=== PATIENT | male | born 1965 | race African-American/Black ===

== ENCOUNTER 2017-09-02 20:14 | Emergency (ER) | payer MEDICAID ==
[~2017-09-02] VITALS: Ht 180.3 cm; Wt 104.3 kg
--- NOTE | 2017-09-02 21:24 | NUR ---
CALLED PT IN [place] X3. PT STATES HE WANTS TO SLEEP AT THIS TIME.
[2017-09-02] MEDS ORDERED: IBUPROFEN 600 MG TABLET PO ONE ×2 (21:54→22:00)
[2017-09-02] MEDS ORDERED: TRAMADOL HCL 50 MG TABLET ONE (21:54)
[2017-09-02] MEDS ORDERED: TRAMADOL HCL 50 MG TABLET PO ONE (22:00)
[2017-09-02 22:03] VITALS: BP 160/80
== END 2017-09-02 22:03 | disposition home or self-care (01) ==
LOC: ER 20:16
DX: G89.29 Other chronic pain (principal); M25.561 Pain in right knee; M25.562 Pain in left knee; M17.0 Bilateral primary osteoarthritis of knee; I10 Essential (primary) hypertension; Z59.0 Homelessness
CPT/HCPCS: 99283; A4606; Z7610

== ENCOUNTER 2021-10-18 11:17 | Emergency (ER) | payer MEDICAID, OTHER ==
[~2021-10-18] VITALS: Ht 182.9 cm; Wt 107.0 kg
--- NOTE | 2021-10-18 11:17 | NUR ---
MARINA FROM [facility] FOR GTUBE REPLACEMENT "[facility]OMA IS CLOSED ALREADY" PT IS AAOX0 NON VERBAL, ON TRACH AT 6LPM, HOOKED TO V/S MONITOR, KEPT RESTED AND COMFORTABLE. WILL CONTINUE TO MONITOR.
--- NOTE | 2021-10-18 11:35 | NUR ---
MOVE SHEET SUBMITTED AND CALLED FOR MS BED.
--- NOTE | 2021-10-18 11:50 | NUR ---
IV LINE ESTABLISHED BLOOD DRAWN AND SENT TO LAB.
[2021-10-18] MEDS ORDERED: AMLO5TAB4 GT (12:03)
[2021-10-18] MEDS ORDERED: DOCU-141 PO (12:03)
[2021-10-18] MEDS ORDERED: PIPE3.379 IV (12:03)
[2021-10-18] MEDS ORDERED: ALBU8.5H8 IH (12:03)
[2021-10-18] MEDS ORDERED: MULT-447 GT (12:03)
[2021-10-18] MEDS ORDERED: ENOX40DI SQ (12:03)
[2021-10-18] MEDS ORDERED: ASCO500C17 GT (12:03)
[2021-10-18] MEDS ORDERED: FURO-145 PO (12:03)
[2021-10-18] MEDS ORDERED: NUTR250L58 GT (12:03)
[2021-10-18] MEDS ORDERED: ZINC220C6 GT (12:03)
[2021-10-18] MEDS ORDERED: AMIN887L GT (12:03)
--- NOTE | 2021-10-18 12:54 | NUR ---
CALLED DR. JC [phone] GALLEGOS.
[2021-10-18] MEDS ORDERED: CEFTRIAXONE 1GM BAG (ER ONLY) 50 ML IV ONE ×2 (13:00→13:04)
[2021-10-18] MEDS ORDERED: ACETAMINOPHEN 650 MG/SUPP.RECT RC ONE ×2 (13:15→13:30)
[2021-10-18 13:23] LABS: BASOPHILS % (AUTO) 0.4 % (0.0-2.0); EOSINOPHILS % (AUTO) 1.3 % (0.0-6.0); HEMATOCRIT 26 % (39-51); HEMOGLOBIN 8.2 g/dL (13.5-17.5); LYMPHOCYTES # (AUTO) 1.1 K/uL (0.8-4.8); LYMPHOCYTES % (AUTO) 10.2 % (20.0-44.0); MEAN CORPUSCULAR HGB CONC 32 g/dl (31.0-36.0); MEAN CORPUSCULAR VOLUME 82 fL (80-96); MONOCYTES # (AUTO) 0.9 K/uL (0.1-1.30); MONOCYTES % (AUTO) 8.2 % (2.0-12.0); NEUTROPHILS # (AUTO) 8.5 K/uL (1.8-8.9); NEUTROPHILS % (AUTO) 79.9 % (43.0-81.0); PLATELET COUNT (AUTO) 585 K/uL (150-450); RED BLOOD CELL COUNT(AUTO) 3.14 MIL/uL (4.5-6.0); WHITE BLOOD COUNT (AUTO) 10.7 K/uL (4.3-11.0)
--- NOTE | 2021-10-18 13:44 | NUR ---
URINE SPECIMEN COLLECTED AND SENT TO LAB.
--- NOTE | 2021-10-18 14:19 | NUR ---
JAVID RAYO [phone]. WILL FOLLOW UP ABOUT GETTING A BED.
[2021-10-18 14:44] LABS: CALCIUM, SERUM 8.3 mg/dL (8.5-10.1); CARBON DIOXIDE 32 mmol/L (21-32); CHLORIDE 100 mmol/L (98-107); CREATININE 0.5 mg/dL (0.6-1.3); GLUCOSE 101 mg/dL (74-106); POTASSIUM 3.8 mmol/L (3.5-5.1); SODIUM SERUM 139 mmol/L (136-145); UREA NITROGEN, BLOOD 12 mg/dL (7-18)
[2021-10-18 14:51] LABS: ALANINE AMINOTRANSFERASE 41 U/L (12-78); ALKALINE PHOSPHATASE 130 U/L (46-116); ASPARTATE AMINOTRANSFERASE 33 U/L (15-37); BILIRUBIN,DIRECT 0.1 mg/dL (0.0-0.2); BILIRUBIN,TOTAL 0.5 mg/dL (0.2-1.0)
[2021-10-18 14:53] LABS: ALBUMIN 1.4 g/dL (3.4-5.0)
[2021-10-18 15:08] LABS: BILIRUBIN,URINE NEGATIVE (NEGATIVE); COLOR,URINE YELLOW (YELLOW); LEUKOCYTE ESTERASE ,URINE NEGATIVE (NEGATIVE); NITRITE, URINE NEGATIVE (NEGATIVE); PROTEIN,URINE 100 mg/dl (NEGATIVE); UGLUCOSE NEGATIVE (NEGATIVE)
[2021-10-18 15:51] LABS: BACTERIA,URINE None seen /HPF (None Seen); SQUAMOUS EPITHELIAL CELL,UR 0-2 /HPF (None Seen); WBC,URINE 0-2 /HPF (0-3)
--- NOTE | 2021-10-18 15:53 | NUR ---
TRANSFER INFO: ACCEPTING: DR JC NUMBER FOR REPORT: [phone] ROOM: [facility] TRANSPORTATION: [facility] CALL: [phone]
--- NOTE | 2021-10-18 15:59 | NUR ---
CALLED THE [facility] CALL: [phone] NEXT AVAILABLE TRANSPORT IS 2130 PER ILSA
--- NOTE | 2021-10-18 16:02 | NUR ---
JAVID RAYO [phone]. AUTH FOR [facility] IS [id number]
--- NOTE | 2021-10-18 16:05 | NUR ---
CALLED [facility] WITH ETA OF 90 MINS PER SHERLY.
--- NOTE | 2021-10-18 16:06 | NUR ---
CALLED [facility] FOR REPORT ROOM AND RN NOT AVAILABLE. PER UNIT SEC CALL AGAIN AT 1700H.
--- NOTE | 2021-10-18 17:07 | NUR ---
REPORT GIVEN TO EMILY HARTMAN OF [facility].
[2021-10-18 17:28] VITALS: BP 125/62
--- NOTE | 2021-10-18 17:28 | NUR ---
REPORT GIVEN TO EMT FOR PT TRANSFER TO [facility].
== END 2021-10-18 17:55 | disposition short-term general hospital (02) ==
LOC: ER 11:22
DX: Z43.1 Encounter for attention to gastrostomy (principal); R50.9 Fever, unspecified; J98.11 Atelectasis; Z20.822 Contact with and (suspected) exposure to COVID-19; I10 Essential (primary) hypertension; I69.198 Other sequelae of nontraumatic intracerebral hemorrhage; G93.49 Other encephalopathy; Z93.0 Tracheostomy status
CPT/HCPCS: 36415; 71045; 80048; 80076; 81001; 83605; 84145; 84484; 85025; 85730; 87040 ×2; 87081; 87086; 87426; 93005; 96365; 99285; C9803; J0696

== ENCOUNTER 2022-01-17 10:12 | Inpatient (IN) | payer OTHER ==
[~2022-01-17] VITALS: Ht 182.9 cm; Wt 83.5 kg
[~2022-01-17 10:12] MED LIST: ALBU8.5H8 IH; AMIN887L GT; AMLO5TAB4 GT; ASCO500C17 GT; DOCU-141 PO; ENOX40DI SQ; FURO-145 PO; MULT-447 GT; NUTR250L58 GT; PIPE3.379 IV; ZINC220C6 GT
--- NOTE | 2022-01-17 10:20 | NUR ---
JAME FROM [facility] C/O LOW OXYGEN SATURATION OF 80% PER EMS REPORT, SATS AT 96% AT 6LPM UPON ARRIVAL. THE PATIENT IS ALERT AND ORIENTED X3. DENIES PAIN. ATTACHED THE PATIENT TO THE MONITOR. WARM BLANKET PROVIDED FOR COMFORT. WILL CONTINUE TO MONITOR THE PATIENT.
--- NOTE | 2022-01-17 11:00 | NUR ---
COVID SWAB COLLECTED.
[2022-01-17] MEDS ORDERED: ALBUTEROL SULFATE 8 GM HFA.AER.AD IH SCH (12:00)
[2022-01-17] MEDS ORDERED: IV NS 0.9% 500 ML BAG IV ONE ×2 (12:30)
[2022-01-17] MEDS ORDERED: PIPERACILLIN /TAZOBACTAM 3.375 G in IV D5W 50 ML IV ONE (12:30)
[2022-01-17] MEDS ORDERED: VANCOMYCIN 1 GM in IV D5W 250 ML IV ONE (12:30)
--- NOTE | 2022-01-17 12:30 | NUR ---
ONGOING BREATHING TREATMENT
[2022-01-17] MEDS ORDERED: ALBUTEROL FS 2.5 MG/0.5 ML VIAL.NEB ONE (12:32)
[2022-01-17] MEDS: ALBUTEROL FS 2.5 MG/0.5 ML VIAL.NEB NEB SCH (12:33)
[2022-01-17] MEDS ORDERED: VANCOMYCIN 1 GM VIAL ONE (12:35)
[2022-01-17] MEDS ORDERED: PIPERACILLIN /TAZOBACTAM 3.375 G VIAL IV ONE (12:35)
--- NOTE | 2022-01-17 12:35 | NUR ---
MOVE SHEET SUBMITTED
--- NOTE | 2022-01-17 12:35 | NUR ---
RT AT BEDSIDE FOR BREATHING TREATMENT
[2022-01-17 13:38] LABS: BASOPHILS % (AUTO) 0.1 % (0.0-2.0); EOSINOPHILS % (AUTO) 0.1 % (0.0-6.0); HEMATOCRIT 21 % (39-51); LYMPHOCYTES # (AUTO) 0.8 K/uL (0.8-4.8); LYMPHOCYTES % (AUTO) 4.4 % (20.0-44.0); MEAN CORPUSCULAR HGB CONC 31 g/dl (31.0-36.0); MEAN CORPUSCULAR VOLUME 76 fL (80-96); MONOCYTES # (AUTO) 0.6 K/uL (0.1-1.30); MONOCYTES % (AUTO) 3.3 % (2.0-12.0); NEUTROPHILS # (AUTO) 17.4 K/uL (1.8-8.9); NEUTROPHILS % (AUTO) 92.1 % (43.0-81.0); PLATELET COUNT (AUTO) 339 K/uL (150-450); RED BLOOD CELL COUNT(AUTO) 2.71 MIL/uL (4.5-6.0); WHITE BLOOD COUNT (AUTO) 18.9 K/uL (4.3-11.0)
[2022-01-17 13:43] LABS: CALCIUM, SERUM 8.4 mg/dL (8.5-10.1); CARBON DIOXIDE 31 mmol/L (21-32); CHLORIDE 112 mmol/L (98-107); CREATININE 0.7 mg/dL (0.6-1.3); GLUCOSE 72 mg/dL (74-106); POTASSIUM 3.3 mmol/L (3.5-5.1); SODIUM SERUM 149 mmol/L (136-145); UREA NITROGEN, BLOOD 31 mg/dL (7-18)
[2022-01-17 13:56] LABS: ALANINE AMINOTRANSFERASE 65 U/L (12-78); ALKALINE PHOSPHATASE 249 U/L (46-116); ASPARTATE AMINOTRANSFERASE 55 U/L (15-37); BILIRUBIN,DIRECT 0.4 mg/dL (0.0-0.2); BILIRUBIN,TOTAL 0.6 mg/dL (0.2-1.0); TOTAL PROTEIN, SERUM 7.4 g/dL (6.4-8.2)
[2022-01-17 14:05] LABS: ALBUMIN 1.1 g/dL (3.4-5.0)
[2022-01-17 14:19] LABS: HEMOGLOBIN 6.5 g/dL (13.5-17.5)
--- NOTE | 2022-01-17 14:45 | NUR ---
[facility] BED 111-2
--- NOTE | 2022-01-17 14:48 | NUR ---
ATTEMPTED TO GIVE REPORT TO NILESH DIAZ, WITH ANOTHER PATIENT AT THE MOMENT, WILL CALL AGAIN
--- NOTE | 2022-01-17 15:02 | NUR ---
REPORT GIVEN TO NILESH DIAZ FOR SANDIP
--- NOTE | 2022-01-17 15:02 | NUR ---
URINE SAMPLE COLLECTED VIA STRAIGHT CATHETER, SENT TO LAB
--- NOTE | 2022-01-17 15:05 | NUR ---
RN NOTE RECEIVED REPORT FROM ALEX DIAZ FOR SANDIP. PATIENT WILL BE BROUGHT TO ROOM 101.
[2022-01-17 15:45] LABS: BAND % (MANUAL) 20 % (0.0-5.0); LYMPHOCYTES % (MANUAL) 4 % (16-48); METAMYELOCYTES % 2 % (0-0); MONOCYTES % (MANUAL) 2 % (0-11.0); NEUTROPHILS % (MANUAL) 72 (42-76)
[2022-01-17 16:00] VITALS: BP 92/47
[2022-01-17 16:21] LABS: COLOR,URINE DARK YELLOW (YELLOW)
[2022-01-17 16:22] LABS: PH,URINE 6.5 (5.0-8.0); PROTEIN,URINE 1+ mg/dl (NEGATIVE); UGLUCOSE NEGATIVE (NEGATIVE)
[2022-01-17 16:23] LABS: BILIRUBIN,URINE NEGATIVE (NEGATIVE); LEUKOCYTE ESTERASE ,URINE 3+ (NEGATIVE); NITRITE, URINE POSITIVE (NEGATIVE); UROBILINOGEN,URINE 0.2 EU/dL (0.2)
[2022-01-17 16:25] LABS: BACTERIA,URINE 3+ /HPF (None Seen); COARSE GRANULAR CASTS,URINE Few /LPF (None Seen); RBC,URINE 51-80 /HPF (0-2); SQUAMOUS EPITHELIAL CELL,UR Few /HPF (None Seen); WBC,URINE TOO NUMEROUS TO COUN /HPF (0-3)
[2022-01-17] MEDS ORDERED: ONDANSETRON HCL/PF 4 MG/2 ML VIAL IVP PRN (16:30)
[2022-01-17] MEDS ORDERED: ACETAMINOPHEN 325 MG TABLET PO PRN (16:30)
[2022-01-17] MEDS ORDERED: MAG HYDROX/AL HYDROX/SIMETH 30 ML UDC PO PRN (16:30)
--- NOTE | 2022-01-17 16:30 | NUR ---
RN NOTE ATTEMPTED TO CALL PATIENTS BROTHER REGARDING BLOOD CONSENT NO ANSWER
[2022-01-17] MEDS ORDERED: Z GUARD REMEDY 4 OZ OINT TP PRN (17:00)
[2022-01-17] MEDS: VANCOMYCIN 1.25 GM in IV D5W 250 ML IV SCH ×2 (18:00→23:59)
[2022-01-17] MEDS: ZOSYN IVPB 3.375 G in IV D5W 50ml IV SCH ×2 (18:18→23:27)
--- NOTE | 2022-01-17 18:49 | NUR ---
RN NOTE CALLED BLOOD BANK REGARDING PRBC ORDER, BLOOD NOT READY AT THIS MOMENT WILL RECEIVE CALL WHEN READY
--- NOTE | 2022-01-17 18:50 | NUR ---
RN CLOSING NOTE PATIENT RESTING IN BED A/OX0 BUT DOES OPEN EYES. PATIENT ON T PIECE 6L RUNNING. ON BREAKFAST AND ROOM ATTENDANT. PENDING WOUND AND SPEECH EVALUATION. IV ACCESS ON KALYN PICC LINE. PATIENT IS ALSO PENDING PRBC TRANSFUSION CALLED LAB AND WAS INFORMED BLOOD IS NOT READY. WILL ENDORSE ORDERER TO NIGHT NURSE. SAFETY MEASURE IN PLACE CALL LIGHT WITHIN REACH BED ALARM ACTIVATED 2 SIDE RAILS UP AND BED LOCKED IN THE LOWEST POSITION.
--- NOTE | 2022-01-17 19:17 | NUR ---
RN NOTE CALLED PATIENTS FAMILY MEMBER [facility] ANSWER LEFT MESSAGE TO CALL BACK.
--- NOTE | 2022-01-17 19:20 | NUR ---
RN NOTE RECEIVED PATIENT IN BED, OBTUNDED, IN NO ACUTE DISTRESS AT THIS TIME. ON TRACH TO T-PIECE AT 6LPM, SATURATION AT 100%, SR ON THE MONITOR, HR IS 81. KALYN PICC LINE IN PLACE, BOTH HUBS PATENT AND FLUSHING WELL, NO S/S OF INFECTION WITH NS INFUSING AT 75 ML/HR. SAFETY MEASURES IMPLEMENTED. PATIENT BED ALARM IS ON. HEAD OF BED ELEVATED. BED IS LOCKED, IN LOWEST POSITION AND SIDE RAILS UP. CALL LIGHT WITHIN REACH OF THE PATIENT. WILL CONTINUE TO MONITOR AND REASSESS FOR ANY CHANGES.
--- NOTE | 2022-01-17 19:55 | NUR ---
RN NOTE TELEPHONE CALL TO PT'S FAMILY AT [phone], SPOKE WITH MARSHALL LERNER, VERIFIED IF HE IS GIVING CONSENT FOR PATIENT TO HAVE BLOOD TRANSFUSION, HE SAID YES, SHOOK SPLICER ELSA WITNESS.
[2022-01-17 20:00] VITALS: BP_SYST 90; BP_SYST 91; BP_DIAS 45
[2022-01-17 20:15] VITALS: BP 95/54
[2022-01-17] MEDS ORDERED: MAGNESIUM HYDROXIDE 30 ML UDC PO PRN (22:00)
[2022-01-17 23:00] VITALS: BP 94/47
[2022-01-18] VITALS: BP 107/54
[2022-01-18] MEDS: ALBUTEROL FS 2.5 MG/0.5 ML VIAL.NEB NEB SCH ×5 (00:12→19:28)
[2022-01-18 04:00] VITALS: BP 96/51
[2022-01-18] MEDS: ZOSYN IVPB 3.375 G in IV D5W 50ml IV SCH ×4 (05:46→23:20)
[2022-01-18] MEDS: IV NS 0.9% 1,000 ML IV PRN ×2 (06:05→15:01)
[2022-01-18 06:48] LABS: BASOPHILS % (AUTO) 0.4 % (0.0-2.0); EOSINOPHILS % (AUTO) 0.4 % (0.0-6.0); HEMATOCRIT 23 % (39-51); HEMOGLOBIN 7.6 g/dL (13.5-17.5); LYMPHOCYTES # (AUTO) 2.4 K/uL (0.8-4.8); LYMPHOCYTES % (AUTO) 22.1 % (20.0-44.0); MEAN CORPUSCULAR HGB CONC 33 g/dl (31.0-36.0); MEAN CORPUSCULAR VOLUME 77 fL (80-96); MONOCYTES # (AUTO) 0.6 K/uL (0.1-1.30); MONOCYTES % (AUTO) 5.3 % (2.0-12.0); NEUTROPHILS # (AUTO) 7.8 K/uL (1.8-8.9); NEUTROPHILS % (AUTO) 71.8 % (43.0-81.0); PLATELET COUNT (AUTO) 316 K/uL (150-450); RED BLOOD CELL COUNT(AUTO) 3.01 MIL/uL (4.5-6.0); WHITE BLOOD COUNT (AUTO) 10.8 K/uL (4.3-11.0)
[2022-01-18 06:49] LABS: CALCIUM, SERUM 7.9 mg/dL (8.5-10.1); CREATININE 0.9 mg/dL (0.6-1.3); PHOSPHORUS 3.3 mg/dL (2.5-4.9); POTASSIUM 3.5 mmol/L (3.5-5.1)
--- NOTE | 2022-01-18 07:30 | NUR ---
RN NOTE RECEIVED PATIENT IN BED RESTING OBTUNDED,NONVERBAL,LETHARGIC,ON T PIECE 10L FIO2:40% O2:98%,NPO,IV SITE IS ON LEFT UPPER ARM PICC LINE INTACT PATENT,ON NS IV HYDRATION 75CC/HR,SAFETY MEASURE IMPLEMENT BED IN LOW POSITION AND LOCKED HEAD OF THE BED ELEVATED,CONTINUE TO MONITOR.
--- NOTE | 2022-01-18 07:31 | NUR ---
RN NOTE PATIENT HAS CONDOM CATH URINE DARK YELLOW AND CLOUDY DRAINING BY GRAVITY,CONTINUE TO MONITOR.
[2022-01-18] MEDS: VANCOMYCIN 1.25 GM in IV D5W 250 ML IV SCH ×3 (07:36→19:43)
[2022-01-18 08:00] VITALS: BP 99/49
[2022-01-18] MEDS: PANTOPRAZOLE 40 MG VIAL IV SCH (08:17)
--- NOTE | 2022-01-18 11:08 | NUR ---
WOUND CARE CONSULT: PT PRESENTS WITH DRY WOUND/SCARRING TO LEFT EYEBROW AREA, SACRAL UNSTAGEABLE PRESSURE ULCER, WOUND TO RT CLAVICLE, DISCOLORATION TO RT ANKLE, DRY WOUND TO LEFT ANKLE AND DRY SCABS TO RT KNEE, ALL PRESENT ON ADMISSION. DR MCKEON AND DR GARCIA NOTIFIED OF SURGICAL AND DPM CONSULT REQUESTS. RECOMMENDATIONS MADE FOR SKIN PROTECTION. DISCUSSED WITH NURSING STAFF. FIRST STEP LOW AIRLOSS MATTRESS IS ON ORDER. MD IN AGREEMENT WITH PLAN OF CARE. Addendum: 01/18/22 at 1109 by JOCELYNE MACIEL WNDNU Amended: Links added.
[2022-01-18 12:00] VITALS: BP 106/55
[2022-01-18] MEDS: MICAFUNGIN SODIUM 100 MG in IV NS 0.9% 100 ML IV SCH (14:07)
[2022-01-18 16:00] VITALS: BP 97/50
[2022-01-18] MEDS ORDERED: SILVER NITRATE APPLICATOR 1 EA BOX TP SCH (16:00)
[2022-01-18] MEDS ORDERED: LIDOCAINE 1%-EPI 1:200,000 SDV 10 ML VIAL IJ ONE (16:00)
[2022-01-18] MEDS: THERAHONEY GEL 1.5 OZ TUBE TP SCH (16:00)
[2022-01-18] MEDS: ACETAMINOPHEN 650 MG/SUPP.RECT RC PRN (18:18)
--- NOTE | 2022-01-18 18:20 | NUR ---
RN NOTE ACETAMINOPHEN 650 MG PRN GIVEN FOR FEVER 100.0 CONTINUE TO MONITOR.
--- NOTE | 2022-01-18 19:29 | NUR ---
RN NOTE PATIENT REMAINS,OBTUNDED NON VERBAL LETHARGIC ,NPO ON 10 L T-PIECE 40% O2:98% IV SITE IS ON LEFT UPPER ARM PICC LINE INTACT PATENT KEPT PATIENT CLEAN AND DRY ALL THE TIME,KEPT COMFORTABLE,TURNED AND REPOSITIONED EVERY 2 HOURS,HEAD OF THE BED ELEVATED,ALL THE TIME,ENDORSE NEXT COMING SHIFT FOR CONTINUATION OF CARE.
--- NOTE | 2022-01-18 19:30 | NUR ---
PACKAGE CHECKER OPENING NOTE RECEIVED PATIENT IN BED, OBTUNDED, ON TRACH TO T-PIECE AT 6LPM, TOLERATING WELL, O2 SATURATION AT 100%. PT SHOWS NO S/SX OF ACUTE DISTRESS NOTED AT THIS TIME. SR ON TELE MONITOR. KALYN PICC LINE IN PLACE, BOTH HUBS PATENT AND FLUSHING WELL, NO S/S OF INFECTION WITH NS INFUSING AT 75 ML/HR. ALL SAFETY MEASURES IN PLACE: BED ALARM IS ON. HEAD OF BED ELEVATED. BED IS LOCKED, IN LOWEST POSITION AND SIDE RAILS UP. CALL LIGHT WITHIN REACH. WILL CONTINUE TO MONITOR AND REASSESS FOR ANY CHANGES.
--- NOTE | 2022-01-18 19:50 | NUR ---
RN NOTE CALLED RX TO INFORM PT HAS VANCO TROUGH LEVEL OF 35 NOTED TODAY AT 1500. RX SAID THEY HAVE ADJUSTED THE DOSE AND TO GO AHEAD AND GIVE VANCO SCHEDULED FOR 1999. WENT AHEAD AND ADMINISTERED PT'S VANCO.
[2022-01-18 20:00] VITALS: BP 112/61
[2022-01-19] VITALS: BP 134/59
[2022-01-19] MEDS: ALBUTEROL FS 2.5 MG/0.5 ML VIAL.NEB NEB SCH ×4 (01:24→19:24)
[2022-01-19 04:00] VITALS: BP 134/70
[2022-01-19] MEDS: ZOSYN IVPB 3.375 G in IV D5W 50ml IV SCH ×4 (05:21→23:53)
[2022-01-19 06:44] LABS: CALCIUM, SERUM 6.8 mg/dL (8.5-10.1); POTASSIUM 3.1 mmol/L (3.5-5.1)
--- NOTE | 2022-01-19 07:12 | NUR ---
OUTREACH AND EDUCATION SOCIAL WORKER CLOSING NOTE NO SIGNIFICANT CHANGES THROUGHOUT THE SHIFT. PATIENT IN BED, OBTUNDED, ON TRACH TO T-PIECE AT 6LPM, TOLERATING WELL, O2 SATURATION AT 99%. NO S/SX OF ACUTE DISTRESS NOTED. SR TO SB ON TELE MONITOR, HR RANGES BETWEEN 50-60s. KALYN PICC LINE IN PLACE, BOTH HUBS PATENT AND FLUSHING WELL, NO S/S OF INFECTION WITH NS INFUSING AT 75 ML/HR. ALL DUE MEDS GIVEN. ALL NEEDS ATTENDED TO. SAFETY MEASURES IMPLEMENTED: BED ALARM IS ON. HEAD OF BED ELEVATED. BED IS LOCKED, IN LOWEST POSITION AND SIDE RAILS UP. CALL LIGHT WITHIN REACH. WILL ENDORSE TO AM SHIFT NURSE FOR SANDIP.
--- NOTE | 2022-01-19 07:25 | NUR ---
ORIENTAL RUG STRETCHER OPENING NOTE RECEIVED PATIENT IN BED, OBTUNDED, ON TRACH TO T-PIECE AT 6LPM, TOLERATING WELL, O2 SATURATION AT 100%. PT SHOWS NO S/SX OF ACUTE DISTRESS NOTED AT THIS TIME. SR ON TELE MONITOR. KALYN PICC LINE IN PLACE, NO S/S OF INFECTION WITH NS INFUSING AT 75 ML/HR. ALL SAFETY MEASURES IN PLACE: BED ALARM IS ON. HEAD OF BED ELEVATED. BED IS LOCKED, IN LOWEST POSITION AND SIDE RAILS UP. CALL LIGHT WITHIN REACH. PATIENT IS PENDING SWALLOW EVALUATION HE WAS LETHARGIC YESTERDAY AND FAILED EVALUATION.
[2022-01-19 08:00] VITALS: BP 123/75
[2022-01-19] MEDS: PANTOPRAZOLE 40 MG VIAL IV SCH (08:08)
[2022-01-19] MEDS: VANCOMYCIN 1.25 GM in IV D5W 250 ML IV SCH ×2 (08:09→20:00)
[2022-01-19] MEDS: THERAHONEY GEL 1.5 OZ TUBE TP SCH (08:09)
--- NOTE | 2022-01-19 08:09 | NUR ---
RN NOTE LAST VANCO TROUGH NOTED TO BE 35 CALLED PHARMACY, DOSE HAS BEEN ADJUSTED AND TROUGH WILL RE REDRAWN MONTY AT 1900. WILL PROCEED WITH ADMINISTRATION
[2022-01-19] MEDS: IV D5/0.45 NACL 1,000 ML IV SCH ×2 (09:19→21:48)
[2022-01-19] MEDS: POTASSIUM CL. PREMIX PERIPHER. 50 ML IV SCH ×4 (09:20→12:54)
[2022-01-19] MEDS ORDERED: POTASSIUM CL. PREMIX PERIPHER. 50 ML IV SCH (10:00)
--- NOTE | 2022-01-19 10:39 | NUR ---
RN NOTE PICC CATH TIP COLLECTED AND SENT TO LAB FOR CULTURE, CULTURE ORDER PLACED.
[2022-01-19 11:24] LABS: BASOPHILS # (AUTO) 0.1 K/uL (0.0-0.2); BASOPHILS % (AUTO) 0.9 % (0.0-2.0); EOSINOPHILS % (AUTO) 0.7 % (0.0-6.0); HEMATOCRIT 23 % (39-51); HEMOGLOBIN 7.5 g/dL (13.5-17.5); LYMPHOCYTES # (AUTO) 2.6 K/uL (0.8-4.8); LYMPHOCYTES % (AUTO) 24.6 % (20.0-44.0); MEAN CORPUSCULAR HGB CONC 33 g/dl (31.0-36.0); MEAN CORPUSCULAR VOLUME 77 fL (80-96); MONOCYTES # (AUTO) 0.9 K/uL (0.1-1.30); MONOCYTES % (AUTO) 8.4 % (2.0-12.0); NEUTROPHILS # (AUTO) 6.9 K/uL (1.8-8.9); NEUTROPHILS % (AUTO) 65.4 % (43.0-81.0); PLATELET COUNT (AUTO) 377 K/uL (150-450); RED BLOOD CELL COUNT(AUTO) 2.94 MIL/uL (4.5-6.0); WHITE BLOOD COUNT (AUTO) 10.6 K/uL (4.3-11.0)
[2022-01-19 11:34] LABS: CALCIUM, SERUM 7.4 mg/dL (8.5-10.1); CREATININE 1.1 mg/dL (0.6-1.3); POTASSIUM 3.4 mmol/L (3.5-5.1)
[2022-01-19 12:00] VITALS: BP 126/72
[2022-01-19 16:00] VITALS: BP 124/64
[2022-01-19] MEDS: MICAFUNGIN SODIUM 100 MG in IV NS 0.9% 100 ML IV SCH (16:01)
--- NOTE | 2022-01-19 18:41 | NUR ---
CONCRETE TESTER CLOSING NOTE NO SIGNIFICANT CHANGES THROUGHOUT THE SHIFT. PATIENT IN BED, OBTUNDED, ON TRACH TO T-PIECE AT 6LPM, TOLERATING WELL, O2 SATURATION AT 99%. NO S/SX OF ACUTE DISTRESS NOTED. SR TO SB ON TELE MONITOR, HR RANGES BETWEEN 50-60s. ARYAN MIDLINE LINE IN PLACE, BOTH HUBS PATENT AND FLUSHING WELL, NO S/S OF INFECTION WITH D 5 1/2NS INFUSING AT 75 ML/HR. ALL DUE MEDS GIVEN. ALL NEEDS ATTENDED TO. SAFETY MEASURES IMPLEMENTED: BED ALARM IS ON. HEAD OF BED ELEVATED. BED IS LOCKED, IN LOWEST POSITION AND SIDE RAILS UP. CALL LIGHT WITHIN REACH. WILL ENDORSE TO NIGHT NURSE FOR SANDIP.
--- NOTE | 2022-01-19 19:30 | NUR ---
RN OPENING NOTE RECEIVED CARE OF PATIENT FROM AM NURSE, PATIENT OBTUNDED, NON-INTERACTIVE, OPENS EYES. PATIENT NOTED WITH TRACH TO T-PIECE AT 10L/MIN, O2 SAT 100%, TOLERATING WELL. PATIENT ON TELE MONITOR SHOWING SR WITH HR OF 75, NO DISTRESS NOTED ON PATIENT. ARYAN MIDLINE LINE IN PLACE WITH D 5 1/2NS INFUSING AT 75 ML/HR. SAFETY MEASURES IMPLEMENTED: BED ALARM IS ON. HEAD OF BED ELEVATED. BED IS LOCKED, IN LOWEST POSITION AND SIDE RAILS UP. CALL LIGHT WITHIN REACH. WILL CONTINUE TO MONITOR PATIENT.
[2022-01-19 20:00] VITALS: BP 117/54
--- NOTE | 2022-01-19 20:36 | NUR ---
RN NOTES WILL HOLD VANCO 1.25GM IN IV D5W 250 ML ADMINISTRATION DUE TO VANCO TROUGH OF 36. [facility] AFTER HOURS MADE AWARE. NO NEW ORDERS FROM PHARMACY AT THIS TIME.
[2022-01-20] VITALS: BP 118/62
[2022-01-20] MEDS: ALBUTEROL FS 2.5 MG/0.5 ML VIAL.NEB NEB SCH ×4 (01:27→19:32)
[2022-01-20 04:00] VITALS: BP 120/52
[2022-01-20] MEDS: ZOSYN IVPB 3.375 G in IV D5W 50ml IV SCH ×4 (05:28→23:57)
--- NOTE | 2022-01-20 06:28 | NUR ---
RN CLOSING NOTES WILL ENDORSE CARE OF PATIENT TO AM NURSE WITH NO SIGNIFICANT CHANGES TO PATIENT'S CONDITION. NO SIGNIFICANT FINDINGS UPON ALL NURSING ASSESSMENTS. ALL DUE MEDS GIVEN AND WOUND CARE DONE ORDERED. PATIENT'S NEEDS ANTICIPATED AND MET THROUGHOUT SHIFT. SAFETY MEASURES IMPLEMENTED PER HOSPITAL PROTOCOLS. WILL ENDORSE TO AM NURSE FOR CONTINUITY OF CARE.
[2022-01-20 06:38] LABS: BASOPHILS # (AUTO) 0.1 K/uL (0.0-0.2); BASOPHILS % (AUTO) 0.6 % (0.0-2.0); EOSINOPHILS % (AUTO) 0.7 % (0.0-6.0); HEMATOCRIT 23 % (39-51); HEMOGLOBIN 7.4 g/dL (13.5-17.5); LYMPHOCYTES # (AUTO) 2.4 K/uL (0.8-4.8); LYMPHOCYTES % (AUTO) 24.9 % (20.0-44.0); MEAN CORPUSCULAR HGB CONC 32 g/dl (31.0-36.0); MEAN CORPUSCULAR VOLUME 78 fL (80-96); MONOCYTES # (AUTO) 0.9 K/uL (0.1-1.30); MONOCYTES % (AUTO) 9.3 % (2.0-12.0); NEUTROPHILS # (AUTO) 6.2 K/uL (1.8-8.9); NEUTROPHILS % (AUTO) 64.5 % (43.0-81.0); PLATELET COUNT (AUTO) 384 K/uL (150-450); RED BLOOD CELL COUNT(AUTO) 2.94 MIL/uL (4.5-6.0); WHITE BLOOD COUNT (AUTO) 9.5 K/uL (4.3-11.0)
[2022-01-20 07:04] LABS: CALCIUM, SERUM 7.4 mg/dL (8.5-10.1); CREATININE 1.2 mg/dL (0.6-1.3); POTASSIUM 3.7 mmol/L (3.5-5.1)
--- NOTE | 2022-01-20 07:50 | NUR ---
PATIENT FOUND C/A 40% WITH SAT 98%. PATIENT REMAIN STABLE WITHOUT SOB. Addendum: 01/20/22 at 0751 by MOISES CERNA RT Amended: Links added.
--- NOTE | 2022-01-20 07:57 | NUR ---
telecommunications sales representative ote patient in bed with trach to cooler aerosol 10l fio2 40% , obtunded, on tele monitor, sr hr 63 at this time rt at bedside breathing tx doing , on npo at this time, all needs attended, with condom cath yellow color urine noted , lt upper arn mid line in place and flushed well all needs attended will monitor,
[2022-01-20 08:00] VITALS: BP 115/56
[2022-01-20] MEDS: VANCOMYCIN 1.25 GM in IV D5W 250 ML IV SCH ×3 (08:00→21:40)
[2022-01-20] MEDS: PANTOPRAZOLE 40 MG VIAL IV SCH (08:33)
[2022-01-20] MEDS: THERAHONEY GEL 1.5 OZ TUBE TP SCH (08:35)
--- NOTE | 2022-01-20 09:28 | NUR ---
CHIEF ENTERPRISE ARCHITECT NOTE [facility] LEVEL 23 PHARMACY NOTIFIED WILL HOLD DOSE AT THIS TIME
[2022-01-20] MEDS: IV D5/0.45 NACL 1,000 ML IV SCH (10:34)
[2022-01-20 12:00] VITALS: BP 123/66
--- NOTE | 2022-01-20 12:00 | NUR ---
PIERCING MACHINE OPERATOR NOTE TURN REPOSITION ALL NEEDS ATTENDED
--- NOTE | 2022-01-20 13:30 | NUR ---
REIMBURSEMENT CONSULTANT NOTE TAKEN TO CT CHEST ORDERED WITH RT , WILL F\U
[2022-01-20] MEDS: MICAFUNGIN SODIUM 100 MG in IV NS 0.9% 100 ML IV SCH (14:51)
[2022-01-20 16:00] VITALS: BP 121/71
--- NOTE | 2022-01-20 16:30 | NUR ---
television receiver analyzer note resting comfortably , all needs attended rt at bedside will cont to monitor closely
--- NOTE | 2022-01-20 18:56 | NUR ---
television actor note rounds made, with trach to cooler aerosol as ordered, no sob noted , trach care done turn reposition done, on ivf as ordered bed in lowest and locked position , will cont to monitor closely
[2022-01-20 20:00] VITALS: BP_SYST 105; BP_SYST 126; BP_DIAS 59
--- NOTE | 2022-01-20 21:25 | NUR ---
manufacturing maintenance technician Opening Note Pt received in bed, obtunded with eyes open, non-verbal. Pt noted to have trach with Portex #7 on cool aerosol at 10L, FiO2 at 40%. Pt has no s/s of resp distress, non-labored and equal breathing, no SOB or cough. Pt attached to external monitor, currently SR with HR at 81 bpm. Pt noted to have condom cath and is draining clear and yellow urine. Pt has ARYAN midline 18G, currently has D5 1/2 NS running at 75 ml/hr; midline intact and patent. Bed in lowest position, call light within reach, side rails up x3. Will continue to monitor throughout the night. Addendum: 01/20/22 at 2133 by PRINCESS SUSANA DIAZ O2sat currently 100%.
--- NOTE | 2022-01-20 21:33 | NUR ---
RN Note Pt noted to have vanco trough of 23. [facility] made aware and advised to hold Vanco scheduled for 2099. Addendum: 01/20/22 at 2138 by PRINCESS SUSANA DIAZ RN Note Vanco trough level result came back 01/20/22 at 1947 and is noted to be 18. Vanco will be administered as scheduled.
[2022-01-21] VITALS: BP 128/66
[2022-01-21] MEDS: ALBUTEROL FS 2.5 MG/0.5 ML VIAL.NEB NEB SCH ×4 (01:48→20:23)
[2022-01-21] MEDS: IV D5/0.45 NACL 1,000 ML IV SCH ×2 (02:46→14:05)
[2022-01-21 04:00] VITALS: BP 134/73
[2022-01-21] MEDS: ZOSYN IVPB 3.375 G in IV D5W 50ml IV SCH (05:00)
--- NOTE | 2022-01-21 06:01 | NUR ---
assembler mechanical ordnance Closing Note Pt remains in bed, obtunded, non-verbal, opens eyes. Pt remains on trach collar at 10L cool aerosol qith FiO2 40%; pt shows no s/s of resp distress throughout the night, no SOB or cough noted, has non-labored and equal breathing. Attached to external monitor, SB-SR with HR as low as 48 abd was as high as 63. Pt's condom cath intact and patent, draining clear and yellow urine. ARYAN midline remains intact and patent with D5 1/2 NS running at 75 ml/hr; infused IV vanco and zosyn during shift. Pt remained NPO throughout the night. All due meds and fluids administered during shift. Bed in lowest position, call light within reach, side rails up x3. Will endorse to dayshift nurse to continue care.
[2022-01-21 06:46] LABS: CALCIUM, SERUM 7.8 mg/dL (8.5-10.1); CREATININE 1.1 mg/dL (0.6-1.3); POTASSIUM 3.4 mmol/L (3.5-5.1)
--- NOTE | 2022-01-21 07:00 | NUR ---
engraver pantograph Opening Note Received patient from nightshift RN. Patient remains in bed, obtunded, non-verbal, opens eyes and tracking. Patient remains on trach collar at 10L cool aerosol qith FiO2 40%; patient shows no signs or symptoms of respiratory distress, no shortness of breath or cough noted, has non-labored and equal breathing. Attached to external monitor. Patient's condom catheter is intact and patent, draining clear and yellow urine. Left upper arm midline remains intact and patent with D5 1/2 NS running at 75 ml/hr. NPO status noted. Bed in lowest position, call light within reach, side rails up x3. Will continue plan of care and anticipate needs.
[2022-01-21 07:03] LABS: BASOPHILS # (AUTO) 0.1 K/uL (0.0-0.2); BASOPHILS % (AUTO) 0.5 % (0.0-2.0); EOSINOPHILS % (AUTO) 0.7 % (0.0-6.0); HEMATOCRIT 23 % (39-51); HEMOGLOBIN 7.1 g/dL (13.5-17.5); LYMPHOCYTES # (AUTO) 2.3 K/uL (0.8-4.8); LYMPHOCYTES % (AUTO) 20.8 % (20.0-44.0); MEAN CORPUSCULAR HGB CONC 31 g/dl (31.0-36.0); MEAN CORPUSCULAR VOLUME 79 fL (80-96); MONOCYTES # (AUTO) 0.9 K/uL (0.1-1.30); MONOCYTES % (AUTO) 7.8 % (2.0-12.0); NEUTROPHILS # (AUTO) 7.9 K/uL (1.8-8.9); NEUTROPHILS % (AUTO) 70.2 % (43.0-81.0); PLATELET COUNT (AUTO) 389 K/uL (150-450); RED BLOOD CELL COUNT(AUTO) 2.86 MIL/uL (4.5-6.0); WHITE BLOOD COUNT (AUTO) 11.2 K/uL (4.3-11.0)
[2022-01-21 08:00] VITALS: BP 118/54
--- NOTE | 2022-01-21 08:01 | NUR ---
pt. is awake but unable to follow commands, decreased fio2 from 40% to 28% fio2 via cool aerosol due to 99% - 100% spo2. rn notified on changes made. Addendum: 01/21/22 at 0803 by ALTON ZAPIEN RT Amended: Links added.
[2022-01-21] MEDS: THERAHONEY GEL 1.5 OZ TUBE TP SCH (08:09)
[2022-01-21] MEDS: PANTOPRAZOLE 40 MG VIAL IV SCH (08:09)
[2022-01-21] MEDS: POTASSIUM CL. PREMIX PERIPHER. 50 ML IV SCH ×2 (10:37→11:00)
[2022-01-21 12:00] VITALS: BP 123/53
[2022-01-21] MEDS: CEFEPIME 1 GM in IV D5W 50 ML IV SCH (12:33)
[2022-01-21] MEDS: MICAFUNGIN SODIUM 100 MG in IV NS 0.9% 100 ML IV SCH (14:06)
[2022-01-21 16:00] VITALS: BP 126/54
--- NOTE | 2022-01-21 16:00 | NUR ---
RN NOTE DURING ROUTINE PATIENT ROUNDING, NOTICED PATIENT HAD SECRETIONS COMING FROM TRACH SITE. SUCTIONED TWO TIMES AND PERFORMED TRACH CARE. WILL CONTINUE PLAN OF CARE AND ANTICIPATE NEEDS.
--- NOTE | 2022-01-21 18:54 | NUR ---
assessment director Closing Note Patient remains in bed, obtunded, non-verbal, opens eyes and tracking. Patient remains on trach collar at 10L cool aerosol qith FiO2 40%; patient shows no signs or symptoms of respiratory distress, no shortness of breath or cough noted, has non-labored and equal breathing. Attached to external monitor. Patient's condom catheter is intact and patent, draining clear and yellow urine. Left upper arm midline remains intact and patent with D5 1/2 NS running at 75 ml/hr. NPO status noted. Bed in lowest position, call light within reach, side rails up x3. Will endorse to nightshift RN for continuation of care.
[2022-01-21 20:00] VITALS: BP 155/83
[2022-01-21] MEDS: ACETAMINOPHEN 650 MG/SUPP.RECT RC PRN (22:10)
--- NOTE | 2022-01-21 22:11 | NUR ---
RN NOTES: PT'S TEMP INCREASED TO 100.9 F, TYLENOL SUPPOSITORY GIVEN AND PT TOLERATED WELL. WILL CONTINUE TO MONITOR
[2022-01-22] VITALS: BP 132/74
[2022-01-22] MEDS: CEFEPIME 1 GM in IV D5W 50 ML IV SCH ×2 (00:25→11:09)
[2022-01-22] MEDS: ALBUTEROL FS 2.5 MG/0.5 ML VIAL.NEB NEB SCH ×4 (02:09→19:30)
[2022-01-22] MEDS: IV D5/0.45 NACL 1,000 ML IV SCH ×2 (03:45→19:55)
[2022-01-22 04:00] VITALS: BP 130/72
--- NOTE | 2022-01-22 06:37 | NUR ---
RN CLOSING NOTES: PT IN BED, AWAKE, OBTUNDED, NON- VERBAL. ON SETTING T-PIECE AT 5L/MIN WITH COLD AEROSOL. O2 SAT 100%. IV ACCESS ON ARYAN MIDLINE INTACT AND PATENT. RUNNING D5 1/2 NS AT 75CC/HR. NO FACIAL GRIMACING NOTED. NO ACUTE DISTRESS. STILL NOTED LOTS OF SECRETION. SUCTION NEEDED. ALL DUE MEDS GIVEN PER ORDERED. PT AFEBRILE. ON CONDOM CATHETER, RUNNING BY GRAVITY. NOTED BEBETO COLOR URINE. ALL SAFETY MEASURES IN PLACE. SIDE RAILS UP X3, BED IN LOWEST POSITION AND LOCKED. PLACE CALL LIGHT WITH IN REACH. WILL ENDORSE TO MORNING SHIFT NURSE.
--- NOTE | 2022-01-22 07:00 | NUR ---
RN NOTES RECEIVED PT ON BED, TRACH DEPENDENT, ON T PIECE , PT NON VERBAL , DOES NOT FOLLOW COMMAND, ON TELE SB HR IN 50'S , IV SITE CLEAN ,DRY AND INTAC,T SR UP x3 , CALL LIGHT WITHIN EASY REACH, BED LOCKED AND IN LOWEST POSITION, CONTINUE TO MONITOR
[2022-01-22 08:00] VITALS: BP 141/73
[2022-01-22 08:24] LABS: BASOPHILS % (AUTO) 0.3 % (0.0-2.0); EOSINOPHILS % (AUTO) 1.2 % (0.0-6.0); HEMATOCRIT 25 % (39-51); HEMOGLOBIN 7.7 g/dL (13.5-17.5); LYMPHOCYTES # (AUTO) 1.9 K/uL (0.8-4.8); LYMPHOCYTES % (AUTO) 20.1 % (20.0-44.0); MEAN CORPUSCULAR HGB CONC 32 g/dl (31.0-36.0); MEAN CORPUSCULAR VOLUME 80 fL (80-96); MONOCYTES # (AUTO) 0.7 K/uL (0.1-1.30); MONOCYTES % (AUTO) 7.3 % (2.0-12.0); NEUTROPHILS # (AUTO) 6.6 K/uL (1.8-8.9); NEUTROPHILS % (AUTO) 71.1 % (43.0-81.0); PLATELET COUNT (AUTO) 382 K/uL (150-450); RED BLOOD CELL COUNT(AUTO) 3.09 MIL/uL (4.5-6.0); WHITE BLOOD COUNT (AUTO) 9.2 K/uL (4.3-11.0)
[2022-01-22 08:38] LABS: CALCIUM, SERUM 7.6 mg/dL (8.5-10.1); CREATININE 0.9 mg/dL (0.6-1.3); PHOSPHORUS 3.5 mg/dL (2.5-4.9); POTASSIUM 3.1 mmol/L (3.5-5.1)
[2022-01-22] MEDS: PANTOPRAZOLE 40 MG VIAL IV SCH (09:11)
[2022-01-22] MEDS: THERAHONEY GEL 1.5 OZ TUBE TP SCH (09:12)
[2022-01-22] MEDS: VANCOMYCIN 1.25 GM in IV D5W 250 ML IV SCH (09:14)
[2022-01-22] MEDS: POTASSIUM CL. PREMIX PERIPHER. 50 ML IV SCH ×4 (11:07→14:11)
[2022-01-22 12:00] VITALS: BP 133/74
[2022-01-22] MEDS: MICAFUNGIN SODIUM 100 MG in IV NS 0.9% 100 ML IV SCH (13:50)
[2022-01-22 16:00] VITALS: BP 95/45
--- NOTE | 2022-01-22 18:00 | NUR ---
RN NOTES NO SIGNFICANT CHANGES NOTED ON THIS SHIFT, WILL ENDORSE TO HEALTH AND SAFETY MANAGER NURSE FOR CONTINUITY OF CARE .
--- NOTE | 2022-01-22 19:20 | NUR ---
RN opening notes Received Pt from morning nurse. Pt is resting in bed comfortably. Pt is obtunded, non verbal and able to open eyes. On cool aerosol. No SOB. No S/S of distress noted. Tele monitor showed [facility] at 49. ARYAN midline is clean, intact and infusing well D51/2 NS @ 75 ml/hr. Safety precautions is maintained. Bed at low position, brakes locked, side rails upX3, hob elevated, bed alarm is on and call light is within reach. Will continue to monitor.
--- NOTE | 2022-01-22 19:30 | NUR ---
RN notes Pt is going to have PEG placement with Dr. Bob accompanied by primary nurse, two OR nurse and RT. Charge nurse is aware and informed.
[2022-01-22] MEDS ORDERED: ANESTHESIA TRAY IN PYXIS 1 EA TRAY MC ONE (19:38)
--- NOTE | 2022-01-22 20:37 | NUR ---
RN notes Pt just came from OR with NS infuising. Received report from EMILY Dawson. VS is stable. Pt tolerated activity well. Dressing is intact with very minimal blood. EMILY Dawson informed that is normal after procedure. Will continue to monitor.
--- NOTE | 2022-01-22 20:38 | NUR ---
RN notes Per Eunice RN Dr. Bob ordered NPO excepts meds and starts feeding in am and nutritional consult ordered.
--- NOTE | 2022-01-22 20:45 | NUR ---
RN notes Gave Pharmacist Ethan Pt's meds lists from Dr. Bob.
[2022-01-22 21:00] VITALS: BP 113/63
--- NOTE | 2022-01-22 22:26 | NUR ---
RN notes Informed and notified Dr. Anderson that Pt is bedbound, open wound on sacral area and urinating a lot. MD ordered squires cath. order carried out. charge nurse is aware and informed.
[2022-01-22] MEDS ORDERED: Potassium Chloride 30 MEQ in IV D5/0.45 NACL 1,000 ML IV SCH (22:30)
[2022-01-22] MEDS ORDERED: IV PREMIX D5 1/2NS + KCL 1,000 ML IV ONE (23:13)
--- NOTE | 2022-01-22 23:31 | NUR ---
RN notes Informed and notifed Dr. Cuellar that IV premix potassium chloride 30 meq D5 1/2 NS is not available at this time. Rechecked with kayley Vasquez RN. We don't have IV fluids at this time. MD ordered 20 meq in D5 1/2 NS @ 75 ml/hr. Charge nurse is aware and informed. Order carried out.
[2022-01-22] MEDS: IV PREMIX D5 1/2NS + KCL 1,000 ML IV SCH (23:42)
[2022-01-23] VITALS: BP 131/75
[2022-01-23] MEDS: CEFEPIME 1 GM in IV D5W 50 ML IV SCH ×2 (00:28→11:38)
--- NOTE | 2022-01-23 01:39 | NUR ---
RN notes Wound care provided as ordered. Pt tolerated activity well.
[2022-01-23] MEDS: ALBUTEROL FS 2.5 MG/0.5 ML VIAL.NEB NEB SCH ×4 (02:16→20:32)
[2022-01-23 04:00] VITALS: BP 115/63
[2022-01-23 06:30] LABS: BASOPHILS # (AUTO) 0.1 K/uL (0.0-0.2); BASOPHILS % (AUTO) 0.6 % (0.0-2.0); EOSINOPHILS % (AUTO) 0.8 % (0.0-6.0); HEMATOCRIT 29 % (39-51); HEMOGLOBIN 9.1 g/dL (13.5-17.5); LYMPHOCYTES # (AUTO) 1.5 K/uL (0.8-4.8); MEAN CORPUSCULAR HGB CONC 32 g/dl (31.0-36.0); MEAN CORPUSCULAR VOLUME 81 fL (80-96); MONOCYTES # (AUTO) 0.5 K/uL (0.1-1.30); MONOCYTES % (AUTO) 4.9 % (2.0-12.0); NEUTROPHILS # (AUTO) 7.7 K/uL (1.8-8.9); NEUTROPHILS % (AUTO) 78.7 % (43.0-81.0); PLATELET COUNT (AUTO) 426 K/uL (150-450); RED BLOOD CELL COUNT(AUTO) 3.58 MIL/uL (4.5-6.0); WHITE BLOOD COUNT (AUTO) 9.7 K/uL (4.3-11.0)
--- NOTE | 2022-01-23 06:40 | NUR ---
RN closing notes Pt is resting in bed comfortably. Pt is obtunded, non verbal and able to open eyes. On cool aerosol. No SOB. No S/S of distress noted. Tele monitor showed SR Hr at 62. ARYAN midline is clean, intact and infusing well D51/2ns with 20 meq @ 75 ml/hr. abd dressing (peg) is clean, intact and dry. Kept Pt clean, dry and comfortable. Safety precautions is maintained. Bed at low position, brakes locked, side rails upX3, hob elevated, bed alarm is on and call light is within reach. Will continue to monitor.
[2022-01-23 07:48] LABS: CALCIUM, SERUM 8.2 mg/dL (8.5-10.1); CREATININE 0.8 mg/dL (0.6-1.3); POTASSIUM 3.6 mmol/L (3.5-5.1)
[2022-01-23 08:00] VITALS: BP 104/66
[2022-01-23] MEDS ORDERED: VITAL AF 1.2 1,000 ML BOTTLE GT PRN (08:30)
[2022-01-23] MEDS: VANCOMYCIN 1.25 GM in IV D5W 250 ML IV SCH (08:32)
[2022-01-23] MEDS: THERAHONEY GEL 1.5 OZ TUBE TP SCH (08:32)
[2022-01-23] MEDS: PANTOPRAZOLE 40 MG VIAL IV SCH (08:32)
--- NOTE | 2022-01-23 11:00 | NUR ---
RN NOTE TUBE FEEDING INITIATED ORDERED, STARTED AT 30CC/HR.
[2022-01-23 12:00] VITALS: BP 105/55
[2022-01-23] MEDS: IV PREMIX D5 1/2NS + KCL 1,000 ML IV SCH (12:10)
[2022-01-23] MEDS: MICAFUNGIN SODIUM 100 MG in IV NS 0.9% 100 ML IV SCH (14:11)
--- NOTE | 2022-01-23 15:00 | NUR ---
RN NOTE NO RESIDUAL FROM TUBE FEEDING, INCREASED TO 35CC/HR.
[2022-01-23 16:00] VITALS: BP 109/56
--- NOTE | 2022-01-23 16:41 | NUR ---
RN NOTE NO RESIDUAL, TUBE FEEDING INCREASED TO 40CC/HR.
[2022-01-23 20:00] VITALS: BP 107/80
--- NOTE | 2022-01-23 22:12 | NUR ---
dyer helper Opening Note Pt received in bed, obtunded, non-verbal, opens eyes. Has T-piece, portex #7, FiO2 28% at 5L cool aerosol; pt noted to be tachypneic, but no other s/s of resp distress, no SOB, non-labored and equal breathing. Pt attached to external monitor, SR with HR 60. Villaseñor intact and patent, draining yellow and cloudy urine. Pt noted to have GT with Vital 1.2 running at 40 ml/hr; has 100 ml residual, will not be increasing feeding rate at this time. ARYAN midline intact and patent; has D5 1/2 NS and KCl running at 75 ml/hr. Pt noted to have temp of 101.3; blankets removed and ice packs applied; will continue to monitor. Bed in lowest position, call light within reach, side rails up x3. Will continue to monitor throughout the night.
--- NOTE | 2022-01-23 22:19 | NUR ---
RN Note Pt's temperature decreased from 101.3 to 99.4. Will closely monitor temp.
[2022-01-24] VITALS: BP 137/69
[2022-01-24] MEDS: CEFEPIME 1 GM in IV D5W 50 ML IV SCH ×2 (00:03→12:02)
--- NOTE | 2022-01-24 00:18 | NUR ---
RN Note Pt continues to have 10 ml residual from GT; will not be increasing feeding rate at this time. Addendum: 01/24/22 at 0018 by PRINCESS SUSANA DIAZ 100 ml residual
[2022-01-24] MEDS: ALBUTEROL FS 2.5 MG/0.5 ML VIAL.NEB NEB SCH ×2 (01:57→08:52)
[2022-01-24] MEDS: IV PREMIX D5 1/2NS + KCL 1,000 ML IV SCH (02:05)
[2022-01-24 04:00] VITALS: BP 131/77
--- NOTE | 2022-01-24 04:04 | NUR ---
RN Note No residual noted from GT; GTF rate increased to 50 ml/hr.
--- NOTE | 2022-01-24 06:26 | NUR ---
bsw Closing Note Pt remains in bed, obtunded, non-verbal, opens eyes. Has T-piece with no changes to settings; pt's tachypnea has resolved and showed no s/s of resp distress, no SOB, non-labored and equal breathing. O2sat ranged from 92%-96% throughout the night. Pt noted to have secretions; pt suctioned appropriately. Pt attached to external monitor, SR with HR ranging from 67-91 during the night. Villaseñor intact and patent, draining yellow and cloudy urine. GT intact and patent with Vital 1.2 now running at 50 ml/hr. ARYAN midline intact and patent; has D5 1/2 NS and KCl running at 75 ml/hr. Pt's temp has gone down to normal. All due meds and fluids administered during the night. Bed in lowest position, call light within reach, side rails up x3. Will endorse to dayshift nurse to continue care.
[2022-01-24 06:55] LABS: CALCIUM, SERUM 7.7 mg/dL (8.5-10.1); CREATININE 0.9 mg/dL (0.6-1.3)
[2022-01-24 06:57] LABS: BASOPHILS % (AUTO) 0.2 % (0.0-2.0); EOSINOPHILS % (AUTO) 0.5 % (0.0-6.0); HEMATOCRIT 26 % (39-51); HEMOGLOBIN 8.1 g/dL (13.5-17.5); LYMPHOCYTES # (AUTO) 2.4 K/uL (0.8-4.8); LYMPHOCYTES % (AUTO) 19.2 % (20.0-44.0); MEAN CORPUSCULAR HGB CONC 32 g/dl (31.0-36.0); MEAN CORPUSCULAR VOLUME 79 fL (80-96); MONOCYTES # (AUTO) 0.7 K/uL (0.1-1.30); MONOCYTES % (AUTO) 5.3 % (2.0-12.0); NEUTROPHILS # (AUTO) 9.4 K/uL (1.8-8.9); NEUTROPHILS % (AUTO) 74.8 % (43.0-81.0); PLATELET COUNT (AUTO) 487 K/uL (150-450); RED BLOOD CELL COUNT(AUTO) 3.23 MIL/uL (4.5-6.0); WHITE BLOOD COUNT (AUTO) 12.5 K/uL (4.3-11.0)
--- NOTE | 2022-01-24 07:25 | NUR ---
RN CLOSING NOTES: RECEIVED PATIENT IN BED, AWAKE, OBTUNDED, NON-VERBAL. ON T-PIECE AT 5L/MIN WITH COLD AEROSOL. O2 SAT 100%. NO FACIAL GRMACING NOTED. NO SIGNS OF ANY ACUTE DISTRESS NOTED AT THE TIME. IV ACCESS ON ARYAN MIDLINE INTACT AND PATENT INFUSING D5 1/2 NS + KCL AT 75CC/HR. ON GT FEEDING RUNNING VITAL 1.2 AT 50 CC/HR. ALL SAFETY MEASURES IN PLACE. SIDE RAILS UP X3, BED IN LOWEST POSITION AND LOCKED. PLACE CALL LIGHT WITH IN REACH. WILL CONTINUE TO MONITOR AND REASSESS FOR ANY CHANGES DURING SHIFT. Addendum: 01/24/22 at 0755 by SYED OLMEDO RN RN OPENING NOTES
[2022-01-24 08:00] VITALS: BP 133/59
[2022-01-24 08:11] LABS: POTASSIUM 3.1 mmol/L (3.5-5.1)
[2022-01-24] MEDS: VANCOMYCIN 1.25 GM in IV D5W 250 ML IV SCH (08:20)
[2022-01-24] MEDS: THERAHONEY GEL 1.5 OZ TUBE TP SCH (08:21)
[2022-01-24] MEDS ORDERED: PANTOPRAZOLE 40 MG/PACK PACK GT SCH (09:00)
[2022-01-24] MEDS ORDERED: POTASSIUM CHLORIDE 20 MEQ TAB.PRT.SR PO ONE (10:00)
[2022-01-24] MEDS ORDERED: VANC1.2526 IV (10:04)
[2022-01-24] MEDS ORDERED: CEFE1FRO IV (10:04)
[2022-01-24] MEDS ORDERED: MICA100V IV (10:04)
--- NOTE | 2022-01-24 11:33 | NUR ---
RN NOTE REPORT GIVEN TO REHANA DIAZ AT [facility].
[2022-01-24 12:00] VITALS: BP 139/73
--- NOTE | 2022-01-24 12:56 | NUR ---
RN NOTE PATIENT DISCHARGED IN STABLE CONDITION. PATIENT ON T-PIECE O2 AT 5LPM, TOLERATING WELL. BREATHING EVEN AND UNLABORED. NO SIGNS OF RESPIRATORY DISTRESS NOTED AT THE TIME. IV ACCESS ON ARYAN MIDLINE. PADILLA CATH INTACT AND PATENT. DISCUSSED WITH REHANA DIAZ AT [facility], WILL LEAVE IV ACCESS AND PADILLA CATH IN PLACE. ALL DUE MEDS GIVEN ORDERED. KEPT PATIENT CLEAN DRY AND COMFORTABLE. ALL NEEDS ANTICIPATED. PATIENT HAS NO BELONGINGS. DISCHARGE INSTRUCTIONS PACKAGE GIVEN TO EMT CREW MEMEBER. PATIENT LEFT UNIT WITH 2 EMT CREW VIA VICTOR M IN STABLE CONDITION.
== END 2022-01-24 14:20 | DRG 951 ==
LOC: ER 10:15 → TELE1 15:15
PROVIDERS: ADMIT Internal Medicine; ATTEND Internal Medicine
PROC: 30233N1 Transfusion of Nonautologous Red Blood Cells into Peripheral Vein, Percutaneous Approach (ICD-10-PCS; 2022-01-17)
PROC: 0KBP0ZZ Excision of Left Hip Muscle, Open Approach (ICD-10-PCS; principal; 2022-01-19)
PROC: 0KBN0ZZ Excision of Right Hip Muscle, Open Approach (ICD-10-PCS; 2022-01-19)
PROC: 05HC33Z Insertion of Infusion Device into Left Basilic Vein, Percutaneous Approach (ICD-10-PCS; 2022-01-19)
PROC: 0DH63UZ Insertion of Feeding Device into Stomach, Percutaneous Approach (ICD-10-PCS; 2022-01-22)
DX: J96.21 Acute and chronic respiratory failure with hypoxia (principal); G93.41 Metabolic encephalopathy; E43 Unspecified severe protein-calorie malnutrition; L89.154 Pressure ulcer of sacral region, stage 4; L89.114 Pressure ulcer of right upper back, stage 4; D68.59 Other primary thrombophilia; L89.516 Pressure-induced deep tissue damage of right ankle; E87.0 Hyperosmolality and hypernatremia; R78.81 Bacteremia; Z93.0 Tracheostomy status; Z99.11 Dependence on respirator [ventilator] status; E88.09 Other disorders of plasma-protein metabolism, not elsewhere classified; D62 Acute posthemorrhagic anemia; D63.8 Anemia in other chronic diseases classified elsewhere; R62.7 Adult failure to thrive; I10 Essential (primary) hypertension; Z68.25 Body mass index [BMI] 25.0-25.9, adult; N39.0 Urinary tract infection, site not specified; K29.70 Gastritis, unspecified, without bleeding; R13.10 Dysphagia, unspecified; Z93.1 Gastrostomy status; Z86.73 Personal history of transient ischemic attack (TIA), and cerebral infarction without residual deficits; M19.90 Unspecified osteoarthritis, unspecified site; Z79.01 Long term (current) use of anticoagulants; Z79.51 Long term (current) use of inhaled steroids; Z79.899 Other long term (current) drug therapy; Z74.09 Other reduced mobility; L89.520 Pressure ulcer of left ankle, unstageable; M62.562 Muscle wasting and atrophy, not elsewhere classified, left lower leg; M62.561 Muscle wasting and atrophy, not elsewhere classified, right lower leg; E87.6 Hypokalemia; J18.9 Pneumonia, unspecified organism; J98.11 Atelectasis; B95.2 Enterococcus as the cause of diseases classified elsewhere; B96.89 Other specified bacterial agents as the cause of diseases classified elsewhere; B37.9 Candidiasis, unspecified; B96.20 Unspecified Escherichia coli [E. coli] as the cause of diseases classified elsewhere
CPT/HCPCS: 31720; 36410; 36415; 43246; 71045-TC; 71250-TC; 80048-TC; 80076-TC; 80202-TC; 81001; 82962-TC; 83605-TC; 83735-TC; 83880; 84100-TC; 84484-TC; 85025-TC; 85610-TC; 85730-TC; 86850-TC; 87040-TC; 87070-TC; 87081-TC; 87086-TC; 87186-TC; 92526; 92611-TC; 94640-TC; 94664-TC; 94762-TC; 94799-TC; A4349; A4623; A6253; A6403; A7526; C9113; C9803; G0378; J0690; J0692; J2248; J2543; J2704; J3370; J3480; J3490; J7030; J7042; J7050; J7060; P9016

== ENCOUNTER 2022-05-17 19:55 | Inpatient (IN) | payer OTHER ==
[~2022-05-17] VITALS: Ht 172.7 cm; Wt 75.7 kg
[~2022-05-17 19:55] MED LIST changes: +CEFE1FRO IV; +MICA100V IV; -PIPE3.379 IV; +VANC1.2526 IV
--- NOTE | 2022-05-17 20:39 | NUR ---
Note dl in EDM - 05/18/22 at 0005 by SHELLY BIBPA FROM SNF C/O ABNORMAL LABS. PT NONVERBAL. T-PIECE TOLERATING WELL ON R/A. GTUBE INTACT. F/C INSERTED FIELD REPORTER. SAFETY MEASURES IN PLACE. CONNECTED PT TO POX AND MONITOR.
--- NOTE | 2022-05-17 20:39 | NUR ---
Note dl in EDM - 05/18/22 at 0713 by SHELLY BIBPA FROM [facility] C/O ABNORMAL LABS. PT NONVERBAL. T-PIECE TOLERATING WELL ON R/A. GTUBE INTACT. F/C INSERTED REAL ESTATE CLOSER. SAFETY MEASURES IN PLACE. CONNECTED PT TO POX AND MONITOR.
--- NOTE | 2022-05-17 20:39 | NUR ---
BIBPA FROM [facility] C/O ABNORMAL LABS. PT NONVERBAL. T-PIECE @ 6LPM SATTING AT 96%. GTUBE INTACT. 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 SAFETY MEASURES IN PLACE. CONNECTED PT TO POX AND MONITOR.
--- NOTE | 2022-05-17 20:59 | NUR ---
GARETTID COLLECTED SENT TO LAB
--- NOTE | 2022-05-17 20:59 | NUR ---
LAB AT BEDSIDE
--- NOTE | 2022-05-17 20:59 | NUR ---
URINE COLLECTED SENT TO LAB
[2022-05-17 21:53] LABS: CREATININE 1.1 mg/dL (0.6-1.3); POTASSIUM 3.8 mmol/L (3.5-5.1)
[2022-05-17 21:58] LABS: HEMATOCRIT 22 % (39-51); MONOCYTES # (AUTO) 1.3 K/uL (0.1-1.30); RED BLOOD CELL COUNT(AUTO) 2.75 MIL/uL (4.5-6.0)
[2022-05-17 21:59] LABS: BILIRUBIN,DIRECT 0.1 mg/dL (0.0-0.2); BILIRUBIN,TOTAL 0.4 mg/dL (0.2-1.0); TOTAL PROTEIN, SERUM 10.4 g/dL (6.4-8.2)
[2022-05-17] MEDS ORDERED: IV NS 0.9% 1,000 ML BAG IV ONE (22:00)
[2022-05-17 22:01] LABS: BASOPHILS % (AUTO) 0.3 % (0.0-2.0); EOSINOPHILS % (AUTO) 0.3 % (0.0-6.0); LYMPHOCYTES # (AUTO) 2.7 K/uL (0.8-4.8); LYMPHOCYTES % (AUTO) 14.5 % (20.0-44.0); MEAN CORPUSCULAR HGB CONC 31 g/dl (31.0-36.0); MEAN CORPUSCULAR VOLUME 81 fL (80-96); MONOCYTES % (AUTO) 7.1 % (2.0-12.0); NEUTROPHILS # (AUTO) 14.2 K/uL (1.8-8.9); NEUTROPHILS % (AUTO) 77.8 % (43.0-81.0); PLATELET COUNT (AUTO) 659 K/uL (150-450); WHITE BLOOD COUNT (AUTO) 18.3 K/uL (4.3-11.0)
[2022-05-17 22:04] LABS: ALBUMIN 1.2 g/dL (3.4-5.0)
--- NOTE | 2022-05-17 22:05 | NUR ---
RECEIVED A CALL FROM LAB ([facility]) PT HAS CRITICAL RESULT : ALBUMIN 1.2. DR MILLER MADE AWARE
--- NOTE | 2022-05-17 22:18 | NUR ---
LFA #18G S/L PATENT AND INTACT
[2022-05-17 22:24] LABS: HEMOGLOBIN 6.9 g/dL (13.5-17.5)
[2022-05-17 22:24] LABS: OCCULT BLOOD STOOL NEGATIVE (NEGATIVE)
--- NOTE | 2022-05-17 22:28 | NUR ---
CRITICAL LAB HGB 6.[address] PAUL RAMSAY AWARE
[2022-05-17] MEDS ORDERED: PIPERACILLIN /TAZOBACTAM 3.375 G in IV D5W 50 ML IV ONE (22:30)
[2022-05-17 22:51] LABS: BAND % (MANUAL) 3 % (0.0-5.0); EOSINOPHILS % (MANUAL) 1 % (0-4); LYMPHOCYTES % (MANUAL) 16 % (16-48); MONOCYTES % (MANUAL) 5 % (0-11.0); NEUTROPHILS % (MANUAL) 75 (42-76)
--- NOTE | 2022-05-17 23:09 | NUR ---
Note dl in EDM - 05/18/22 at 0006 by SHELLY BIBPA FROM SNF C/O ABNORMAL LABS. PT NONVERBAL. TOLERATING T-PIECE 6LPM WELL AT 100%. GTUBE INTACT. F/C INSERTED [employer]ORE [employer] OFFICER. SAFETY MEASURES IN PLACE. CONNECTED PT TO POX AND MONITOR.
[2022-05-17] MEDS ORDERED: PIPERACILLIN /TAZOBACTAM 3.375 G VIAL IV ONE (23:18)
[2022-05-17] MEDS ORDERED: VANCOMYCIN 1 GM in IV D5W 250 ML IV ONE (23:30)
--- NOTE | 2022-05-17 23:30 | NUR ---
RT PT'S BEDSIDE FOR SUCTION
--- NOTE | 2022-05-17 23:30 | NUR ---
URINE COLLECTED AND SENT TO LAB
[2022-05-17] MEDS ORDERED: VANCOMYCIN 1 GM VIAL ONE (23:57)
[2022-05-18] MEDS ORDERED: PANTOPRAZOLE 40 MG VIAL IV ONE (00:30)
[2022-05-18 00:52] LABS: BILIRUBIN,URINE NEGATIVE (NEGATIVE); COLOR,URINE YELLOW (YELLOW); LEUKOCYTE ESTERASE ,URINE LARGE (NEGATIVE); NITRITE, URINE NEGATIVE (NEGATIVE); PH,URINE 7.5 (5.0-8.0); PROTEIN,URINE 100 mg/dl (NEGATIVE); UGLUCOSE NEGATIVE (NEGATIVE); UROBILINOGEN,URINE 0.2 EU/dL (0.2)
[2022-05-18] MEDS ORDERED: PANTOPRAZOLE 40 MG VIAL ONE (00:57)
--- NOTE | 2022-05-18 01:01 | NUR ---
-RECEIVED A CALL FROM [facility]. DR MILLER TO CALL DR WALKER AT FOR PEER TO PEER ENDORSEMENT. -AFTER THE CALL, DIAL TO INFORM CM THAT PEER TO PEER HAS BEEN DONE. -FAX FACESHEET AND ED NOTES TO [facility]
--- NOTE | 2022-05-18 01:34 | NUR ---
PT TAKEN TO CT VIA VICTOR M
--- NOTE | 2022-05-18 01:48 | NUR ---
PT RETURNED TO ER BED [address]
--- NOTE | 2022-05-18 01:57 | NUR ---
RT AT PT'S BEDSIDE FOR SUCTION & CHANGE TUBING FOR T-PIECE
--- NOTE | 2022-05-18 03:00 | NUR ---
RBC BLOOD TRANSFUSION X1 UNIT OBTAINED VERBAL CONSENT FROM PT'S BROTHER NICK LERNER VIA PHONE [phone] INIATED RBC BLOOD TRANSFUSION WITNESS BY 2 RNs. LFA #18G @70ML/HR. VSS. BP 99/ 60, HR 86, SATTING 95% T-PIECE @10LPM, T 98.5, RR 21 WILL MONITOR FOR A/R
[2022-05-18] MEDS ORDERED: CEFEPIME 1 GM in IV D5W 50 ML IV SCH (03:30)
[2022-05-18] MEDS ORDERED: Z GUARD REMEDY 4 OZ OINT TP PRN (03:30)
[2022-05-18] MEDS ORDERED: MAGNESIUM HYDROXIDE 30 ML UDC PO PRN (03:30)
[2022-05-18] MEDS ORDERED: ONDANSETRON HCL/PF 4 MG/2 ML VIAL IVP PRN (03:30)
[2022-05-18] MEDS ORDERED: MAG HYDROX/AL HYDROX/SIMETH 30 ML UDC PO PRN (03:30)
--- NOTE | 2022-05-18 05:00 | NUR ---
RBC BLOOD TRANSFUSION X1 COMPLETED PT TOLERATED BLOOD TRANSFUSION WELL. VSS. NO A/R NOTED.
--- NOTE | 2022-05-18 05:30 | NUR ---
PER BLOOD TRANSFUSION PROTOCOL, IGNITION EXPERT WILL DRAW BLOOD 2 HOURS AFTER BLOOD TRASFUSION COMPLETION APPROXIMATELY 0700
--- NOTE | 2022-05-18 06:18 | NUR ---
SPUTUM RESPIRATORY CULTURE COLLECTED VIA T-PIECE SUCTION AND SENT TO LAB
[2022-05-18 06:27] LABS: BACTERIA,URINE 2+ /HPF (None Seen); RBC,URINE NONE SEEN /HPF (0-2); SQUAMOUS EPITHELIAL CELL,UR None Seen /HPF (None Seen); WBC,URINE TOO NUMEROUS TO COUN /HPF (0-3)
--- NOTE | 2022-05-18 06:38 | NUR ---
ULTRASOUND GUIDED THORACENTESIS OF LEFT LUNG CONSENT: OBTAINED VERBAL CONSENT FROM PT'S BROTHER DONAVANHELLEN MARSHALL LERNER VIA PHONE [phone] AND WITNESSED WITH 2 RNs
--- NOTE | 2022-05-18 07:05 | NUR ---
TEXT DR. TRUJILLO FOR MRI APPROVAL
[2022-05-18 07:07] LABS: BILIRUBIN,URINE NEGATIVE (NEGATIVE); COLOR,URINE YELLOW (YELLOW); LEUKOCYTE ESTERASE ,URINE LARGE (NEGATIVE); NITRITE, URINE NEGATIVE (NEGATIVE); PROTEIN,URINE 100 mg/dl (NEGATIVE); UGLUCOSE NEGATIVE (NEGATIVE)
--- NOTE | 2022-05-18 07:13 | NUR ---
KILN BURNER HELPER CLOSING NOTE PT NONVERBAL. T-PIECE @ 10LPM SATTING AT 95%. GTUBE INTACT. F/C INTACT AND DRAINING URINE WELL. IV LFA #18G S/L; PATENT AND INTACT. CONNECTED PT TO POX AND MONITOR. SAFETY MEASURES IN PLACE. ENDORSED PT TO CATIA DIAZ FOR SANDIP.
[2022-05-18 07:36] LABS: RBC,URINE NONE SEEN /HPF (0-2); WBC,URINE TOO NUMEROUS TO COUN /HPF (0-3)
[2022-05-18 07:37] LABS: BACTERIA,URINE None seen /HPF (None Seen); SQUAMOUS EPITHELIAL CELL,UR None Seen /HPF (None Seen)
--- NOTE | 2022-05-18 07:56 | NUR ---
bed assigned 111.2
[2022-05-18 08:00] VITALS: BP 103/59
[2022-05-18 08:15] LABS: BASOPHILS % (AUTO) 0.2 % (0.0-2.0); EOSINOPHILS % (AUTO) 0.2 % (0.0-6.0); HEMATOCRIT 22 % (39-51); LYMPHOCYTES # (AUTO) 2.6 K/uL (0.8-4.8); LYMPHOCYTES % (AUTO) 14.7 % (20.0-44.0); MEAN CORPUSCULAR HGB CONC 31 g/dl (31.0-36.0); MEAN CORPUSCULAR VOLUME 83 fL (80-96); MONOCYTES # (AUTO) 1.3 K/uL (0.1-1.30); MONOCYTES % (AUTO) 7.2 % (2.0-12.0); NEUTROPHILS # (AUTO) 13.8 K/uL (1.8-8.9); NEUTROPHILS % (AUTO) 77.7 % (43.0-81.0); PLATELET COUNT (AUTO) 578 K/uL (150-450); RED BLOOD CELL COUNT(AUTO) 2.69 MIL/uL (4.5-6.0); WHITE BLOOD COUNT (AUTO) 17.7 K/uL (4.3-11.0)
[2022-05-18 08:22] LABS: HEMOGLOBIN 6.9 g/dL (13.5-17.5)
[2022-05-18] MEDS ORDERED: TRAM50TA2 GT (08:24)
[2022-05-18] MEDS ORDERED: ALBU6.7H9 IH (08:24)
[2022-05-18] MEDS ORDERED: NA P133E RC (08:24)
[2022-05-18] MEDS ORDERED: CHLO473M3 MM (08:24)
[2022-05-18] MEDS ORDERED: FERR325T23 GT (08:24)
[2022-05-18] MEDS ORDERED: EPOE1000 IJ (08:24)
[2022-05-18] MEDS ORDERED: MAGN400O6 GT (08:24)
[2022-05-18] MEDS ORDERED: LACT250L14 GT (08:24)
[2022-05-18] MEDS ORDERED: DOCU-141 GT (08:25)
[2022-05-18 08:33] LABS: BILIRUBIN,TOTAL 0.5 mg/dL (0.2-1.0); CALCIUM, SERUM 9.6 mg/dL (8.5-10.1); CREATININE 1.2 mg/dL (0.6-1.3); MAGNESIUM 2.2 mg/dL (1.8-2.4); PHOSPHORUS 3.8 mg/dL (2.5-4.9); POTASSIUM 3.8 mmol/L (3.5-5.1); TOTAL PROTEIN, SERUM 9.7 g/dL (6.4-8.2)
[2022-05-18 08:42] LABS: ALBUMIN 1.1 g/dL (3.4-5.0)
[2022-05-18 08:44] LABS: THYROID STIMULATING HORMONE 1.708 uIU/mL (0.358-3.74)
--- NOTE | 2022-05-18 08:48 | NUR ---
PT TRANSFERRED TO [facility] VIA RERIE. WARM HANDOFF GIVEN TO RN ASSIGNED
--- NOTE | 2022-05-18 08:48 | NUR ---
RECEIVED PATIENT FROM ER VIA GURNEY. PATIENT IS NON VERNAL, OBTUNDED, ON OXYGEN VIA TRACH ON 10L/MIN. NO RESPIRATORY DISTRESS NOTED. HOOKED UP ON TELE MONITOR AND SHOWS SR WITH HR OF 96 ON TELE MONITOR. IV ACCESS ON LEFT FOREARM # 18, PATENT, FLUSHES WELL, NO S/S INFILTRATION NOTED. BODY CHECK DONE AND PLEASE SEE PHOTOS FOR DOCUMENTATION. G-TUBE IN PLACE, NO RESIDUAL NOTED, FLUSHES WELL. PADILLA CATHETER INTACT, DRAINING WITH CLOUDY YELLOW COLORED URINE, NO HEMATURIA NOTED. HOB KEPT ELEVATED AND REPOSITIONED FOR COMFORT. CALL LIGHT WITHIN REACH. BED LOCKED AND IN LOWEST POSITION. WILL CONTINUE TO MONITOR PATIENT THROUGHOUT SHIFT.
--- NOTE | 2022-05-18 08:48 | NUR ---
V/S NOTED FOLLOWS: BP 103/59, PULSE 96, RR 18, TEMP 102.6. CODLING MEASURES PROVIDED AND WILL GIVE MED ORDERED.
[2022-05-18] MEDS: CEFEPIME 2 GM in IV D5W 100 ML IV SCH ×2 (08:50→16:23)
[2022-05-18] MEDS: PANTOPRAZOLE 40 MG VIAL IV SCH ×2 (08:50→16:23)
[2022-05-18] MEDS: ACETAMINOPHEN 325 MG TABLET PO PRN ×3 (08:51→23:42)
--- NOTE | 2022-05-18 09:02 | NUR ---
SPOKE TO CHARGE NURSE SOON @ EXT. [phone] @ 9:00AM, NO CONSENT SIGNED YET FOR US GUIDED THORACENTESIS. SPOKE TO ON-CALL RAD DR. STEWART AND HE SAID TO PERFORM PROCEDURE ON FRIDAY SINCE IT IS ROUTINE. CALLED BACK AND SPOKE TO GHISLAINE TO GIVE SOON MESSAGE THAT PROCEDURE WILL BE DONE ON FRIDAY.
[2022-05-18] MEDS: IV D5/0.45 NACL 1,000 ML IV PRN (09:10)
--- NOTE | 2022-05-18 10:00 | NUR ---
PATIENT'S TEMP IS 100.2, WILL CONTINUE TO MONITOR PATIENT'S TEMP
[2022-05-18 12:00] VITALS: BP 87/48
--- NOTE | 2022-05-18 12:30 | NUR ---
PLACED A CALL TO PATIENT'S BROTHER MARSHALL TO GIVE CONSENT FOR MRI OF ABDOMEN WITH CONTRAST @ , NO ANSWER, UNABLE TO LEAVE A MESSAGE DUE TO MAILBOX IS FULL. ALSO CALLED HIM @ HIS OTHER NUMBER , NO ANSWER, VOICE MAILBOX IS NOT SET UP YET.
[2022-05-18] MEDS: VANCOMYCIN 1.25 GM in IV D5W 250 ML IV SCH ×2 (13:12→23:42)
[2022-05-18 16:00] VITALS: BP 99/57
--- NOTE | 2022-05-18 18:15 | NUR ---
RECHECKED PATENT'S TEMP AND IT WAS 98.7
[2022-05-18] MEDS ORDERED: JEVITY 1.2 CAL 1,000 ML BOTTLE GT PRN (18:30)
--- NOTE | 2022-05-18 18:37 | NUR ---
INFORMED DR. SHAH OF PATIENT'S HGB OF 6.9 AND HCT OF 22 AND THAT THE PATIENT'S BEEN HAVING INTERMITTENT FEVER SINCE ADMISSION WITH NO FURTHER ORDERS AT THIS TIME
--- NOTE | 2022-05-18 18:42 | NUR ---
ENGINEERING ASSOCIATE CLOSING NOTES: PATIENT IN BED, OBTUNDED, ON T-PIECE ATTACHED TO OXYGEN @ 10 L/MIN. NO RESPIRATORY DISTRESS NOTED. ON SR HR OF 90 ON TELE MONITOR. D51/2 NS @ 50 ML/HR INFUSING @ LEFT FOREARM, NO S/S INFILTRATION NOTED. G-TUBE IN PLACE, INTACT, NO RESIDUAL NOTED. HOB KEPT ELEVATED. BED LOCKED AND IN LOWEST POSITION. CALL LIGHT WITHIN REACH. WILL ENDORSE TO NEXT SHIFT NURSE FOR CONTINUITY OF CARE.
--- NOTE | 2022-05-18 19:15 | NUR ---
RN NOTE Patient in bed, obtunded, fin no acute distress, on T-piece to cool aerosol at FIO2 40%, saturation at 99%, SR on the monitor HR is 84. IV line at LFA 18g patent and flushing well with D5 1/2 NS infusing at 50 ml/hr, Gtube in place, clamped to start tube feeding of with Jevity with a goal of 50 ml/hr. Villaseñor catheter draining to a clear, yellow output. Safety measures in place, will continue to monitor and reassess.
[2022-05-18 20:00] VITALS: BP 110/63
[2022-05-19] VITALS (9 sets, daily range): BP systolic 79–106; BP diastolic 51–62
[2022-05-19] MEDS: CEFEPIME 2 GM in IV D5W 100 ML IV SCH ×3 (01:06→16:25)
[2022-05-19 06:05] LABS: BASOPHILS # (AUTO) 0.1 K/uL (0.0-0.2); BASOPHILS % (AUTO) 0.4 % (0.0-2.0); EOSINOPHILS % (AUTO) 0.2 % (0.0-6.0); HEMATOCRIT 23 % (39-51); HEMOGLOBIN 7.2 g/dL (13.5-17.5); LYMPHOCYTES # (AUTO) 2.6 K/uL (0.8-4.8); LYMPHOCYTES % (AUTO) 15.7 % (20.0-44.0); MEAN CORPUSCULAR HGB CONC 32 g/dl (31.0-36.0); MEAN CORPUSCULAR VOLUME 83 fL (80-96); MONOCYTES # (AUTO) 1.6 K/uL (0.1-1.30); MONOCYTES % (AUTO) 9.4 % (2.0-12.0); NEUTROPHILS # (AUTO) 12.4 K/uL (1.8-8.9); NEUTROPHILS % (AUTO) 74.3 % (43.0-81.0); PLATELET COUNT (AUTO) 576 K/uL (150-450); RED BLOOD CELL COUNT(AUTO) 2.73 MIL/uL (4.5-6.0); WHITE BLOOD COUNT (AUTO) 16.7 K/uL (4.3-11.0)
[2022-05-19 06:39] LABS: CALCIUM, SERUM 9.4 mg/dL (8.5-10.1); CREATININE 1.5 mg/dL (0.6-1.3); POTASSIUM 3.4 mmol/L (3.5-5.1)
--- NOTE | 2022-05-19 07:30 | NUR ---
RN PERIOPERATIVE AM NOTES PATIENT IN BED, OBTUNDED, NONVERBAL, WITH PORTEX 7 TRACH ON COOL AEROSOL FIO2 40%, O2 SAT 91%. RESPIRATION UNLABORED. NO DISTRESS, ST HR 104, NO SIGNS OF DISCOMFORT. NO GRIMACINGS, LFA G18 IV ACCESS WITHD5 1/2 NS AT 50 ML/HR INFUSING WELL, SITE CLEAR. WITH G TUBE, CHECKED FOR PLACEMENT 10ML RESIDUAL, GTF JEVITY 1.2 ONGOING AT 50 ML/HR. PADILLA CATH IN PLACE, INTACT PATENT, DRAINING YELLOW COLORED URINE, ADEQUATE AMOUNT. SEE NURSING FLOWSHEET FOR SK IN ISSUES. SAFETY MEASURES IN PLACE. BED LOW LOCKED. CALL LIGHT WITHIN REACH. WILL CONTINUE TO MONITOR.
--- NOTE | 2022-05-19 09:30 | NUR ---
RN NOTES DUE MEDS GIVEN
[2022-05-19] MEDS: PANTOPRAZOLE 40 MG VIAL IV SCH ×2 (09:44→16:26)
[2022-05-19] MEDS ORDERED: POTASSIUM CHLORIDE 20 MEQ POWDER PACKET NG SCH (10:30)
[2022-05-19] MEDS: ACETAMINOPHEN 325 MG TABLET PO PRN ×3 (11:54→20:37)
--- NOTE | 2022-05-19 11:54 | NUR ---
RN NOTES TEMPERATURE 100.3. COOLING MEASURES APPLIED. TYLENOL GIVEN
--- NOTE | 2022-05-19 12:22 | NUR ---
RN NOTES TEMPERATURE RE CHECKED 99.5
[2022-05-19 14:33] LABS: ABG BASE EXCESS -6.5 mmol/L; ABG OXYGEN SATURATION 61.2 % (92.0-98.5); ABG PCO2 70.2 mmHg (35.0-45.0); ABG PH 7.129 (7.350-7.450); ABG PO2 46.3 mmHg (75.0-100.0); AaDO2 158.2 mmHg; COHb 0.8 % (0.5-1.5); MetHb 0.1 % (0.0-1.5); O2Hb 60.6 % (94.0-97.0); SITE, ABG Right Radial; VENT MODE, BG 40% COOL AEROSOL
--- NOTE | 2022-05-19 14:35 | NUR ---
RN NOTES 1410 - PT FOUND TO HAVE DAJUAN STOKE BREATHING. EARLIER PATIENT DEVELOPED FEVER TEMP 100.3. COOLING MEASURES APPLIED, TYLENOL GIVEN. RECHECKED TEMP AT 99.5 1420 - RAPID RESPONSE CALLED. PATIENT SUCTIONED. 1423 - VITAL SIGNS CHECKED. BLOOD SUGAR 207. BP 97/55,O2 SAT 61 ND 127. ABG DRAWN 1425 - DR. SHAH NOTIFIED. PT PLACED ON AMBU BAG WHILE RESP THERAPIST GETTING A VENT MACHINE 1430 - DR. ABARCA AT BEDSIDE. ORDERED FOR STAT CXE. REPSAT ABG IN AN HOUR AND FOR MECHANICAL VENT. PT TRANSFERRED TO [facility] STATUS. END OF RAPID RESPONSE. STAFF PRESENT: LENI - NURSING MANAGER QUALITY SYSTEMS, GILMA ICU CHARGE NURSE, CARY BARCENAS [facility] CHARGE NURSE. FABRICIO BARTON PRIM NURSE, ALTON ZAPIEN RESP THERAPIST, ADELINA SIDHU ICU NURSE, PRICE [facility] NURSE.
--- NOTE | 2022-05-19 14:45 | NUR ---
RN NOTES PATIENT PLACE ON MECHANICAL VENT SETTING ORDERED: AC22 TV 500 FIO2 100% PEEP 5 FOR NOW AND WILL CHANGE LATER.
--- NOTE | 2022-05-19 15:06 | NUR ---
pt. placed into mechanical vent due to increased work of breathing and 68% spo2. vent parameters below set as ordered: ac 22 vt 500 ml fio2 100% peep +5 breath sounds coarse rhonchi bilateral sxn large amnt thick rausch secretions. vent plugged into red outlet with alarms on and functioning. bvm and spare trach @ bedside. Addendum: 05/19/22 at 1509 by ALTON ZAPIEN RT Amended: Links added.
--- NOTE | 2022-05-19 15:17 | NUR ---
0 peep due to low bp 70/49. Addendum: 05/19/22 at 1518 by ALTON ZAPIEN RT Amended: Links added.
[2022-05-19] MEDS ORDERED: IV NS 0.9% 500 ML IV ONE (16:30)
[2022-05-19] MEDS: IV D5/0.45 NACL 1,000 ML IV PRN (16:38)
--- NOTE | 2022-05-19 16:40 | NUR ---
found on 40% fio2 spo2 100% no increased work of breathing noted. Addendum: 05/19/22 at 1743 by ALTON ZAPIEN RT Amended: Links added.
--- NOTE | 2022-05-19 16:40 | NUR ---
RN NOTES O2 TITRATED FROM FIO2 100% TO 40% O2 SATURATION 98%
[2022-05-19 17:59] LABS: ABG BASE EXCESS 8.8 mmol/L; ABG OXYGEN SATURATION 97.1 % (92.0-98.5); ABG PCO2 39.3 mmHg (35.0-45.0); ABG PH 7.532 (7.350-7.450); ABG PO2 85.2 mmHg (75.0-100.0); AaDO2 154.8 mmHg; COHb 1.1 % (0.5-1.5); MetHb 0.3 % (0.0-1.5); O2Hb 95.7 % (94.0-97.0); PEEP,BG 0 cm H2O; SITE, ABG Right Radial; VT, ABG 500 mL
[2022-05-19] MEDS ORDERED: VANCOMYCIN 1.25 GM in IV D5W 250 ML IV SCH (18:00)
--- NOTE | 2022-05-19 18:49 | NUR ---
DELIVERY CREW MEMBER CLOSING NOTES PATIENT IN BED, OBTUNDED, NONVERBAL, WITH PORTEX 7 TRACH TO MECHANICAL VENT WITH SETTING AC 22 TV 500 FIO2 40 % PEEP 0. O2 SAT 98%. RESPIRATION UNLABORED. NO DISTRESS, SR HR 76. NO SIGNS OF DISCOMFORT. NO GRIMACINGS, LFA G18 IV ACCESS WITHD5 1/2 NS AT 50 ML/HR INFUSING WELL, SITE CLEAR. WITH G TUBE, CHECKED FOR PLACEMENT 1HELD FOR NOW. PADILLA CATH IN PLACE, INTACT PATENT, DRAINING YELLOW COLORED URINE, 750 ML. PM CARE DONE. TURNED AND REPOSITIONED Q2 HOURS. SAFETY MEASURES IN PLACE. BED LOW LOCKED. CALL LIGHT WITHIN REACH. ALL NEEDS MET AT THIS TIME. WILL ENDORSE TO NEXT SHIFT FOR SANDIP.
--- NOTE | 2022-05-19 19:07 | NUR ---
RN OPENING NOTES RECEIVED PATIENT ON BED, OBTUNDED. PT. ON TRACH, WITH VENT SETTINGS AC-22, TV- 500, FIO2-40%, PEEP- 0, SATING AT 97%. RESPIRATORY EVEN AND UNLABORED, NO S/S OF DISTRESS NOTED. WITH LEFT FOREARM # 18 PERIPHERAL LINE, PATENT, INTACT, FLUSHED WITH NS. NO S/S OF INFILTRATION NOTED. WITH IVF OF D5 1/2 NS @ 50 ML/HR. GTUBE PATENT AND INTACT, VERIFIED PLACEMENT BY AUSCULTATION, FLUSHED WITH WATER, TUBE FEEDING CURRENTLY ON HOLD. PADILLA CATHETER PATENT INTACT DRAINING WITH CLEAR YELLOW URINE VIA GRAVITY. REPOSITION PATIENT EVERY 2 HRS. ALL SAFETY PRECAUTION PROVIDED, BED IN LOWEST POSITION, LOCKED. BED ALARM ARMED. CALL LIGHT WITH IN REACH. CONTINUE TO MONITOR.
--- NOTE | 2022-05-19 20:30 | NUR ---
RN NOTES PATIENT NOTED WITH TEMP- 101.5 DEGREE FAHRENHEIT, COOLING MEASURE PROVIDED, ACETAMINOPHEN 650MG GIVEN. CONTINUE TO MONITOR.
--- NOTE | 2022-05-19 21:30 | NUR ---
RN NOTES TEMPERATURE RECHECKED, OBTAINED 101.1 DEGREE FAHRENHEIT, CONTINUE COOLING MEASURE.
[2022-05-20] VITALS: BP 98/60
[2022-05-20] MEDS: CEFEPIME 2 GM in IV D5W 100 ML IV SCH (00:28)
--- NOTE | 2022-05-20 00:30 | NUR ---
RN NOTES PATIENT NOTED WITH TEMP- 101.6 DEGREE FAHRENHEIT, COOLING MEASURE PROVIDED, ACETAMINOPHEN 650MG GIVEN. CONTINUE TO MONITOR.
[2022-05-20] MEDS: ACETAMINOPHEN 325 MG TABLET PO PRN ×3 (00:40→21:20)
--- NOTE | 2022-05-20 01:30 | NUR ---
RN NOTES TEMPERATURE RECHECKED, OBTAINED 101.0 DEGREE FAHRENHEIT, CONTINUE COOLING MEASURE.
[2022-05-20 04:00] VITALS: BP 107/66
[2022-05-20] MEDS: VANCOMYCIN 1.25 GM in IV D5W 250 ML IV SCH (06:00)
--- NOTE | 2022-05-20 06:20 | NUR ---
RN NOTES VANCOMYCIN DOSE HELD DUE @ 0600, LATEST VANCO TROUGH- 42.
[2022-05-20 06:24] LABS: BASOPHILS # (AUTO) 0.1 K/uL (0.0-0.2); BASOPHILS % (AUTO) 0.4 % (0.0-2.0); EOSINOPHILS % (AUTO) 0.5 % (0.0-6.0); HEMATOCRIT 22 % (39-51); HEMOGLOBIN 7.1 g/dL (13.5-17.5); LYMPHOCYTES # (AUTO) 2.8 K/uL (0.8-4.8); LYMPHOCYTES % (AUTO) 19.9 % (20.0-44.0); MEAN CORPUSCULAR HGB CONC 32 g/dl (31.0-36.0); MEAN CORPUSCULAR VOLUME 83 fL (80-96); MONOCYTES # (AUTO) 1.3 K/uL (0.1-1.30); MONOCYTES % (AUTO) 9.4 % (2.0-12.0); NEUTROPHILS # (AUTO) 9.8 K/uL (1.8-8.9); NEUTROPHILS % (AUTO) 69.8 % (43.0-81.0); PLATELET COUNT (AUTO) 538 K/uL (150-450); RED BLOOD CELL COUNT(AUTO) 2.68 MIL/uL (4.5-6.0)
--- NOTE | 2022-05-20 06:46 | NUR ---
RN NOTES NO SIGNIFICANT CHANGES THROUGH OUT THE SHIFT. RESPIRATORY EVEN AND UNLABORED, NO S/S OF DISTRESS NOTED. WITH IVF OF D5 1/2 NS @ 50 ML/HR. GTUBE PATENT AND INTACT, VERIFIED PLACEMENT BY AUSCULTATION, TUBE FEEDING CURRENTLY ON HOLD. PADILLA CATHETER PATENT INTACT DRAINING WITH CLEAR YELLOW URINE VIA GRAVITY. REPOSITION PATIENT EVERY 2 HRS. ALL DUE MEDS GIVEN. WOUND CARE DONE, TOLERATED WELL. ALL SAFETY PRECAUTION PROVIDED, BED IN LOWEST POSITION, LOCKED. BED ALARM ARMED. CALL LIGHT WITH IN REACH. REPORT GIVEN TO MORNING SHIFT NURSE FOR CONTINUITY OF CARE.
[2022-05-20 06:48] LABS: BILIRUBIN,TOTAL 0.6 mg/dL (0.2-1.0); CALCIUM, SERUM 9.5 mg/dL (8.5-10.1); CREATININE 1.7 mg/dL (0.6-1.3); MAGNESIUM 2.4 mg/dL (1.8-2.4); PHOSPHORUS 3.8 mg/dL (2.5-4.9); POTASSIUM 3.6 mmol/L (3.5-5.1); TOTAL PROTEIN, SERUM 9.9 g/dL (6.4-8.2)
[2022-05-20 08:00] VITALS: BP 103/70
[2022-05-20] MEDS: PANTOPRAZOLE 40 MG VIAL IV SCH (08:16)
--- NOTE | 2022-05-20 08:53 | NUR ---
WOUND CARE CONSULT: PT RESTING AT THIS TIME. REVIEWED CHART, NURSING DOCUMENTATION AND PHOTOS WHICH INDICATE SACRAL/RT BUTTOCK FULL THICKNESS PRESSURE ULCERS, RT EAR DEEP TISSUE INJURY, RT KNEE OPEN SKIN AND LEFT ANKLE/FOOT WOUND, ALL PRESENT ON ADMISSION. DR MCKEON AND DR GARCIA CALLED FOR SURGICAL AND DPM CONSULTS. RECOMMENDATIONS MADE FOR SKIN PROTECTION. DISCUSSED WITH NURSING STAFF. MD IN AGREEMENT WITH PLAN OF CARE. Addendum: 05/20/22 at 0857 by JOCELYNE MACIEL WNDNU CORRECTION: SACRAL, RT AND LEFT BUTTOCK WOUNDS NOTED IN ADMISSION PHOTO.
[2022-05-20] MEDS ORDERED: CEFEPIME 2 GM in IV D5W 100 ML IV SCH (09:00)
[2022-05-20] MEDS: PANTOPRAZOLE 40 MG/PACK PACK GT SCH ×2 (09:40→17:14)
[2022-05-20 12:00] VITALS: BP 91/57
--- NOTE | 2022-05-20 12:00 | NUR ---
RN NOTE LEFT CHEST THORACENTESIS DONE 1100 CC RED BROWN FLUID WAS REMOVED AND SENT TO THE LAB. CONSENT FORM FOR WOUND DEBRIDEMENT FOR LEFT LOWER EXTREMITY AND MRI WITH CONTRAST WAS TAKEN BY PHONE FROM PARTH LERNER PATIENT'S BROTHER AT 1200 TODAY.
[2022-05-20] MEDS: IV D5/0.45 NACL 1,000 ML IV PRN (14:37)
[2022-05-20] MEDS: JEVITY 1.2 CAL 1,000 ML BOTTLE GT PRN (15:41)
[2022-05-20 16:00] VITALS: BP 94/56
[2022-05-20] MEDS: PROSOURCE / PROSTAT (PYXIS) 30 ML UDC GT SCH (17:05)
[2022-05-20] MEDS: DAKINS QUARTER STRENGTH (0.125%) 480 ML BOTTLE TOP SCH (17:06)
--- NOTE | 2022-05-20 19:00 | NUR ---
RN NOTES PATIENT IS SLEEPING IN BED. NO S/S OF DISTRESS OR SOB. LFT CHEST THORACENTESIS DONE TO DAY IN THE MORING 1100 CC FLUID WAS REMOVED. WITH IVF OF D5 1/2 NS @ 50 ML/HR. GTUBE PATENT AND INTACT, VERIFIED PLACEMENT BY AUSCULTATION, TUBE FEEDING JEVITY 1.2 AT 60 ML PER HOUR. PADILLA CATHETER PATENT INTACT DRAINING WITH CLEAR YELLOW URINE VIA GRAVITY. REPOSITION PATIENT EVERY 2 HRS. ALL DUE MEDS GIVEN. WOUND CARE DONE, TOLERATED WELL. ALL SAFETY PRECAUTION PROVIDED, BED IN LOWEST POSITION, LOCKED. BED ALARM ARMED. CALL LIGHT WITH IN REACH. REPORT GIVEN TO METAL CASTER NURSE FOR CONTINUITY OF CARE.
--- NOTE | 2022-05-20 19:41 | NUR ---
RN OPENING NOTES RECEIVED PATIENT IN BED, OBTUNDED. ON TRACH TO VENT SETTINGS: AC-22, TV- 500, FIO2-40%, PEEP- 0. BREATHING EVEN AND UNLABORED. IV ACCESS ON LEFT FOREARM # 18 INTACT AND PATENT.. NO S/S OF INFILTRATIONS. RUNNIN IVF D5 1/2 NS @ 50 ML/HR. GTUBE FEEDING WELL TOLERATED. ON JEVITY 1.2 AT 60CC/HR. PADILLA CATHETER IN PLACE. DRAINING BY GRAVITY. NOTED YELLOWISH/CLEAR URINE. ALL SAFETY MEASURES IN PLACE, BED IN LOWEST POSITION AND LOCKED. BED ALARM ON. PLACE CALL LIGHT WITH IN REACH. CONTINUE TO MONITOR.
[2022-05-20 20:00] VITALS: BP 90/53
[2022-05-20] MEDS ORDERED: LIDOCAINE 1%-EPI 1:100,000 20 ML VIAL TP ONE (21:00)
[2022-05-20] MEDS ORDERED: SILVER NITRATE APPLICATOR 1 EA BOX TP PRN (21:00)
--- NOTE | 2022-05-20 21:00 | NUR ---
RN NOTES: PHARMACY CALLED, THEY DON'T HAVE LIDOCAINE, ASKED TO USE SOMETHING ELSE. WILL ENDORSE TO MORNING SHIFT.
[2022-05-20] MEDS: MEROPENEM 1 G in IV NS 0.9% 100 ML IV SCH (21:20)
--- NOTE | 2022-05-20 21:38 | NUR ---
RN NOTES: NOTED PT TEMP INCREASED TO 100.1 F. TYLENOL 625 MG 2 TABS GIVEN VIA GTUBE AND COOLING MEASURES PROVIDED. WILL CONTINUE TO MONITOR
[2022-05-21] VITALS (11 sets, daily range): BP systolic 82–106; BP diastolic 52–65
[2022-05-21] MEDS: VANCOMYCIN 1.25 GM in IV D5W 250 ML IV SCH (06:00)
--- NOTE | 2022-05-21 06:39 | NUR ---
RN CLOSING NOTES PATIENT IN BED, OBTUNDED. ON TRACH TO VENT SETTINGS: AC-22, TV- 500, FIO2-40%, PEEP- 0. O2 SAT 100%. BREATHING EVEN AND UNLABORED. IV ACCESS ON LEFT FOREARM # 18 INTACT AND PATENT.. NO S/S OF INFILTRATIONS. RUNNING IVF D5 1/2 NS @ 50 ML/HR. GTUBE FEEDING ON HOLD. REMAIN NPO AFTER MIDNIGHT FOR MRI ABD WITH CONTRAST. PADILLA CATHETER IN PLACE. DRAINING BY GRAVITY. NOTED YELLOWISH URINE. ALL DUE MEDS GIVEN ORDERED. STILL AWAITING FOR THE VANCO TROUGH RESULTS TO ADMINISTER VANCOMYCIN. ALL SAFETY MEASURES IN PLACE, BED IN LOWEST POSITION AND LOCKED. BED ALARM ON. PLACE CALL LIGHT WITH IN REACH. WILL ENDORSE TO MORNING SHIFT NURSE.
[2022-05-21 07:07] LABS: BASOPHILS % (AUTO) 0.2 % (0.0-2.0); EOSINOPHILS % (AUTO) 0.9 % (0.0-6.0); HEMATOCRIT 22 % (39-51); HEMOGLOBIN 7.1 g/dL (13.5-17.5); LYMPHOCYTES # (AUTO) 1.7 K/uL (0.8-4.8); LYMPHOCYTES % (AUTO) 13.1 % (20.0-44.0); MEAN CORPUSCULAR HGB CONC 32 g/dl (31.0-36.0); MEAN CORPUSCULAR VOLUME 84 fL (80-96); NEUTROPHILS % (AUTO) 77.8 % (43.0-81.0); PLATELET COUNT (AUTO) 538 K/uL (150-450); RED BLOOD CELL COUNT(AUTO) 2.64 MIL/uL (4.5-6.0); WHITE BLOOD COUNT (AUTO) 12.9 K/uL (4.3-11.0)
[2022-05-21 07:38] LABS: BILIRUBIN,TOTAL 0.5 mg/dL (0.2-1.0); CALCIUM, SERUM 9.3 mg/dL (8.5-10.1); CREATININE 1.8 mg/dL (0.6-1.3); MAGNESIUM 2.4 mg/dL (1.8-2.4); POTASSIUM 3.3 mmol/L (3.5-5.1); TOTAL PROTEIN, SERUM 9.1 g/dL (6.4-8.2)
[2022-05-21 07:50] LABS: PHOSPHORUS 3.7 mg/dL (2.5-4.9)
[2022-05-21 07:54] LABS: ALBUMIN 0.9 g/dL (3.4-5.0)
--- NOTE | 2022-05-21 07:55 | NUR ---
RECEIVED CALL FROM THE LAB TO REPORT ALBUMIN RESULT OF 0.9, NURSE EMILY CARLISLE INFORMED.
--- NOTE | 2022-05-21 08:17 | NUR ---
RN NOTE VANCOMYCIN 0600 AM IV HELD. VANCO THROUGH . PHARMACY NOTIFIED
[2022-05-21] MEDS: PANTOPRAZOLE 40 MG/PACK PACK GT SCH ×2 (08:33→17:18)
[2022-05-21] MEDS: MEROPENEM 1 G in IV NS 0.9% 100 ML IV SCH ×2 (08:33→20:36)
[2022-05-21] MEDS: PROSOURCE / PROSTAT (PYXIS) 30 ML UDC GT SCH ×2 (09:07→17:17)
[2022-05-21] MEDS: DAKINS QUARTER STRENGTH (0.125%) 480 ML BOTTLE TOP SCH ×2 (09:07→09:08)
[2022-05-21] MEDS: IV D5/0.45 NACL 1,000 ML IV PRN (10:29)
[2022-05-21] MEDS ORDERED: POTASSIUM CHLORIDE 10 MEQ TABLET.SA GT ONE (11:00)
[2022-05-21 13:14] LABS: BAND % (MANUAL) 4 % (0.0-5.0); EOSINOPHILS % (MANUAL) 2 % (0-4); LYMPHOCYTES % (MANUAL) 10 % (16-48); MONOCYTES % (MANUAL) 10 % (0-11.0); NEUTROPHILS % (MANUAL) 74 (42-76)
--- NOTE | 2022-05-21 18:36 | NUR ---
RN CLOSING NOTES PATIENT IN BED WITH OPEN EYES, OBTUNDED. ON TRACH TO VENT SETTINGS: AC-22, TV- 500, FIO2-40%, PEEP- 0. O2 SAT 100%. BREATHING EVEN AND UNLABORED. IV ACCESS ON LEFT FOREARM # 18 INTACT AND PATENT. NO S/S OF INFILTRATIONS. ONE UNIT BLOOD TRANSFUSION WAS ORDERED BY DR. ALYSSA ABARCA STARTED AT 1700 AND STILL IS RUNNING, PATIENT IS TOLERATING IT WELL, NO FEVER, NO ALLERGY REACTION, ALL FIRST INITIAL VITAL SIGNS WERE WITHING NORMAL AND DOCUMENTED. PATIENT IS STABLE WITH OPEN EYES. G TUBE FEEDING ON 60 CC/HR. PATIENT'S MRI WAS CANCELED BY MD BECAUSE OUTPATIENT PROGRAM COORDINATOR STATED THAT THEY CANNOT DONE IT FOR THE VENT PATIENT. PADILLA CATHETER IN PLACE. DRAINING BY GRAVITY. NOTED YELLOWISH URINE. ALL DUE MEDS GIVEN ORDERED. THE VANCO TROUGH RESULTS 26 AND VANCO IV WAS HELD AND PHARMACY NOTIFIED. ALL SAFETY MEASURES IN PLACE, BED IN LOWEST POSITION AND LOCKED. BED ALARM ON. PLACE CALL LIGHT WITH IN REACH. WILL ENDORSE TO STAINED GLASS PAINTER NURSE.
--- NOTE | 2022-05-21 19:30 | NUR ---
RN OPENING NOTES RECEIVED PATIENT IN BED, OBTUNDED. ON TRACH TO VENT SETTINGS: AC-22, TV- 500, FIO2-40%, PEEP- 0. BREATHING EVEN AND UNLABORED. IV ACCESS ON LEFT FOREARM # 18 INTACT AND PATENT. NO S/S OF INFILTRATIONS. RUNNING IVF D5 1/2 NS @ 50 ML/HR. GTUBE FEEDING WELL TOLERATED. ON JEVITY 1.2 AT 60CC/HR. ON GOING BLOOD TRANSFUSION. PT AFEBRILE. PADILLA CATHETER IN PLACE. DRAINING BY GRAVITY. NOTED YELLOWISH/CLEAR URINE. ALL SAFETY MEASURES IN PLACE, BED IN LOWEST POSITION AND LOCKED. BED ALARM ON. PLACE CALL LIGHT WITH IN REACH. CONTINUE TO MONITOR.
--- NOTE | 2022-05-21 19:40 | NUR ---
RN NOTES: BLOOD TRANSFUSION COMPLETED. TEMP INCREASED TO 100.3 F, V/S STABLE. PT TOLERATED WELL. WILL CONTINUE TO MONITOR
[2022-05-21] MEDS: ACETAMINOPHEN 325 MG TABLET PO PRN (20:35)
--- NOTE | 2022-05-21 20:39 | NUR ---
RN NOTES: NOTED PT TEMP INCREASED TO 100.3 F. TYLENOL 625 MG 2 TABS GIVEN VIA GTUBE AND COOLING MEASURES PROVIDED. WILL CONTINUE TO MONITOR
[2022-05-21] MEDS: JEVITY 1.2 CAL 1,000 ML BOTTLE GT PRN (23:58)
[2022-05-22] VITALS: BP 96/58
[2022-05-22 04:00] VITALS: BP 92/51
[2022-05-22 05:55] LABS: BASOPHILS % (AUTO) 0.2 % (0.0-2.0); EOSINOPHILS % (AUTO) 1.3 % (0.0-6.0); HEMATOCRIT 24 % (39-51); HEMOGLOBIN 7.6 g/dL (13.5-17.5); LYMPHOCYTES % (AUTO) 17.2 % (20.0-44.0); MEAN CORPUSCULAR HGB CONC 31 g/dl (31.0-36.0); MEAN CORPUSCULAR VOLUME 84 fL (80-96); MONOCYTES # (AUTO) 0.8 K/uL (0.1-1.30); MONOCYTES % (AUTO) 6.5 % (2.0-12.0); NEUTROPHILS # (AUTO) 8.9 K/uL (1.8-8.9); NEUTROPHILS % (AUTO) 74.8 % (43.0-81.0); PLATELET COUNT (AUTO) 580 K/uL (150-450); WHITE BLOOD COUNT (AUTO) 11.9 K/uL (4.3-11.0)
[2022-05-22 07:32] LABS: BILIRUBIN,TOTAL 0.3 mg/dL (0.2-1.0); CALCIUM, SERUM 9.8 mg/dL (8.5-10.1); CREATININE 1.9 mg/dL (0.6-1.3); MAGNESIUM 2.5 mg/dL (1.8-2.4); PHOSPHORUS 3.1 mg/dL (2.5-4.9); POTASSIUM 3.2 mmol/L (3.5-5.1); TOTAL PROTEIN, SERUM 9.4 g/dL (6.4-8.2)
[2022-05-22 08:00] VITALS: BP 103/62
[2022-05-22] MEDS: MEROPENEM 1 G in IV NS 0.9% 100 ML IV SCH ×2 (08:36→20:23)
[2022-05-22] MEDS: DAKINS QUARTER STRENGTH (0.125%) 480 ML BOTTLE TOP SCH ×2 (08:36)
[2022-05-22] MEDS: PROSOURCE / PROSTAT (PYXIS) 30 ML UDC GT SCH ×2 (08:36→16:02)
[2022-05-22] MEDS: PANTOPRAZOLE 40 MG/PACK PACK GT SCH ×2 (08:36→16:02)
[2022-05-22] MEDS: VANCOMYCIN 0.75 GM in IV D5W 250 ML IV SCH (09:09)
[2022-05-22] MEDS ORDERED: POTASSIUM CHLORIDE 20 MEQ POWDER PACKET GT SCH (10:00)
[2022-05-22 12:00] VITALS: BP 106/63
[2022-05-22] MEDS: IV D5/0.45 NACL 1,000 ML IV PRN (12:10)
--- NOTE | 2022-05-22 15:53 | NUR ---
RN NOTE SWELLING NOTED AT IV SITE ON LEFT FOREARM, IV REMOVED. NEW PERIPHERAL IV ATTEMPTED TO BE PLACED X3 BY 2 DIFFERENT RN, UNSUCCESSFUL, PT IS HARD STICK. REPORTED TO CHARGE NURSE BREANN, ORDERED TO REQUEST A MIDLINE FROM NURSING MANAGER CAR.
[2022-05-22 16:00] VITALS: BP 117/74
--- NOTE | 2022-05-22 16:44 | NUR ---
RN NOTE TEMPERATURE 99.3, BED BATH GIVEN.
[2022-05-22] MEDS: JEVITY 1.2 CAL 1,000 ML BOTTLE GT PRN (17:10)
--- NOTE | 2022-05-22 19:10 | NUR ---
MEDICAL TRANSCRIPTIONIST OPEN NOTE: OBTUNDED. TRACH WITH VENT AT PRESCRIBED SETTINGS. GT IN PLACE PATENT WITH JEVITY 1.2 AT 60ML/HR. RIGHT ARM IV SITE PATENT WITH NO S/S OF COMPLICATIONS. IVF D5 1/2 NS AAT 50 ML/HR. PADILLA IN PLACE WITH YELLOW URINE. TELE MONITOR ON WITH A READING OR SINUS RHYTHM 68. REPOSITIONED WITH PILLOWS. HOB ELEVATED SEMI-FOWLERS POSITION. BED IN LOW POSITION, LOCKED, EXIT ALARM ON. BILATERAL HALF SIDE RAILS UP X2. CALL LIGHT IN REACH. NO S/S OF PAIN.
[2022-05-22 20:00] VITALS: BP 108/61
[2022-05-22] MEDS: ACETAMINOPHEN 325 MG TABLET PO PRN (21:07)
[2022-05-23] VITALS: BP 97/54
[2022-05-23 04:00] VITALS: BP 102/64
--- NOTE | 2022-05-23 04:08 | NUR ---
RT pt received on current vent settings. trached. vent plugged in to red outlet. alarms on and audible. ambu bag at bedside. spare trach at bedside. moderate to large thick secretions suctioned via trach. no sob, no resp distress during shift. sat >92% shift uneventful
[2022-05-23 06:32] LABS: BILIRUBIN,TOTAL 0.3 mg/dL (0.2-1.0); CALCIUM, SERUM 9.5 mg/dL (8.5-10.1); CREATININE 1.6 mg/dL (0.6-1.3); MAGNESIUM 2.3 mg/dL (1.8-2.4); PHOSPHORUS 3.1 mg/dL (2.5-4.9); POTASSIUM 3.3 mmol/L (3.5-5.1); TOTAL PROTEIN, SERUM 8.9 g/dL (6.4-8.2)
[2022-05-23 06:44] LABS: BASOPHILS % (AUTO) 0.2 % (0.0-2.0); EOSINOPHILS % (AUTO) 1.5 % (0.0-6.0); HEMATOCRIT 23 % (39-51); HEMOGLOBIN 7.2 g/dL (13.5-17.5); LYMPHOCYTES # (AUTO) 2.3 K/uL (0.8-4.8); LYMPHOCYTES % (AUTO) 18.7 % (20.0-44.0); MEAN CORPUSCULAR HGB CONC 32 g/dl (31.0-36.0); MEAN CORPUSCULAR VOLUME 84 fL (80-96); MONOCYTES # (AUTO) 0.9 K/uL (0.1-1.30); MONOCYTES % (AUTO) 7.6 % (2.0-12.0); NEUTROPHILS # (AUTO) 8.7 K/uL (1.8-8.9); PLATELET COUNT (AUTO) 604 K/uL (150-450); RED BLOOD CELL COUNT(AUTO) 2.69 MIL/uL (4.5-6.0)
--- NOTE | 2022-05-23 07:00 | NUR ---
TELEMETRY NURSE CLOSING NOTE: OBTUNDED. TRACH WITH VENT AT PRESCRIBED SETTINGS. GT IN PLACE PATENT WITH JEVITY 1.2 AT 60ML/HR. RIGHT ARM IV SITE PATENT WITH NO S/S OF COMPLICATIONS. IVF D5 1/2 NS AT 50 ML/HR. PADILLA IN PLACE WITH YELLOW URINE. TELE MONITOR ON WITH A READING OR SINUS RHYTHM 68-70. WOUND CARE PROVIDED TO ALL AFFECTED AREAS. S/P DEBRIDEMENT. DRESSING CHANGED WITH SEROSANGUINEOUS DRAINAGE. REPOSITIONED WITH PILLOWS. ORAL CARE AND TRACH CARE PROVIDED. HOB ELEVATED SEMI-FOWLERS POSITION. BED IN LOW POSITION, LOCKED, EXIT ALARM ON. BILATERAL HALF SIDE RAILS UP X2. CALL LIGHT IN REACH. NO S/S OF PAIN.
[2022-05-23 08:00] VITALS: BP 103/65
--- NOTE | 2022-05-23 09:18 | NUR ---
WOUND CARE: PT SEEN FOR LEFT HIP/BUTTOCK DEEP TISSUE INJURY WHICH IS IN EVOLUTION AND IS NOTED TO BE PRESENT ON ADMISSION PHOTO. DISCUSSED WITH SURGICAL P.A. CURRENTLY ON CASE. DISCUSSED SKIN PROTECTION WITH NURSING STAFF. FIRST STEP LOW AIRLOSS MATTRESS IS ON ORDER. MD IN AGREEMENT WITH PLAN OF CARE.
[2022-05-23] MEDS: VANCOMYCIN 0.75 GM in IV D5W 250 ML IV SCH (09:45)
[2022-05-23] MEDS: MEROPENEM 1 G in IV NS 0.9% 100 ML IV SCH ×2 (09:46→20:46)
[2022-05-23] MEDS: PANTOPRAZOLE 40 MG/PACK PACK GT SCH ×2 (09:46→16:22)
[2022-05-23] MEDS: PROSOURCE / PROSTAT (PYXIS) 30 ML UDC GT SCH ×2 (09:46→16:22)
[2022-05-23] MEDS: DAKINS QUARTER STRENGTH (0.125%) 480 ML BOTTLE TOP SCH ×2 (09:47)
[2022-05-23] MEDS ORDERED: POTASSIUM CL. PREMIX PERIPHER. 50 ML IV SCH (10:00)
[2022-05-23] MEDS: IV D5/0.45 NACL 1,000 ML IV PRN (10:06)
[2022-05-23 12:00] VITALS: BP 110/66
[2022-05-23] MEDS: JEVITY 1.2 CAL 1,000 ML BOTTLE GT PRN (12:55)
[2022-05-23 16:00] VITALS: BP 104/66
--- NOTE | 2022-05-23 18:47 | NUR ---
RN CLOSING NOTES PATIENT IN BED, OBTUNDED. ON TRACH TO VENT SETTINGS: AC-22, TV- 500, FIO2-40%, PEEP- 0. BREATHING EVEN AND UNLABORED. O2 SAT 99%. IV ACCESS ON LEFT FOREARM # 18 INTACT AND PATENT. NO S/S OF INFILTRATIONS. RUNNING IVF D5 1/2 NS @ 50 ML/HR. GTUBE FEEDING WELL TOLERATED. ON JEVITY 1.2 AT 60CC/HR. PADILLA CATHETER IN PLACE. DRAINING BY GRAVITY. NOTED BEBETO COLOR URINE. ALL DUE MEDS GIVEN ORDERED. ALL SAFETY MEASURES IN PLACE, BED IN LOWEST POSITION AND LOCKED. BED ALARM ON. PLACE CALL LIGHT WITH IN REACH. WILL ENDORSE TO WIRE ROPE SLING MAKER NURSE.
[2022-05-23 20:00] VITALS: BP 112/73
[2022-05-24] VITALS: BP 110/71
[2022-05-24 04:00] VITALS: BP 105/65
[2022-05-24 06:53] LABS: BASOPHILS % (AUTO) 0.3 % (0.0-2.0); EOSINOPHILS % (AUTO) 1.8 % (0.0-6.0); HEMATOCRIT 22 % (39-51); HEMOGLOBIN 7.1 g/dL (13.5-17.5); LYMPHOCYTES # (AUTO) 2.2 K/uL (0.8-4.8); LYMPHOCYTES % (AUTO) 19.8 % (20.0-44.0); MEAN CORPUSCULAR HGB CONC 32 g/dl (31.0-36.0); MEAN CORPUSCULAR VOLUME 84 fL (80-96); MONOCYTES # (AUTO) 0.8 K/uL (0.1-1.30); NEUTROPHILS % (AUTO) 71.1 % (43.0-81.0); PLATELET COUNT (AUTO) 663 K/uL (150-450); RED BLOOD CELL COUNT(AUTO) 2.62 MIL/uL (4.5-6.0); WHITE BLOOD COUNT (AUTO) 11.3 K/uL (4.3-11.0)
[2022-05-24 07:02] LABS: BILIRUBIN,TOTAL 0.3 mg/dL (0.2-1.0); CALCIUM, SERUM 9.6 mg/dL (8.5-10.1); CREATININE 1.4 mg/dL (0.6-1.3); MAGNESIUM 2.4 mg/dL (1.8-2.4); PHOSPHORUS 3.1 mg/dL (2.5-4.9); POTASSIUM 3.5 mmol/L (3.5-5.1); TOTAL PROTEIN, SERUM 8.8 g/dL (6.4-8.2)
--- NOTE | 2022-05-24 07:20 | NUR ---
RN OPENING NOTES RECEIVED PATIENT IN BED, OBTUNDED. ON TRACH TO VENT SETTINGS: AC-22, TV- 500, FIO2-40%, PEEP- 0. BREATHING EVEN AND UNLABORED. IV ACCESS ON LEFT FOREARM # 18 INTACT AND PATENT. NO S/S OF INFILTRATIONS. RUNNING IVF D5 1/2 NS @ 50 ML/HR. GTUBE FEEDING ON JEVITY 1.2 AT 60CC/HR. PADILLA CATHETER IN PLACE. DRAINING BY GRAVITY. NOTED YELLOWISH/CLEAR URINE. ALL SAFETY MEASURES IN PLACE, BED IN LOWEST POSITION AND LOCKED. BED ALARM ON. PLACE CALL LIGHT WITH IN REACH. CONTINUE TO MONITOR.
[2022-05-24 07:43] LABS: ALBUMIN 0.9 g/dL (3.4-5.0)
[2022-05-24 08:00] VITALS: BP 123/74
--- NOTE | 2022-05-24 08:36 | NUR ---
RN NOTE REPORT GIVEN TO EMILY SANDY FOR CONTINUITY OF CARE.
[2022-05-24] MEDS: PANTOPRAZOLE 40 MG/PACK PACK GT SCH ×2 (08:45→16:34)
[2022-05-24] MEDS: MEROPENEM 1 G in IV NS 0.9% 100 ML IV SCH ×2 (08:46→20:48)
[2022-05-24] MEDS: DAKINS QUARTER STRENGTH (0.125%) 480 ML BOTTLE TOP SCH ×2 (08:47)
[2022-05-24] MEDS: PROSOURCE / PROSTAT (PYXIS) 30 ML UDC GT SCH ×4 (08:54→20:48)
[2022-05-24 12:00] VITALS: BP 108/70
[2022-05-24] MEDS: JEVITY 1.2 CAL 1,000 ML BOTTLE GT PRN (13:52)
[2022-05-24] MEDS: IV D5/0.45 NACL 1,000 ML IV PRN (13:54)
--- NOTE | 2022-05-24 14:22 | NUR ---
rn notes: CT pelvis done shows osteomyelitis, reported to JAYLEEN ADOBE LAYER HELPER awaiting for any orders
[2022-05-24 16:00] VITALS: BP 105/68
--- NOTE | 2022-05-24 19:10 | NUR ---
RN NOTES RECEIVED PATIENT IN BED, OBTUNDED. ON TRACH TO VENT SETTINGS: AC-22, TV- 500, FIO2-40%, PEEP- 0. BREATHING EVEN AND UNLABORED. IV ACCESS ON R UPPER ARM MIDLINE PATENT FLUSHES WELL. NO S/S OF INFILTRATIONS. RUNNING IVF D5 1/2 NS @ 50 ML/HR. GTUBE FEEDING WELL TOLERATED. ON JEVITY 1.2 AT 60CC/HR. PT AFEBRILE. PADILLA CATHETER IN PLACE. DRAINING BY GRAVITY. NOTED YELLOWISH/CLEAR URINE. ALL SAFETY MEASURES IN PLACE, BED IN LOWEST POSITION AND LOCKED. BED ALARM ON. PLACE CALL LIGHT WITH IN REACH. CONTINUE TO MONITOR.
--- NOTE | 2022-05-24 19:22 | NUR ---
RN CLOSING NOTES PATIENT IN BED, OBTUNDED. ON TRACH TO VENT SETTINGS: AC-22, TV- 500, FIO2-40%, PEEP- 0. BREATHING EVEN AND UNLABORED. O2 SAT 99%. IV ACCESS ON LEFT FOREARM # 18 INTACT AND PATENT. NO S/S OF INFILTRATIONS. RUNNING IVF D5 1/2 NS @ 50 ML/HR. GTUBE FEEDING WELL TOLERATED. ON JEVITY 1.2 AT 60CC/HR. PADILLA CATHETER IN PLACE. DRAINING BY GRAVITY. NOTED BEBETO COLOR URINE. ALL DUE MEDS GIVEN ORDERED. ALL SAFETY MEASURES IN PLACE, BED IN LOWEST POSITION AND LOCKED. BED ALARM ON. PLACE CALL LIGHT WITH IN REACH. WILL ENDORSE TO POLICE RADIO DISPATCHER NURSE.
[2022-05-24 20:00] VITALS: BP 100/68
[2022-05-24] MEDS: LINEZOLID RTU BAG 600 MG in PREMIX 1 EA IV SCH (20:48)
[2022-05-25] VITALS: BP 107/70
[2022-05-25 04:00] VITALS: BP 97/68
[2022-05-25] MEDS ORDERED: VANCOMYCIN 500 MG in IV D5W 100ml IV SCH (06:00)
--- NOTE | 2022-05-25 06:54 | NUR ---
RN CLOSING NOTES PATIENT IN BED, OBTUNDED. ON TRACH TO VENT SETTINGS: AC-22, TV- 500, FIO2-40%, PEEP- 0. BREATHING EVEN AND UNLABORED. O2 SAT 99%. IV ACCESS ON R UA MIDLINE INTACT AND PATENT NO S/S OF INFILTRATIONS. RUNNING IVF D5 1/2 NS @ 50 ML/HR. GTUBE FEEDING WELL TOLERATED. ON JEVITY 1.2 AT 60CC/HR. PADILLA CATHETER IN PLACE. DRAINING BY GRAVITY. NOTED BEBETO COLOR URINE. ALL DUE MEDS GIVEN ORDERED. ALL SAFETY MEASURES IN PLACE, BED IN LOWEST POSITION AND LOCKED. BED ALARM ON. PLACE CALL LIGHT WITH IN REACH. WILL ENDORSE TO VENEREAL DISEASE INVESTIGATOR NURSE.
[2022-05-25] MEDS: JEVITY 1.2 CAL 1,000 ML BOTTLE GT PRN (07:15)
[2022-05-25 07:45] LABS: BASOPHILS % (AUTO) 0.2 % (0.0-2.0); EOSINOPHILS % (AUTO) 1.7 % (0.0-6.0); HEMATOCRIT 24 % (39-51); HEMOGLOBIN 7.7 g/dL (13.5-17.5); LYMPHOCYTES # (AUTO) 1.6 K/uL (0.8-4.8); LYMPHOCYTES % (AUTO) 15.6 % (20.0-44.0); MEAN CORPUSCULAR HGB CONC 32 g/dl (31.0-36.0); MEAN CORPUSCULAR VOLUME 85 fL (80-96); MONOCYTES # (AUTO) 0.8 K/uL (0.1-1.30); MONOCYTES % (AUTO) 7.4 % (2.0-12.0); NEUTROPHILS # (AUTO) 7.6 K/uL (1.8-8.9); NEUTROPHILS % (AUTO) 75.1 % (43.0-81.0); PLATELET COUNT (AUTO) 726 K/uL (150-450); RED BLOOD CELL COUNT(AUTO) 2.87 MIL/uL (4.5-6.0); WHITE BLOOD COUNT (AUTO) 10.1 K/uL (4.3-11.0)
[2022-05-25 08:00] VITALS: BP 111/71
[2022-05-25 08:21] LABS: BILIRUBIN,TOTAL 0.2 mg/dL (0.2-1.0); CALCIUM, SERUM 9.3 mg/dL (8.5-10.1); CREATININE 1.2 mg/dL (0.6-1.3); MAGNESIUM 2.2 mg/dL (1.8-2.4); PHOSPHORUS 3.5 mg/dL (2.5-4.9); POTASSIUM 3.5 mmol/L (3.5-5.1); TOTAL PROTEIN, SERUM 8.9 g/dL (6.4-8.2)
[2022-05-25 08:24] LABS: ALBUMIN 0.9 g/dL (3.4-5.0)
[2022-05-25] MEDS: MEROPENEM 1 G in IV NS 0.9% 100 ML IV SCH ×2 (08:33→20:42)
[2022-05-25] MEDS: PANTOPRAZOLE 40 MG/PACK PACK GT SCH ×2 (08:33→17:46)
[2022-05-25] MEDS: DAKINS QUARTER STRENGTH (0.125%) 480 ML BOTTLE TOP SCH ×2 (08:50)
[2022-05-25] MEDS: PROSOURCE / PROSTAT (PYXIS) 30 ML UDC GT SCH ×4 (08:51→20:43)
[2022-05-25] MEDS: LINEZOLID RTU BAG 600 MG in PREMIX 1 EA IV SCH ×2 (09:22→20:42)
[2022-05-25 12:00] VITALS: BP 110/79
[2022-05-25] MEDS: IV D5/0.45 NACL 1,000 ML IV PRN (13:19)
--- NOTE | 2022-05-25 13:55 | NUR ---
RN NOTE CALLED [facility] AND GAVE REPORT TO EMILY KIMBALL, VARIETY SAW OPERATOR TIME APPROXIMATELY 1600.
[2022-05-25 16:00] VITALS: BP 102/71
--- NOTE | 2022-05-25 18:14 | NUR ---
SPOKE WITH INSURANCE C/O AMBULANCE CANCELLED BY INSURANCE SINCE CM NEED TO NOTIFY [facility] REGARDING DISCHARGE,NURSING SUP NOTIFIED.CM GONE FOR THE DAY PER NURSING SUP WILL FOLLOW-UP IN AM.
--- NOTE | 2022-05-25 18:21 | NUR ---
RN NOTE NOTIFIED DR SHAH OF AMBULANCE CANCELLATION. PER NURSING [facility] CONSULTANT, BACK ROLL LATHE OPERATOR WILL FOLLOW UP TOMORROW. CHARGE NURSE AWARE.
--- NOTE | 2022-05-25 19:09 | NUR ---
RN CLOSING NOTES PATIENT IN BED, OBTUNDED. ON TRACH TO VENT SETTINGS: AC-22, TV- 500, FIO2-40%, PEEP- 0. BREATHING EVEN AND UNLABORED. O2 SAT 99%. IV ACCESS ON KALYN IV SITE 22G INTACT AND PATENT NO S/S OF INFILTRATIONS. RUNNING IVF D5 1/2 NS @ 50 ML/HR. GTUBE FEEDING WELL TOLERATED. ON JEVITY 1.2 AT 60CC/HR. PADILLA CATHETER IN PLACE. DRAINING BY GRAVITY. NOTED BEBETO COLOR URINE. ALL DUE MEDS GIVEN ORDERED. ALL SAFETY MEASURES IN PLACE, BED IN LOWEST POSITION AND LOCKED. BED ALARM ON. PLACE CALL LIGHT WITH IN REACH. WILL ENDORSE TO DRYWALL STRIPPER HELPER NURSE.
--- NOTE | 2022-05-25 19:15 | NUR ---
RN NOTES RECEIVED PT FOR CONTINUITY OF CARE. PATIENT A/OX0 IN NO S/SX OF ACUTE DISTRESS AT THIS TIME; CURRENTLY ON MECHANICAL VENT; SETTING PRESCRIBED, WITH 02 SAT >95% AT THIS TIME. WITH IV ACCESS PATENT, INTACT AND FLUSHING WELL. IV FLUID RUNNING ORDERED AND GTUBE FEEDING RUNNING PRESCRIBED. WILL ENSURE SAFETY MEASURES WITHIN THE SHIFT. PATIENT BED ALARM IS ON. HEAD OF BED ELEVATED. BED IS LOCKED, IN LOWEST POSITION AND SIDE RAILS UP. CALL LIGHT WITHIN REACH OF THE PATIENT. WILL CONTINUE TO MONITOR AND REASSESS FOR ANY CHANGES AND WILL CARRY OUT ANY ONGOING AND ACTIVE MD ORDER.
[2022-05-25 20:00] VITALS: BP 114/60
[2022-05-26] VITALS: BP 106/79
[2022-05-26] MEDS: JEVITY 1.2 CAL 1,000 ML BOTTLE GT PRN ×2 (03:38→23:00)
[2022-05-26 04:00] VITALS: BP 113/89
--- NOTE | 2022-05-26 04:00 | NUR ---
RN NOTES PATIENT REMAINED TO BE IN NO SIGNS OF ACUTE RESPIRATORY DISTRESS , VITAL SIGNS STABLE AT THIS TIME. REGULAR TURNING AND REPOSITIONING DONE, SUCTIONING DONE, WOUND CARE AND AM PATIENT CARE RENDERED WILL CONTINUE TO MONITOR AND REASSESS FOR ANY CHANGES THROUGHOUT THE SHIFT.
--- NOTE | 2022-05-26 06:38 | NUR ---
RN CLOSING NOTE: PATIENT REMAINS IN ROOM IN NO SIGNS OF RESPIRATORY DISTRESS, PATIENT STILL ON MECH VENT; SETTINGS PRESCRIBED; TOLERATING WELL SATURATING @ >95% SP02. SR ON MONITOR. SAFETY MEASURES IMPLEMENTED, BED IN LOWEST POSITION, LOCKED, SIDE RAILS UP, CALL LIGHT WITHIN REACH. ALL NEEDS AND ORDERS ADDRESSED DURING THE SHIFT. IV ACCESS MAINTAINED INTACT, SECURED AND FLUSHING WELL. IV FLUIDS RUNNING ORDERED. ALL DUE MEDS GIVEN ORDERED & SCHEDULED ; PATIENT TOLERATED WELL. TUBE FEEDING RUNNING ORDERED. PATIENT KEPT CLEAN AND COMFORTABLE WITHIN THE SHIFT. PATIENT ENDORSED TO INCOMING SHIFT RN WITH STABLE VITAL SIGN AND FOR CONTINUITY OF CARE.
--- NOTE | 2022-05-26 07:34 | NUR ---
RN OPENING NOTES RECEIVED PT FOR CONTINUITY OF CARE. NO S/SX OF ACUTE DISTRESS AT THIS TIME; CURRENTLY ON MECHANICAL VENT; SETTING PRESCRIBED. WITH IV ACCESS PATENT ON KALYN MIDLINES PATENT AND INTACT, IV FLUID RUNNING ORDERED AND GTUBE FEEDING RUNNING PRESCRIBED, TOLERATING WELL, NO N/V/D NOTED AT THIS TIME. F/C PATENT AND INTACT DRAINING VIA GRAVITY. ON TELE MONITORING WITH READING OF SR HR 68. WILL ENSURE SAFETY MEASURES WITHIN THE SHIFT. PATIENT BED ALARM IS ON. HEAD OF BED ELEVATED. BED IS LOCKED, IN LOWEST POSITION AND SIDE RAILS UP. CALL LIGHT WITHIN REACH OF THE PATIENT. WILL CONTINUE TO MONITOR AND REASSESS FOR ANY CHANGES AND WILL CONTINUE PLAN OF CARE.
[2022-05-26 08:00] VITALS: BP 110/68
[2022-05-26] MEDS: MEROPENEM 1 G in IV NS 0.9% 100 ML IV SCH ×2 (08:07→20:34)
[2022-05-26] MEDS: LINEZOLID RTU BAG 600 MG in PREMIX 1 EA IV SCH (08:08)
[2022-05-26] MEDS: PANTOPRAZOLE 40 MG/PACK PACK GT SCH ×2 (08:08→16:10)
[2022-05-26] MEDS: DAKINS QUARTER STRENGTH (0.125%) 480 ML BOTTLE TOP SCH ×2 (08:24)
[2022-05-26] MEDS: PROSOURCE / PROSTAT (PYXIS) 30 ML UDC GT SCH ×4 (08:53→20:34)
[2022-05-26] MEDS: IV D5/0.45 NACL 1,000 ML IV PRN (11:47)
[2022-05-26 12:00] VITALS: BP 112/71
--- NOTE | 2022-05-26 13:40 | NUR ---
CORPSMAN NOTE PER OFFICE AUTOMATION CLERK PATIENT WILL NOT DISCHARGE TO SNF TODAY DUE TO NO RT AVAILABLE ALONG WITH AMBULANCE WILL TRANSFER TOMORROW, DR SHAH NOTIFIED
[2022-05-26 16:00] VITALS: BP 108/65
--- NOTE | 2022-05-26 18:12 | NUR ---
RN CLOSING NOTE: PATIENT ALERT AND RESPONSIVE, PATIENT STILL ON MECH VENT; SETTINGS PRESCRIBED; TOLERATING WELL SATURATING @99%.ON TELE MONITORING WITH READING SR HR 72. SAFETY MEASURES IMPLEMENTED, BED IN LOWEST POSITION, LOCKED, SIDE RAILS UP, CALL LIGHT WITHIN REACH. ALL NEEDS AND ORDERS ADDRESSED DURING THE SHIFT. IV ACCESS MAINTAINED INTACT, SECURED AND FLUSHING WELL. IV FLUIDS RUNNING ORDERED. GT FEEDING RUNNING ORDERED, TOLERATED WELL, NO N/V/D NOTED. F/C PATENT AND INTACT, DRAINING CLEAR YELLOW URINE, NOTED 1 BM DURING THIS SHIFT. PATIENT KEPT CLEAN AND COMFORTABLE WITHIN THE SHIFT. WILL ENDORSE TO DEPARTMENT HEAD JUNIOR COLLEGE NURSE FOR SANDIP.
[2022-05-26 20:00] VITALS: BP 125/72
--- NOTE | 2022-05-26 20:00 | NUR ---
RN NOTES RECEIVED PATIENT IN BED, OBTUNDED. ON TRACH TO VENT SETTINGS: AC-22, TV- 500, FIO2-40%, PEEP- 0 .V/S STABLE AFEBRILE BREATHING EVEN AND UNLABORED. IV ACCESS ON R UPPER ARM MIDLINE PATENT FLUSHES WELL. NO S/S OF INFILTRATIONS. RUNNING IVF D5 1/2 NS @ 50 ML/HR. GTUBE FEEDING WELL TOLERATED. ON JEVITY 1.2 AT 60CC/HR. PT AFEBRILE. PADILLA CATHETER IN PLACE. DRAINING BY GRAVITY. NOTED YELLOWISH/CLEAR URINE. ALL SAFETY MEASURES IN PLACE, BED IN LOWEST POSITION AND LOCKED. BED ALARM ON. PLACE CALL LIGHT WITH IN REACH. CONTINUE TO MONITOR.
[2022-05-26] MEDS: LINEZOLID 600 MG TABLET NG SCH (20:34)
[2022-05-27] VITALS: BP 101/65
[2022-05-27 04:00] VITALS: BP 109/72
--- NOTE | 2022-05-27 06:44 | NUR ---
telemarketing fundraiser notes Pts remain in bed on ventilator dependent will tolerated by pts no sob no distress noted .pts for discharged today to [facility] at 10am will endorse to rn day shift for continuity of care.
--- NOTE | 2022-05-27 07:40 | NUR ---
RN OPENING NOTES RECEIVED PT FOR CONTINUITY OF CARE. NO S/SX OF ACUTE DISTRESS AT THIS TIME; CURRENTLY ON MECHANICAL VENT; SETTING PRESCRIBED. WITH IV ACCESS PATENT ON KALYN MIDLINES PATENT AND INTACT, IV FLUID RUNNING ORDERED AND GTUBE FEEDING RUNNING PRESCRIBED, TOLERATING WELL, NO N/V/D NOTED AT THIS TIME. F/C PATENT AND INTACT DRAINING VIA GRAVITY. ON TELE MONITORING WITH READING OF SR HR 62, WILL ENSURE SAFETY MEASURES WITHIN THE SHIFT. PATIENT BED ALARM IS ON. HEAD OF BED ELEVATED. BED IS LOCKED, IN LOWEST POSITION AND SIDE RAILS UP. CALL LIGHT WITHIN REACH OF THE PATIENT. WILL CONTINUE PLAN OF CARE.
[2022-05-27 08:00] VITALS: BP 117/71
[2022-05-27] MEDS: PANTOPRAZOLE 40 MG/PACK PACK GT SCH (08:05)
[2022-05-27] MEDS: LINEZOLID 600 MG TABLET NG SCH (08:05)
[2022-05-27] MEDS: DAKINS QUARTER STRENGTH (0.125%) 480 ML BOTTLE TOP SCH ×2 (08:07)
[2022-05-27] MEDS: PROSOURCE / PROSTAT (PYXIS) 30 ML UDC GT SCH (08:20)
[2022-05-27] MEDS: MEROPENEM 1 G in IV NS 0.9% 100 ML IV SCH (08:20)
--- NOTE | 2022-05-27 09:45 | NUR ---
RN NOTES CALLED [facility] SPOKE TO NURSE JIMENEZ AND GAVE REPORT FOR DISCHARGE SUMMARY. WILL CONTINUE PLAN OF CARE
--- NOTE | 2022-05-27 10:59 | NUR ---
RN NOTES GAVE REPORT TO EMT'S AND RN, @1050H PATIENT LEFT THE HOSPITAL VIA GURNEY
== END 2022-05-27 11:17 | DRG 710 ==
LOC: ER 19:55 → TELE1 05-18 08:18 → TELE-TD 05-19 14:49 → TELE1 05-19 16:33
PROC: 5A1955Z Respiratory Ventilation, Greater than 96 Consecutive Hours (ICD-10-PCS; principal; 2022-05-18)
PROC: 30233N1 Transfusion of Nonautologous Red Blood Cells into Peripheral Vein, Percutaneous Approach (ICD-10-PCS; 2022-05-18)
PROC: 0W9B3ZZ Drainage of Left Pleural Cavity, Percutaneous Approach (ICD-10-PCS; 2022-05-20)
PROC: 0QBM0ZZ Excision of Left Tarsal, Open Approach (ICD-10-PCS; 2022-05-21)
PROC: 0QB10ZZ Excision of Sacrum, Open Approach (ICD-10-PCS; 2022-05-22)
DX: A41.9 Sepsis, unspecified organism (principal); J96.21 Acute and chronic respiratory failure with hypoxia; N17.0 Acute kidney failure with tubular necrosis; J69.0 Pneumonitis due to inhalation of food and vomit; G93.40 Encephalopathy, unspecified; E43 Unspecified severe protein-calorie malnutrition; L89.154 Pressure ulcer of sacral region, stage 4; S36.029A Unspecified contusion of spleen, initial encounter; Z93.0 Tracheostomy status; Z99.11 Dependence on respirator [ventilator] status; L89.524 Pressure ulcer of left ankle, stage 4; L89.314 Pressure ulcer of right buttock, stage 4; J90 Pleural effusion, not elsewhere classified; L89.226 Pressure-induced deep tissue damage of left hip; D68.59 Other primary thrombophilia; E88.09 Other disorders of plasma-protein metabolism, not elsewhere classified; D73.4 Cyst of spleen; N39.0 Urinary tract infection, site not specified; Z20.822 Contact with and (suspected) exposure to COVID-19; Z93.1 Gastrostomy status; M19.90 Unspecified osteoarthritis, unspecified site; Z88.8 Allergy status to other drugs, medicaments and biological substances; Z79.01 Long term (current) use of anticoagulants; Z79.51 Long term (current) use of inhaled steroids; Z79.899 Other long term (current) drug therapy; D64.9 Anemia, unspecified; R13.10 Dysphagia, unspecified; I10 Essential (primary) hypertension; Z74.09 Other reduced mobility; X58.XXXA Exposure to other specified factors, initial encounter; Y92.9 Unspecified place or not applicable; F09 Unspecified mental disorder due to known physiological condition; B96.1 Klebsiella pneumoniae [K. pneumoniae] as the cause of diseases classified elsewhere; M46.28 Osteomyelitis of vertebra, sacral and sacrococcygeal region; Z16.12 Extended spectrum beta lactamase (ESBL) resistance; M24.561 Contracture, right knee; M24.562 Contracture, left knee; L89.890 Pressure ulcer of other site, unstageable; Z86.73 Personal history of transient ischemic attack (TIA), and cerebral infarction without residual deficits; E87.6 Hypokalemia; J98.11 Atelectasis; Z87.19 Personal history of other diseases of the digestive system; B96.89 Other specified bacterial agents as the cause of diseases classified elsewhere
CPT/HCPCS: 31720; 36415; 36600; 71045-TC; 71250-TC; 72192-TC; 80048-TC; 80053-TC; 80076-TC; 80202-TC; 81001; 82272-TC; 82803-TC; 82962-TC; 83605-TC; 83735-TC; 83880; 84100-TC; 84443-TC; 84484-TC; 85025-TC; 85730-TC; 86850-TC; 87040-TC; 87070-TC; 87081-TC; 87086-TC; 87186-TC; 89051-TC; 94002-TC; 94003-TC; 94640-TC; 94760-TC; 94762-TC; 94799-TC; A4216; A4623; A6253; A6403; A7526; C9113; C9803; G0378; J0692; J2020; J2185; J2543; J3370; J3480; J3490; J7030; J7040; J7050; J7060; P9016

== ENCOUNTER 2022-06-27 15:06 | Inpatient (IN) | payer OTHER ==
[~2022-06-27] VITALS: Ht 182.9 cm; Wt 75.3 kg
[~2022-06-27 15:06] MED LIST changes: +ALBU6.7H9 IH; -CEFE1FRO IV; +CHLO473M3 MM; +DOCU-141 GT; -DOCU-141 PO; +EPOE1000 IJ; +FERR325T23 GT; -FURO-145 PO; +LACT250L14 GT; +MAGN400O6 GT; -MICA100V IV; +NA P133E RC; -NUTR250L58 GT; +TRAM50TA2 GT; -VANC1.2526 IV
--- NOTE | 2022-06-27 15:30 | NUR ---
rt at bed side
--- NOTE | 2022-06-27 16:20 | NUR ---
WINIFRED REYES [facility] From [facility] "sent by PMD for Abnormal Labs drawn 06/26 H/H 6.1/21.9 Trach/Vent dependent"
[2022-06-27 16:54] LABS: BASOPHILS % (AUTO) 0.3 % (0.0-2.0); EOSINOPHILS % (AUTO) 2.2 % (0.0-6.0); LYMPHOCYTES # (AUTO) 1.5 K/uL (0.8-4.8); MEAN CORPUSCULAR HGB CONC 31 g/dl (31.0-36.0); MEAN CORPUSCULAR VOLUME 86 fL (80-96); MONOCYTES # (AUTO) 0.8 K/uL (0.1-1.30); MONOCYTES % (AUTO) 8.4 % (2.0-12.0); NEUTROPHILS # (AUTO) 7.4 K/uL (1.8-8.9); NEUTROPHILS % (AUTO) 74.1 % (43.0-81.0); PLATELET COUNT (AUTO) 752 K/uL (150-450); RED BLOOD CELL COUNT(AUTO) 2.38 MIL/uL (4.5-6.0)
[2022-06-27 16:57] LABS: HEMOGLOBIN 6.3 g/dL (13.5-17.5)
[2022-06-27 16:58] LABS: HEMATOCRIT 20 % (39-51)
[2022-06-27 17:19] LABS: CALCIUM, SERUM 9.4 mg/dL (8.5-10.1); CREATININE 0.9 mg/dL (0.6-1.3); POTASSIUM 3.9 mmol/L (3.5-5.1)
[2022-06-27 17:24] LABS: BILIRUBIN,DIRECT 0.1 mg/dL (0.0-0.2); BILIRUBIN,TOTAL 0.2 mg/dL (0.2-1.0); TOTAL PROTEIN, SERUM 9.1 g/dL (6.4-8.2)
--- NOTE | 2022-06-27 17:26 | NUR ---
ALBUMIN 1.0 MD MADE AWARE
[2022-06-27] MEDS ORDERED: TRAMADOL HCL 50 MG TABLET GT PRN (17:30)
[2022-06-27] MEDS ORDERED: ALBUTEROL FS 2.5 MG/3 ML VIAL.NEB NEB PRN (17:30)
[2022-06-27] MEDS ORDERED: EPOETIN ALFA-EPBX 10,000 UNIT/ML VIAL SQ SCH (17:30)
[2022-06-27] MEDS ORDERED: MAGNESIUM HYDROXIDE 30 ML UDC GT PRN (17:30)
[2022-06-27] MEDS ORDERED: NA PHOS,M-B/NA PHOS,DI-BA 1 EA ENEMA RC PRN (17:30)
--- NOTE | 2022-06-27 18:41 | NUR ---
MOVE SHEET SUBMITTED.
--- NOTE | 2022-06-27 18:52 | NUR ---
luis sorensen from [facility] will coordinate with angel barney
--- NOTE | 2022-06-27 19:16 | NUR ---
blood ready per lab
--- NOTE | 2022-06-27 19:30 | NUR ---
called bess (brother) left [facility] [place]
--- NOTE | 2022-06-27 19:30 | NUR ---
PER CM - NO BED AVAILABLE AT [facility], AUTH PT ADMISSION TO [facility]
--- NOTE | 2022-06-27 20:10 | NUR ---
BLOOD TRANSFUSION INITIATED AT 75ML/HR. PRE-TRANSFUSION V/S WNL. VERIFIED BY TWO RN'S PRIOR TO INTIIATION. RN AT BEDSIDE MONITORING FOR TRNAFUSION REACTION.
[2022-06-27] MEDS: ALBUTEROL FS 2.5 MG/0.5 ML VIAL.NEB NEB SCH (20:25)
--- NOTE | 2022-06-27 20:25 | NUR ---
TRANSFUSION RATE INCREASED TO 150ML/HR. NO S/S OF TRANSFUSION REACTION.
[2022-06-27] MEDS: CHLORHEXIDINE GLUCONATE 15 ML UDC MM SCH (21:00)
--- NOTE | 2022-06-27 22:17 | NUR ---
TRANSFUSION COMPLETED WITHOUT COMPLICATION. V/S REMAIN WNL. TRANSFUSION SHEET FAXED TO LAB.
[2022-06-27 22:50] LABS: BAND % (MANUAL) 2 % (0.0-5.0); LYMPHOCYTES % (MANUAL) 16 % (16-48); MONOCYTES % (MANUAL) 6 % (0-11.0); NEUTROPHILS % (MANUAL) 76 (42-76)
[2022-06-28] MEDS ORDERED: ALBUTEROL FS 2.5 MG/0.5 ML VIAL.NEB ONE (02:23)
[2022-06-28] MEDS: ALBUTEROL FS 2.5 MG/0.5 ML VIAL.NEB NEB SCH ×4 (02:26→20:32)
--- NOTE | 2022-06-28 05:55 | NUR ---
PADILLA BAG EMPTIED WITH 840ML YELLOW OUTPUT
--- NOTE | 2022-06-28 07:58 | NUR ---
REPORT GIVEN TO GILMA DIAZ FOR SANDIP
[2022-06-28 08:00] VITALS: BP 97/60
--- NOTE | 2022-06-28 08:18 | NUR ---
TRANSFERRED TO BED 118-2 IN STABLE CONDITION
--- NOTE | 2022-06-28 08:20 | NUR ---
PT ARRIVED TO ROOM 118-2 VIA BED AT 0806. VENT TRACH PATIENT. WOUND PICTURES DONE. PT SETTLED IN ROOM, LINENS AND GOWN CHANGED. JOCELYNE, BARREL CAP SETTER NOTIFIED.
--- NOTE | 2022-06-28 08:54 | NUR ---
WOUND CARE CONSULT: PT BEING ADMITTED AT THIS TIME. SPOKE WITH NURSING STAFF WHO STATES THAT PT HAS MULTIPLE WOUNDS INCLUDING LEFT ANKLE, EAR, SCALP, SACRUM AND BUTTOCKS PRESSURE ULCERS, PRESENT ON ADMISSION. DR MCKEON AND DR TORIBIO CALLED FOR SURGICAL AND DPM CONSULTS. FIRST STEP LOW AIRLOSS MATTRESS IS ON ORDER. DISCUSSED SKIN PROTECTION WITH NURSING STAFF. M Jose IN AGREEMENT WITH PLAN OF CARE.
[2022-06-28] MEDS: AMLODIPINE BESYLATE 5 MG TABLET GT SCH (09:00)
[2022-06-28] MEDS ORDERED: DOCUSATE SODIUM 100 MG CAPSULE PO SCH (09:00)
[2022-06-28] MEDS ORDERED: FERROUS SULFATE UDC 300 MG/5 ML UDC GT SCH (09:00)
[2022-06-28] MEDS ORDERED: Z GUARD REMEDY 4 OZ OINT TP PRN (09:00)
--- NOTE | 2022-06-28 09:30 | NUR ---
HAND OFF REPORT TO PRICE DIAZ FOR CONTINUATION OF CARE.
--- NOTE | 2022-06-28 09:40 | NUR ---
RN NOTE RECEIVED REPORT FROM GILMA DIAZ FOR CONTINUITY OF CARE
[2022-06-28] MEDS: CHLORHEXIDINE GLUCONATE 15 ML UDC MM SCH ×2 (11:12→20:51)
[2022-06-28 12:00] VITALS: BP 117/74
[2022-06-28] MEDS: DOCUSATE SODIUM LIQ 100 MG/10 ML UDC GT SCH (12:27)
[2022-06-28] MEDS ORDERED: SOD FERRIC GLUC 125 MG in IV NS 0.9% 100 ML IV SCH (14:00)
[2022-06-28] MEDS ORDERED: IRON SUCROSE COMPLEX 200 MG in IV NS 0.9% 100 ML IV SCH (14:00)
[2022-06-28 14:06] LABS: BASOPHILS # (AUTO) 0.1 K/uL (0.0-0.2); BASOPHILS % (AUTO) 0.5 % (0.0-2.0); EOSINOPHILS % (AUTO) 0.2 % (0.0-6.0); LYMPHOCYTES % (AUTO) 16.1 % (20.0-44.0); MEAN CORPUSCULAR HGB CONC 32 g/dl (31.0-36.0); MEAN CORPUSCULAR VOLUME 83 fL (80-96); MONOCYTES # (AUTO) 1.1 K/uL (0.1-1.30); NEUTROPHILS # (AUTO) 9.1 K/uL (1.8-8.9); NEUTROPHILS % (AUTO) 74.2 % (43.0-81.0); PLATELET COUNT (AUTO) 785 K/uL (150-450); RED BLOOD CELL COUNT(AUTO) 2.45 MIL/uL (4.5-6.0); WHITE BLOOD COUNT (AUTO) 12.3 K/uL (4.3-11.0)
[2022-06-28 14:17] LABS: HEMATOCRIT 20 % (39-51); HEMOGLOBIN 6.4 g/dL (13.5-17.5)
--- NOTE | 2022-06-28 14:18 | NUR ---
RN NOTE RECEIVED CRITICAL LAB HGB 6.4, HCT 20, RBC 2.4, HCT 20.NOTIFIED . AWARE
[2022-06-28] MEDS: Z GUARD REMEDY 4 OZ OINT TP SCH (14:33)
[2022-06-28] MEDS: PANTOPRAZOLE 40 MG VIAL IV SCH (14:39)
[2022-06-28] MEDS ORDERED: EPOETIN ALFA-EPBX 10,000 UNIT/ML VIAL SQ SCH (15:00)
--- NOTE | 2022-06-28 15:09 | NUR ---
RN NOTE ASKED IF OK TO ORDER 1 UNIT PRBC. SAID OK TO ORDER. ORDERS NOTED AND CARRIED OUT.
[2022-06-28 15:58] LABS: LYMPHOCYTES % (MANUAL) 13 % (16-48); MONOCYTES % (MANUAL) 6 % (0-11.0); NEUTROPHILS % (MANUAL) 81 (42-76)
[2022-06-28 16:00] VITALS: BP 109/75
[2022-06-28] MEDS: THERAHONEY GEL 1.5 OZ TUBE TP SCH (19:28)
[2022-06-28 20:00] VITALS: BP 115/71
--- NOTE | 2022-06-28 20:00 | NUR ---
MATHEMATICAL TECHNICIAN OPENING NOTES: RECIEVED PT AWAKE IN BED. NON VERBAL AND UNABLE TO FOLLOW COMMAND. ON VENT AC SETTING WELL TOLERATED NO SOB NO DISTRESS NOTED ,V/S STABLE AFEBRILE.WITH RIGHT UPPER ARM MIDLINE INTACT AND PATENT. ON TELE MONITOR SR ON THE MONITOR NO SIGNS OF PAIN OR DISCOMFORT AT THIS TIME. RESPIRATIONS ARE EQUAL AND UNLABORED WITH NO SOB. TRACH IS PATENT, INTACT,IN MIDLINE POSITION. GT IS PATENT AND INTACT AND CLAMPED PTS IS NPO STATUS. PADILLA CATH IN SITU DRAINING WITH YELLOWISH URINE OUTPUT . HOB ELEVATED TO 30-45 DEGREES. SUCTION SECRETION NEEDED TURNED AND REPOSITION ALL NEEDS ATTENDED TOO CAQL LIGHT WITHIN REACH .SIDERAILS UP AT ALL TIMES. WILL CONTINUE TO MONITOR. PTS HGB IS 6.4 FOR BLOOD TRANSFUSION 1 UNIT , AWAITING FOR PRBC TO BE READY.
--- NOTE | 2022-06-28 20:01 | NUR ---
RN CLOSING NOTE PT IS NONVERBAL. PT IS ON VENT DEPENDENT WITH ORDERED SETTINGS TOLERATING WELL. PT HAS MULTIPLE WOUNDS. PT HAS R MIDLINE.IV PATENT, INTACT AND FLUSHING WELL. PT HAS PADILLA CATHETER.YELLOW COLOR DRAINING TO OUTPUT. PT CURRENTLY NPO DUE TO POSSIBLE GI BLEED. ORAL CARE DONE. GTUBE INTACT, PATENT.NO RESIDUAL VOLUME NOTED. ALL SAFETY MEASURES IN PLACE. SIDE RAILS UP X2. CALL LIGHT WITHIN REACH. BED LOCKED AT LOWEST POSITION. ENDORSED TO ELEVATOR CONSTRUCTOR SUPERVISOR RN FOR CONTINUITY OF CARE
[2022-06-29] VITALS (11 sets, daily range): BP systolic 94–121; BP diastolic 58–71
--- NOTE | 2022-06-29 00:12 | NUR ---
LIFE AGENT NOTES 1 PACK PRBC STARTED AT 0012 HRS FOR HGB 6.4 .V/S TEM 97.8 HR 93 RR20 BP 104/67. NO ASE NOTED WILL CONTINUE TO MONITOR PTS.
[2022-06-29] MEDS: ALBUTEROL FS 2.5 MG/0.5 ML VIAL.NEB NEB SCH ×4 (01:50→19:50)
--- NOTE | 2022-06-29 03:04 | NUR ---
julio c colindres notes !pack prbc transfusion ended at 0300hrs with no aes noted. will do cbc at 6am today Addendum: 06/29/22 at 0559 by TONY PATE RN NO ASE NOTED
--- NOTE | 2022-06-29 06:35 | NUR ---
BENEFIT AUTHORIZER NOTES pTS REMAINS IN VENT , ON SAME SETTING WELL TOLERATED NO SOB NO DISTRESS NOTED .WILL ENDORSE TO RN DAY SHIFT FOR CONTINUITY OF CARE.
[2022-06-29 07:00] LABS: BASOPHILS % (AUTO) 0.5 % (0.0-2.0); EOSINOPHILS % (AUTO) 0.5 % (0.0-6.0); HEMATOCRIT 24 % (39-51); HEMOGLOBIN 7.6 g/dL (13.5-17.5); LYMPHOCYTES # (AUTO) 1.7 K/uL (0.8-4.8); LYMPHOCYTES % (AUTO) 16.2 % (20.0-44.0); MEAN CORPUSCULAR HGB CONC 32 g/dl (31.0-36.0); MEAN CORPUSCULAR VOLUME 84 fL (80-96); MONOCYTES % (AUTO) 9.3 % (2.0-12.0); NEUTROPHILS # (AUTO) 7.8 K/uL (1.8-8.9); NEUTROPHILS % (AUTO) 73.5 % (43.0-81.0); PLATELET COUNT (AUTO) 705 K/uL (150-450); RED BLOOD CELL COUNT(AUTO) 2.87 MIL/uL (4.5-6.0); WHITE BLOOD COUNT (AUTO) 10.6 K/uL (4.3-11.0)
[2022-06-29 07:10] LABS: CALCIUM, SERUM 9.1 mg/dL (8.5-10.1); CREATININE 0.9 mg/dL (0.6-1.3); POTASSIUM 3.6 mmol/L (3.5-5.1)
--- NOTE | 2022-06-29 07:38 | NUR ---
RN OPENING NOTE PT IS NONVERBAL., OPENS EYES. PT IS ON VENT DEPENDENT WITH ORDERED SETTINGS TOLERATING WELL. PT HAS MULTIPLE WOUNDS. PT HAS R MIDLINE.IV PATENT, INTACT AND FLUSHING WELL. PT HAS PADILLA CATHETER.YELLOW COLOR DRAINING TO OUTPUT. PT CURRENTLY NPO DUE TO POSSIBLE GI BLEED.GTUBE INTACT, CLAMPED AT THIS TIME.NO RESIDUAL VOLUME NOTED. ALL SAFETY MEASURES IN PLACE. SIDE RAILS UP X2. CALL LIGHT WITHIN REACH. BED LOCKED AT LOWEST POSITION.
[2022-06-29] MEDS: DOCUSATE SODIUM LIQ 100 MG/10 ML UDC GT SCH (09:43)
[2022-06-29] MEDS: CHLORHEXIDINE GLUCONATE 15 ML UDC MM SCH ×2 (09:43→21:04)
[2022-06-29] MEDS: AMLODIPINE BESYLATE 5 MG TABLET GT SCH (09:43)
[2022-06-29] MEDS: DAKINS HALF STRENGTH (0.25%) 480 ML BOTTLE TOP SCH (09:44)
[2022-06-29] MEDS: THERAHONEY GEL 1.5 OZ TUBE TP SCH (09:44)
[2022-06-29] MEDS: Z GUARD REMEDY 4 OZ OINT TP SCH (09:44)
--- NOTE | 2022-06-29 13:00 | NUR ---
bernadine note gave report to prosper espinoza [facility] Addendum: 06/29/22 at 1316 by PRICE RALPH RN [facility]
--- NOTE | 2022-06-29 14:15 | NUR ---
RN NOTE NOTIFIED [facility] THAT TEMPERATURE IS 102.1. FACILITY SAID TO ORDER COVID TEST
--- NOTE | 2022-06-29 15:00 | NUR ---
RN NOTE TEMPERATURE 102.1. COOLING MEASURES IMPLEMENTED
--- NOTE | 2022-06-29 15:12 | NUR ---
RN NOTE PT WAS SCHEDULED FOR DISCHARGED. AMBULANCE CAME TO AUTOMOTIVE PARTS COUNTER ASSISTANT PT. UPON ASSESSMENT. PT NOTED TO HAVE TEMPERATURE OF 102.1. DISCHARGE WAS PUT ON HOLD. NOTIFIED THAT PT HAS TEMPERATURE OF 102.1. NOTIFIED THAT AMBULANCE CANCELED DISCHARGE FOR NOW.ASKED IF TYLENOL CAN BE ORDERED. SAID TO ORDER RAPID COVID, BLOOD CULTURE, CHEST XRAY, URINALYSIS AND CBC, BMP IN AM. ORDERS NOTED AND CARRIED OUT.
[2022-06-29] MEDS: PANTOPRAZOLE 40 MG VIAL IV SCH (15:30)
[2022-06-29] MEDS ORDERED: JEVITY 1.2 CAL 1,000 ML BOTTLE GT PRN (15:30)
--- NOTE | 2022-06-29 17:44 | NUR ---
RN NOTE SAID OK TO RESUME FEEDING
--- NOTE | 2022-06-29 19:50 | NUR ---
RN CLOSING NOTE PT IS NONVERBAL. OPENS EYES. PT IS ON VENT DEPENDENT WITH ORDERED SETTINGS TOLERATING WELL. PT ON TELE MONITOR SR/ST. PT HAS MULTIPLE WOUNDS. PT HAS R MIDLINE.IV PATENT, INTACT AND FLUSHING WELL. PT HAS PADILLA CATHETER.YELLOW COLOR DRAINING TO OUTPUT. PT GTUBE, INTACT,PATENT.NO RESIDUAL VOLUME NOTED AT THIS TIME.ALL SAFETY MEASURES IN PLACE. SIDE RAILS UP X2. CALL LIGHT WITHIN REACH. BED LOCKED AT LOWEST POSITION. ENDORSED TO FOREST MANAGEMENT PROFESSOR RN FOR CONTINUITY OF CARE
--- NOTE | 2022-06-29 20:21 | NUR ---
QUALITY CONTROL SCIENTIST OPENING NOTES: RECEIVED PT AWAKE IN BED. NON VERBAL AND UNABLE TO FOLLOW COMMAND. ON VENT AC SETTING WELL TOLERATED NO SOB NO DISTRESS NOTED ,V/S STABLE AFEBRILE.WITH RIGHT UPPER ARM MIDLINE INTACT AND PATENT. ON TELE MONITOR SR ON THE MONITOR NO SIGNS OF PAIN OR DISCOMFORT AT THIS TIME. RESPIRATIONS ARE EQUAL AND UNLABORED WITH NO SOB. TRACH IS PATENT, INTACT,IN MIDLINE POSITION. GT IS PATENT AND INTACT RUNNING WITHJEVITY 1.2 AT 65CC/HR . PADILLA CATH IN SITU DRAINING WITH YELLOWISH URINE OUTPUT . HOB ELEVATED TO 30-45 DEGREES. SUCTION SECRETION NEEDED TURNED AND REPOSITION ALL NEEDS ATTENDED TOO CAQL LIGHT WITHIN REACH .SIDERAILS UP AT ALL TIMES. WILL CONTINUE TO MONITOR. PTS
[2022-06-30] VITALS: BP 115/63
[2022-06-30] MEDS: ALBUTEROL FS 2.5 MG/0.5 ML VIAL.NEB NEB SCH ×3 (01:36→13:54)
[2022-06-30 04:00] VITALS: BP 110/75
--- NOTE | 2022-06-30 06:38 | NUR ---
AZURE PRINCIPAL SOLUTION SPECIALIST NOTES pTS REMAINS IN VENT , ON SAME SETTING WELL TOLERATED NO SOB NO DISTRESS NOTED .WILL ENDORSE TO RN DAY SHIFT FOR CONTINUITY OF CARE.V/S STABLE AFEBRILE.
--- NOTE | 2022-06-30 07:30 | NUR ---
DEVELOPMENT SPECIALIST AM NOTES: RECEIVED PT AWAKE IN BED. NON VERBAL AND UNABLE TO FOLLOW COMMAND. WITH PORTEX 7 TO MECHANICAL VENT AC 12 TV 500 FIO2 40 PEEP 5, SETTING WELL TOLERATED. RESPIRATION UNLABORED, BREATHING EVEN. O2 SAT 100%. SR ON MONITOR, NO SIGNS OF PAIN OR DISCOMFORT, NO GRIMACINGS, RIGHT UPPER ARM MIDLINE WITH FLUSHES WELL SITE CLEAR. GTF ONGOING JEVITY 1.2 65 ML/HR X 20 HRS. ON AT 1900 OFF 2300, CHECKED FOR PLACEMENT. O RESIDUAL. WATER FLUSHING. PADILLA CATH IN SITU DRAINING WITH YELLOWISH URINE OUTPUT . HOB ELEVATED TO 30-45 DEGREES. SUCTION SECRETION NEEDED. WILL PERFORM PRESCRIBED WOUND TREATMENT ORDERED. TURN AND REPOSITION Q 2 HOURS. HOB UP X 30 DEG. CALL LIGHT WITHIN REACH .SIDERAILS UP AT ALL TIMES. WILL CONTINUE TO MONITOR.
[2022-06-30 08:00] VITALS: BP 133/83
[2022-06-30 08:37] LABS: CALCIUM, SERUM 9.1 mg/dL (8.5-10.1); POTASSIUM 3.5 mmol/L (3.5-5.1)
--- NOTE | 2022-06-30 09:30 | NUR ---
RN NOTES DUE MEDS GIVEN
[2022-06-30] MEDS: CHLORHEXIDINE GLUCONATE 15 ML UDC MM SCH (09:32)
[2022-06-30] MEDS: Z GUARD REMEDY 4 OZ OINT TP SCH (09:34)
[2022-06-30] MEDS: THERAHONEY GEL 1.5 OZ TUBE TP SCH (09:34)
[2022-06-30] MEDS: DOCUSATE SODIUM LIQ 100 MG/10 ML UDC GT SCH (09:34)
[2022-06-30] MEDS: DAKINS HALF STRENGTH (0.25%) 480 ML BOTTLE TOP SCH (09:34)
[2022-06-30] MEDS: AMLODIPINE BESYLATE 5 MG TABLET GT SCH (09:36)
[2022-06-30 10:25] LABS: BASOPHILS % (AUTO) 0.2 % (0.0-2.0); EOSINOPHILS % (AUTO) 0.3 % (0.0-6.0); HEMATOCRIT 26 % (39-51); HEMOGLOBIN 8.1 g/dL (13.5-17.5); LYMPHOCYTES # (AUTO) 1.8 K/uL (0.8-4.8); LYMPHOCYTES % (AUTO) 16.9 % (20.0-44.0); MEAN CORPUSCULAR HGB CONC 31 g/dl (31.0-36.0); MEAN CORPUSCULAR VOLUME 84 fL (80-96); MONOCYTES # (AUTO) 1.2 K/uL (0.1-1.30); MONOCYTES % (AUTO) 10.9 % (2.0-12.0); NEUTROPHILS # (AUTO) 7.6 K/uL (1.8-8.9); NEUTROPHILS % (AUTO) 71.7 % (43.0-81.0); PLATELET COUNT (AUTO) 681 K/uL (150-450); RED BLOOD CELL COUNT(AUTO) 3.06 MIL/uL (4.5-6.0); WHITE BLOOD COUNT (AUTO) 10.6 K/uL (4.3-11.0)
[2022-06-30 12:00] VITALS: BP 115/76
--- NOTE | 2022-06-30 14:47 | NUR ---
RN NOTES PATIENT FOR DISCHARGE TODAY BACK TO [facility] REPORT GIVEN TO KARI DIAZ AT THE FACILITY AMBULANCE P/U AT 1600
[2022-06-30] MEDS ORDERED: ACETAMINOPHEN 650 MG/20.3 ML UDC NG ONE (15:30)
--- NOTE | 2022-06-30 16:23 | NUR ---
RN NOTES PATIENT DISCHARGED BACK TO [facility] PER STABLE CONDITION, PROVIDED DC INSTRUCTIONS, MED RECON LIST AND HEALTH TEACHINGS. PT TO FOLLOW UP WITH PCP IN 1 WEEK OR PER FACILITY PROTOCOL. PHOTOS CONFORMED WITH SKIN ISSUES. ALL DRESSING INTACT. IV ACCESS ON RT UPPER ARM MIDLINE REMOVED, CATH TIP COMPLETE, PRESSURES APPLIED, NO BLEEDING, DRESSING IN PLACE. G TUBE IN SITU. PATENT/INTACT. PADILLA CATH IN PLACE, DRAINING YELLOW COLORED URINE, ADEQUATE AMOUNT 450 ML OUTPUT. REPORT GIVEN TO KARI DIAZ AT FACILITY EARLIER. NO BELONGINGS. ALL PAPERWORKS SIGNED. PICKED UP BY 3 AMBULANCE CREW AND WILL TRANSPORT PATIENT TO FACILITY.
[2022-07-01] MEDS ORDERED: PANTOPRAZOLE 40 MG/PACK PACK GT SCH (09:00)
== END 2022-06-30 16:44 | DRG 253 ==
LOC: ER 15:14 → TRANSITION 06-28 02:59 → MEDSG1 06-28 08:11 → TELE1 06-28 14:28 → UNDODISIN 06-29 14:22
PROVIDERS: ADMIT Internal Medicine; ATTEND Internal Medicine
PROC: 5A1945Z Respiratory Ventilation, 24-96 Consecutive Hours (ICD-10-PCS; principal; 2022-06-28)
PROC: 30233N1 Transfusion of Nonautologous Red Blood Cells into Peripheral Vein, Percutaneous Approach (ICD-10-PCS; 2022-06-28)
DX: K92.2 Gastrointestinal hemorrhage, unspecified (principal); N17.0 Acute kidney failure with tubular necrosis; G93.41 Metabolic encephalopathy; E43 Unspecified severe protein-calorie malnutrition; L89.224 Pressure ulcer of left hip, stage 4; L89.154 Pressure ulcer of sacral region, stage 4; L89.894 Pressure ulcer of other site, stage 4; L89.524 Pressure ulcer of left ankle, stage 4; D68.59 Other primary thrombophilia; L89.896 Pressure-induced deep tissue damage of other site; J96.10 Chronic respiratory failure, unspecified whether with hypoxia or hypercapnia; L89.516 Pressure-induced deep tissue damage of right ankle; R53.2 Functional quadriplegia; E88.09 Other disorders of plasma-protein metabolism, not elsewhere classified; D64.9 Anemia, unspecified; Z99.11 Dependence on respirator [ventilator] status; Z93.0 Tracheostomy status; Z20.822 Contact with and (suspected) exposure to COVID-19; Z93.1 Gastrostomy status; R13.10 Dysphagia, unspecified; F09 Unspecified mental disorder due to known physiological condition; Z86.73 Personal history of transient ischemic attack (TIA), and cerebral infarction without residual deficits; Z88.8 Allergy status to other drugs, medicaments and biological substances; M19.90 Unspecified osteoarthritis, unspecified site; Z79.01 Long term (current) use of anticoagulants; Z79.51 Long term (current) use of inhaled steroids; Z79.899 Other long term (current) drug therapy; M24.561 Contracture, right knee; M24.562 Contracture, left knee; I10 Essential (primary) hypertension
CPT/HCPCS: 31720; 36415; 71045-TC; 80048-TC; 80076-TC; 82962-TC; 85025-TC; 85730-TC; 86850-TC; 87040-TC; 87081-TC; 87086-TC; 94002-TC; 94003-TC; 94760-TC; 94799-TC; 99082-TC; A6253; A6403; C9113; C9803; G0378; J0885; J1756; J7030; J7050; P9016

== ENCOUNTER 2023-04-09 13:59 | Inpatient (IN) | payer OTHER ==
[~2023-04-09] VITALS: Ht 182.9 cm; Wt 67.1 kg
[~2023-04-09 13:59] MED LIST changes: -ENOX40DI SQ; -EPOE1000 IJ; +EPOE1000 SQ
[2023-04-09] MEDS ORDERED: POLY17PO4 GT (14:47)
[2023-04-09] MEDS ORDERED: NUTR250L50 GT (14:47)
[2023-04-09] MEDS ORDERED: CRAN3875 GT (14:47)
[2023-04-09] MEDS ORDERED: ACET-868 GT ×2 (14:47)
[2023-04-09] MEDS ORDERED: POVI3780 TP (14:47)
[2023-04-09] MEDS ORDERED: SODI480S2 TOP (14:47)
[2023-04-09] MEDS ORDERED: MIDO5TAB4 GT (14:47)
[2023-04-09] MEDS ORDERED: PANT40SU2 GT (14:47)
[2023-04-09] MEDS ORDERED: FURO-145 GT (14:47)
[2023-04-09] MEDS ORDERED: ARGI1PAC GT (14:47)
[2023-04-09] MEDS ORDERED: CALCIUM ALGINATE TD (14:47)
[2023-04-09] MEDS ORDERED: ACET-2605 GT (14:47)
[2023-04-09] MEDS ORDERED: ACET650S26 GT (14:47)
[2023-04-09] MEDS ORDERED: ASCO500T10 GT (14:47)
[2023-04-09 15:04] LABS: BASOPHILS % (AUTO) 0.5 % (0.0-2.0); EOSINOPHILS # (AUTO) 0.2 K/uL (0.0-0.7); EOSINOPHILS % (AUTO) 1.7 % (0.0-6.0); HEMATOCRIT 30 % (39-51); HEMOGLOBIN 9.4 g/dL (13.5-17.5); LYMPHOCYTES # (AUTO) 1.7 K/uL (0.8-4.8); LYMPHOCYTES % (AUTO) 16.3 % (20.0-44.0); MEAN CORPUSCULAR HEMOGLOBIN 27 PG (26.0-33.0); MEAN CORPUSCULAR HGB CONC 32 g/dl (31.0-36.0); MEAN CORPUSCULAR VOLUME 85 fL (80-96); MONOCYTES % (AUTO) 9.7 % (2.0-12.0); NEUTROPHILS # (AUTO) 7.3 K/uL (1.8-8.9); NEUTROPHILS % (AUTO) 71.8 % (43.0-81.0); PLATELET COUNT (AUTO) 784 K/uL (150-450); RED BLOOD CELL COUNT(AUTO) 3.46 MIL/uL (4.5-6.0); RED CELL DISTRIBUTION WIDTH 18.8 % (11.5-15.0); WHITE BLOOD COUNT (AUTO) 10.1 K/uL (4.3-11.0)
[2023-04-09 15:14] LABS: INR 1.14 (0.91-1.10); PARTIAL THROMBOPLASTIN TIME 31.8 SEC (24.3-34.3); PROTHROMBIN TIME 11.9 SECS (9.2-11.1)
[2023-04-09 15:21] LABS: CARBON DIOXIDE 30 mmol/L (21-32); CHLORIDE 95 mmol/L (98-107); CREATININE 1.8 mg/dL (0.6-1.3); GLUCOSE 96 mg/dL (74-106); POTASSIUM 4.4 mmol/L (3.5-5.1); SODIUM SERUM 132 mmol/L (136-145)
[2023-04-09 15:27] LABS: ALANINE AMINOTRANSFERASE 46 U/L (12-78); ALBUMIN 1.4 g/dL (3.4-5.0); ALKALINE PHOSPHATASE 229 U/L (46-116); ASPARTATE AMINOTRANSFERASE 35 U/L (15-37); BILIRUBIN,DIRECT 0.1 mg/dL (0.0-0.2); BILIRUBIN,TOTAL 0.3 mg/dL (0.2-1.0); CALCIUM, SERUM 13.7 mg/dL (8.5-10.1); TOTAL PROTEIN, SERUM 10.5 g/dL (6.4-8.2)
[2023-04-09 15:28] LABS: UREA NITROGEN, BLOOD 98 mg/dL (7-18)
[2023-04-09] MEDS ORDERED: IV NS 0.9% 1,000 ML IV ONE (15:30)
[2023-04-09] MEDS ORDERED: PIPERACILLIN /TAZOBACTAM 3.375 G in IV D5W 50 ML IV ONE (15:30)
[2023-04-09] MEDS ORDERED: VANCOMYCIN 1 GM in IV D5W 250 ML IV ONE (15:30)
[2023-04-09 15:33] LABS: LACTIC ACID 1.3 mmol/L (0.4-2.0)
[2023-04-09 16:05] LABS: APPEARANCE,URINE SLIGHTLY CLOUDY (CLEAR); BILIRUBIN,URINE NEGATIVE (NEGATIVE); BLOOD, URINE 1+ Ery/uL (NEGATIVE); COLOR,URINE YELLOW (YELLOW); KETONES,URINE NEGATIVE (NEGATIVE); LEUKOCYTE ESTERASE ,URINE 3+ (NEGATIVE); NITRITE, URINE NEGATIVE (NEGATIVE); PROTEIN,URINE 2+ mg/dl (NEGATIVE); UGLUCOSE NEGATIVE (NEGATIVE); UROBILINOGEN,URINE 0.2 EU/dL (0.2)
[2023-04-09 16:26] LABS: ADD URINE CULTURE YES; BACTERIA,URINE Moderate /HPF (None Seen); WBC,URINE 81-100 /HPF (0-3)
[2023-04-09 16:27] LABS: CALCIUM OXALATE CRYSTALS,UR Few /HPF (None Seen); SQUAMOUS EPITHELIAL CELL,UR Few /HPF (None Seen)
[2023-04-09] MEDS ORDERED: ONDANSETRON HCL/PF 4 MG/2 ML VIAL IVP PRN (17:00)
[2023-04-09] MEDS ORDERED: HYDROCODONE/APAP 5/325MG TABLET PO PRN (17:00)
[2023-04-09] MEDS ORDERED: Z GUARD REMEDY 4 OZ OINT TP PRN (17:00)
[2023-04-09] MEDS ORDERED: ACETAMINOPHEN 325 MG TABLET PO PRN (17:00)
[2023-04-09] MEDS ORDERED: ENOXAPARIN SODIUM 30 MG/0.3 ML DISP.SYRIN SQ SCH (17:00)
[2023-04-09] MEDS ORDERED: MAGNESIUM HYDROXIDE 30 ML UDC PO PRN (17:00)
[2023-04-09] MEDS ORDERED: MAG HYDROX/AL HYDROX/SIMETH 30 ML UDC PO PRN (17:00)
[2023-04-09] MEDS: IV NS 0.9% 1,000 ML IV PRN (17:56)
[2023-04-09 20:00] VITALS: BP 126/62; TEMP 98.2; O2SAT 99
[2023-04-09] MEDS: CEFEPIME 1 GM in IV D5W 50 ML IV SCH (20:22)
[2023-04-09] MEDS: ENOXAPARIN SODIUM 40 MG/0.4 ML DISP.SYRIN SQ SCH (21:31)
[2023-04-10] VITALS (7 sets, daily range): BP systolic 84–120; BP diastolic 53–85; TEMP 97.8–102.4; O2SAT 95–99
[2023-04-10] MEDS: IV NS 0.9% 1,000 ML IV PRN ×2 (05:24→20:23)
[2023-04-10 07:26] LABS: BASOPHILS % (AUTO) 0.5 % (0.0-2.0); EOSINOPHILS # (AUTO) 0.1 K/uL (0.0-0.7); HEMATOCRIT 28 % (39-51); HEMOGLOBIN 9.1 g/dL (13.5-17.5); LYMPHOCYTES # (AUTO) 1.2 K/uL (0.8-4.8); LYMPHOCYTES % (AUTO) 11.9 % (20.0-44.0); MEAN CORPUSCULAR HEMOGLOBIN 28 PG (26.0-33.0); MEAN CORPUSCULAR HGB CONC 32 g/dl (31.0-36.0); MEAN CORPUSCULAR VOLUME 86 fL (80-96); MONOCYTES # (AUTO) 0.7 K/uL (0.1-1.30); MONOCYTES % (AUTO) 6.7 % (2.0-12.0); NEUTROPHILS # (AUTO) 7.9 K/uL (1.8-8.9); NEUTROPHILS % (AUTO) 79.9 % (43.0-81.0); PLATELET COUNT (AUTO) 778 K/uL (150-450); RED BLOOD CELL COUNT(AUTO) 3.32 MIL/uL (4.5-6.0); WHITE BLOOD COUNT (AUTO) 9.9 K/uL (4.3-11.0)
[2023-04-10] MEDS: PANTOPRAZOLE 40 MG TABLET.DR PO SCH (07:40)
[2023-04-10 07:49] LABS: THYROID STIMULATING HORMONE 1.551 uIU/mL (0.358-3.74)
[2023-04-10 07:54] LABS: CREATININE 1.6 mg/dL (0.6-1.3); MAGNESIUM 2.5 mg/dL (1.8-2.4); PHOSPHORUS 5.7 mg/dL (2.5-4.9); POTASSIUM 4.1 mmol/L (3.5-5.1)
[2023-04-10 08:01] LABS: CALCIUM, SERUM 13.3 mg/dL (8.5-10.1)
[2023-04-10] MEDS: CEFEPIME 1 GM in IV D5W 50 ML IV SCH ×2 (08:05→20:22)
[2023-04-10] MEDS: NEPRO 1,000 ML BOTTLE GT PRN (08:49)
[2023-04-10] MEDS: DAKINS QUARTER STRENGTH (0.125%) 480 ML BOTTLE TOP SCH ×3 (11:00→22:52)
[2023-04-10] MEDS ORDERED: LIDOCAINE HCL/MPF 1% 30 ML VIAL IJ ONE (11:16)
[2023-04-10] MEDS ORDERED: BUPIVACAINE MPF 0.5% W/EPI INJ 30 ML VIAL ONE (11:16)
[2023-04-10] MEDS ORDERED: BACITRACIN OPHTH OINT 3.5 GM TUBE ONE (12:40)
[2023-04-10 12:52] LABS: IRON, SERUM 22 ug/dl (50-175); TOTAL IRON BINDING CAPACITY 160 ug/dl (250-450)
[2023-04-10] MEDS: ASPIRIN EC 81 MG TABLET.DR PO SCH (12:53)
[2023-04-10] MEDS ORDERED: PAMIDRONATE 60 MG in IV NS 0.9% 500 ML IV ONE (13:00)
[2023-04-10] MEDS ORDERED: VANCOMYCIN 1.25 GM in IV D5W 250 ML IV SCH (16:00)
[2023-04-10 16:38] LABS: APPEARANCE,URINE CLOUDY (CLEAR); BILIRUBIN,URINE NEGATIVE (NEGATIVE); BLOOD, URINE 2+ Ery/uL (NEGATIVE); COLOR,URINE YELLOW (YELLOW); KETONES,URINE NEGATIVE (NEGATIVE); LEUKOCYTE ESTERASE ,URINE 3+ (NEGATIVE); NITRITE, URINE NEGATIVE (NEGATIVE); PH,URINE 6.5 (5.0-8.0); PROTEIN,URINE 2+ mg/dl (NEGATIVE); UGLUCOSE NEGATIVE (NEGATIVE); UROBILINOGEN,URINE 0.2 EU/dL (0.2)
[2023-04-10 16:55] LABS: CREATININE, URINE 19.5 MG/DL (30.0-125.0); URINE TOTAL PROTEIN 233.4 mg/dL (0-11.9)
[2023-04-10 17:00] LABS: ADD URINE CULTURE YES; BACTERIA,URINE 3+ /HPF (None Seen); MUCUS,URINE Few /LPF (None Seen); RBC,URINE 21-50 /HPF (0-2); SQUAMOUS EPITHELIAL CELL,UR 0-2 /HPF (None Seen); WBC,URINE TOO NUMEROUS TO COUN /HPF (0-3)
[2023-04-10 17:24] LABS: EOSINOPHIL,URINE None Seen
[2023-04-10 17:40] LABS: FERRITIN 0 ng/mL (8-388)
[2023-04-10] MEDS ORDERED: IV NS 0.9% 500 ML BAG IV ONE (20:30)
[2023-04-10] MEDS: ENOXAPARIN SODIUM 40 MG/0.4 ML DISP.SYRIN SQ SCH (20:32)
[2023-04-10] MEDS: THERAHONEY GEL 1.5 OZ TUBE TP SCH (21:30)
[2023-04-11] VITALS: BP 102/62; TEMP 100.1; O2SAT 97
[2023-04-11 04:00] VITALS: BP 100/60; TEMP 98.8; O2SAT 99
[2023-04-11 07:07] LABS: IMMUNOGLOBULIN A, SERUM 507 mg/dL (90-386); IMMUNOGLOBULIN G, SERUM 5097 mg/dL (603-1613)
[2023-04-11 07:28] LABS: BASOPHILS # (AUTO) 0.1 K/uL (0.0-0.2); BASOPHILS % (AUTO) 0.6 % (0.0-2.0); EOSINOPHILS # (AUTO) 0.1 K/uL (0.0-0.7); HEMATOCRIT 26 % (39-51); HEMOGLOBIN 8.1 g/dL (13.5-17.5); LYMPHOCYTES # (AUTO) 1.3 K/uL (0.8-4.8); LYMPHOCYTES % (AUTO) 12.4 % (20.0-44.0); MEAN CORPUSCULAR HEMOGLOBIN 27 PG (26.0-33.0); MEAN CORPUSCULAR HGB CONC 31 g/dl (31.0-36.0); MEAN CORPUSCULAR VOLUME 86 fL (80-96); MONOCYTES # (AUTO) 1.2 K/uL (0.1-1.30); MONOCYTES % (AUTO) 11.1 % (2.0-12.0); NEUTROPHILS % (AUTO) 74.9 % (43.0-81.0); PLATELET COUNT (AUTO) 696 K/uL (150-450); RED BLOOD CELL COUNT(AUTO) 3.02 MIL/uL (4.5-6.0); RED CELL DISTRIBUTION WIDTH 18.6 % (11.5-15.0); WHITE BLOOD COUNT (AUTO) 10.7 K/uL (4.3-11.0)
[2023-04-11 08:00] VITALS: BP 106/69; TEMP 97.9; O2SAT 100
[2023-04-11 08:07] LABS: FREE KAPPA LT CHAINS SERUM 565.3 mg/L (3.3-19.4); FREE LAMBDA LT CHAIN SERUM 345.8 mg/L (5.7-26.3); KAPPA/LAMBDA RATIO SERUM 1.63 (0.26-1.65)
[2023-04-11] MEDS: ASPIRIN EC 81 MG TABLET.DR PO SCH (08:53)
[2023-04-11] MEDS: PANTOPRAZOLE 40 MG TABLET.DR PO SCH (08:54)
[2023-04-11] MEDS: CEFEPIME 1 GM in IV D5W 50 ML IV SCH ×2 (08:57→20:20)
[2023-04-11] MEDS: DAKINS QUARTER STRENGTH (0.125%) 480 ML BOTTLE TOP SCH (08:57)
[2023-04-11 09:00] LABS: BILIRUBIN,TOTAL 0.4 mg/dL (0.2-1.0); CALCIUM, SERUM 12.8 mg/dL (8.5-10.1); MAGNESIUM 2.2 mg/dL (1.8-2.4); PHOSPHORUS 6.3 mg/dL (2.5-4.9); TOTAL PROTEIN, SERUM 9.6 g/dL (6.4-8.2)
[2023-04-11 09:09] LABS: ALBUMIN 1.2 g/dL (3.4-5.0)
[2023-04-11] MEDS: THERAHONEY GEL 1.5 OZ TUBE TP SCH (09:27)
[2023-04-11 10:03] LABS: POTASSIUM 3.8 mmol/L (3.5-5.1)
[2023-04-11] MEDS: IV NS 0.9% 1,000 ML IV PRN (11:30)
[2023-04-11 12:00] VITALS: BP 101/69; TEMP 98.1; O2SAT 100
[2023-04-11 12:07] LABS: FOLIC ACID > 20.0 ng/mL (>3.0)
[2023-04-11 16:00] VITALS: BP 103/57; TEMP 97; O2SAT 100
[2023-04-11] MEDS ORDERED: VANCOMYCIN 1 GM in IV D5W 250ml IV SCH (16:00)
[2023-04-11] MEDS: NEPRO 1,000 ML BOTTLE GT PRN (16:27)
[2023-04-11 20:00] VITALS: BP 108/55; TEMP 97.3; O2SAT 100
[2023-04-11] MEDS: ENOXAPARIN SODIUM 40 MG/0.4 ML DISP.SYRIN SQ SCH (20:31)
[2023-04-12] VITALS: BP 93/62; TEMP 97.3; O2SAT 100
[2023-04-12 04:00] VITALS: BP 99/62; TEMP 97.7; O2SAT 100
[2023-04-12] MEDS: IV NS 0.9% 1,000 ML IV PRN ×2 (04:36→20:37)
[2023-04-12 06:20] LABS: BASOPHILS % (AUTO) 0.7 % (0.0-2.0); EOSINOPHILS # (AUTO) 0.2 K/uL (0.0-0.7); EOSINOPHILS % (AUTO) 3.2 % (0.0-6.0); HEMATOCRIT 26 % (39-51); HEMOGLOBIN 8.1 g/dL (13.5-17.5); LYMPHOCYTES % (AUTO) 16.1 % (20.0-44.0); MEAN CORPUSCULAR HEMOGLOBIN 28 PG (26.0-33.0); MEAN CORPUSCULAR HGB CONC 32 g/dl (31.0-36.0); MEAN CORPUSCULAR VOLUME 87 fL (80-96); MONOCYTES # (AUTO) 0.8 K/uL (0.1-1.30); MONOCYTES % (AUTO) 12.7 % (2.0-12.0); NEUTROPHILS # (AUTO) 4.1 K/uL (1.8-8.9); NEUTROPHILS % (AUTO) 67.3 % (43.0-81.0); PLATELET COUNT (AUTO) 626 K/uL (150-450); RED BLOOD CELL COUNT(AUTO) 2.95 MIL/uL (4.5-6.0); RED CELL DISTRIBUTION WIDTH 18.4 % (11.5-15.0); WHITE BLOOD COUNT (AUTO) 6.1 K/uL (4.3-11.0)
[2023-04-12 06:36] LABS: BILIRUBIN,TOTAL 0.3 mg/dL (0.2-1.0); CALCIUM, SERUM 12.1 mg/dL (8.5-10.1); CREATININE 1.8 mg/dL (0.6-1.3); MAGNESIUM 2.2 mg/dL (1.8-2.4); PHOSPHORUS 4.9 mg/dL (2.5-4.9); POTASSIUM 3.1 mmol/L (3.5-5.1); TOTAL PROTEIN, SERUM 9.6 g/dL (6.4-8.2)
[2023-04-12 06:48] LABS: ALBUMIN 1.2 g/dL (3.4-5.0)
[2023-04-12 08:00] VITALS: BP 116/74; TEMP 98.2; O2SAT 100
[2023-04-12] MEDS: FERROUS SULFATE (325 MG) 325 MG/TAB TABLET PO SCH ×2 (08:39→17:04)
[2023-04-12] MEDS: PANTOPRAZOLE 40 MG TABLET.DR PO SCH (08:39)
[2023-04-12] MEDS: ASPIRIN EC 81 MG TABLET.DR PO SCH (08:39)
[2023-04-12] MEDS: CEFEPIME 1 GM in IV D5W 50 ML IV SCH ×2 (09:30→20:37)
[2023-04-12] MEDS: DAKINS QUARTER STRENGTH (0.125%) 480 ML BOTTLE TOP SCH ×2 (09:32→09:34)
[2023-04-12] MEDS: THERAHONEY GEL 1.5 OZ TUBE TP SCH (09:36)
[2023-04-12] MEDS ORDERED: POTASSIUM CHLORIDE 20 MEQ POWDER PACKET PO ONE (11:00)
[2023-04-12 12:00] VITALS: BP 110/67; TEMP 98.5; O2SAT 100
[2023-04-12 16:00] VITALS: BP 105/66; TEMP 98.2; O2SAT 100
[2023-04-12] MEDS ORDERED: POTASSIUM CHLORIDE 20 MEQ TAB.PRT.SR PO ONE (16:00)
[2023-04-12 20:00] VITALS: BP 94/62; TEMP 98.4; O2SAT 100
[2023-04-12] MEDS: ENOXAPARIN SODIUM 40 MG/0.4 ML DISP.SYRIN SQ SCH (20:40)
[2023-04-12] MEDS: NEPRO 1,000 ML BOTTLE GT PRN (23:48)
[2023-04-13] VITALS: BP 102/65; TEMP 97.5; O2SAT 100
[2023-04-13 04:00] VITALS: BP 91/65; TEMP 98.1; O2SAT 100
[2023-04-13 06:27] LABS: BASOPHILS % (AUTO) 0.4 % (0.0-2.0); EOSINOPHILS # (AUTO) 0.1 K/uL (0.0-0.7); EOSINOPHILS % (AUTO) 2.1 % (0.0-6.0); HEMATOCRIT 27 % (39-51); HEMOGLOBIN 8.4 g/dL (13.5-17.5); LYMPHOCYTES # (AUTO) 1.6 K/uL (0.8-4.8); LYMPHOCYTES % (AUTO) 24.3 % (20.0-44.0); MEAN CORPUSCULAR HEMOGLOBIN 27 PG (26.0-33.0); MEAN CORPUSCULAR HGB CONC 31 g/dl (31.0-36.0); MEAN CORPUSCULAR VOLUME 86 fL (80-96); MONOCYTES # (AUTO) 0.8 K/uL (0.1-1.30); MONOCYTES % (AUTO) 11.9 % (2.0-12.0); NEUTROPHILS % (AUTO) 61.3 % (43.0-81.0); PLATELET COUNT (AUTO) 660 K/uL (150-450); RED CELL DISTRIBUTION WIDTH 18.3 % (11.5-15.0); WHITE BLOOD COUNT (AUTO) 6.6 K/uL (4.3-11.0)
[2023-04-13 06:46] LABS: BILIRUBIN,TOTAL 0.3 mg/dL (0.2-1.0); CALCIUM, SERUM 11.8 mg/dL (8.5-10.1); CREATININE 1.6 mg/dL (0.6-1.3); MAGNESIUM 2.3 mg/dL (1.8-2.4); PHOSPHORUS 3.9 mg/dL (2.5-4.9); POTASSIUM 3.3 mmol/L (3.5-5.1); TOTAL PROTEIN, SERUM 9.9 g/dL (6.4-8.2)
[2023-04-13 06:51] LABS: ALBUMIN 1.2 g/dL (3.4-5.0)
[2023-04-13 08:00] VITALS: BP 94/71; TEMP 98.9
[2023-04-13] MEDS: CEFEPIME 1 GM in IV D5W 50 ML IV SCH (08:35)
[2023-04-13] MEDS: PANTOPRAZOLE 40 MG TABLET.DR PO SCH (08:35)
[2023-04-13] MEDS: FERROUS SULFATE (325 MG) 325 MG/TAB TABLET PO SCH (08:36)
[2023-04-13] MEDS: ASPIRIN EC 81 MG TABLET.DR PO SCH (08:36)
[2023-04-13] MEDS: DAKINS QUARTER STRENGTH (0.125%) 480 ML BOTTLE TOP SCH ×3 (08:40→11:48)
[2023-04-13] MEDS ORDERED: VIT B CMPLX 3/FA/VIT C/BIOTIN 1 TAB TABLET PO SCH (09:00)
[2023-04-13] MEDS ORDERED: ZINC SULFATE 220 MG CAPSULE PO SCH (09:00)
[2023-04-13] MEDS ORDERED: MAGNESIUM HYDROXIDE 30 ML UDC GT PRN (09:10)
[2023-04-13] MEDS ORDERED: HYDROCODONE/APAP 5/325MG TABLET GT PRN (09:11)
[2023-04-13] MEDS ORDERED: MAG HYDROX/AL HYDROX/SIMETH 30 ML UDC GT PRN (09:11)
[2023-04-13] MEDS ORDERED: POTASSIUM CHLORIDE 20 MEQ POWDER PACKET GT SCH ×2 (09:30→12:00)
[2023-04-13] MEDS ORDERED: ACETAMINOPHEN 650 MG/20.3 ML UDC GT PRN (09:30)
[2023-04-13] MEDS: THERAHONEY GEL 1.5 OZ TUBE TP SCH (11:54)
[2023-04-13 12:00] VITALS: BP 102/80; TEMP 98.7; O2SAT 100
[2023-04-13] MEDS: IV NS 0.9% 1,000 ML IV PRN (12:34)
[2023-04-13 16:00] VITALS: BP 98/69; TEMP 98.8; O2SAT 99
[2023-04-13] MEDS: MEROPENEM 1 G in IV NS 0.9% 100 ML IV SCH (18:05)
[2023-04-13] MEDS: FERROUS SULFATE (325 MG) 325 MG/TAB TABLET GT SCH (18:05)
[2023-04-13 20:00] VITALS: BP 94/62; TEMP 98.6; O2SAT 99
[2023-04-13] MEDS: ENOXAPARIN SODIUM 40 MG/0.4 ML DISP.SYRIN SQ SCH (21:47)
[2023-04-14] VITALS: BP 90/68; TEMP 98.6; O2SAT 100
[2023-04-14] MEDS: NEPRO 1,000 ML BOTTLE GT PRN (00:02)
[2023-04-14 04:00] VITALS: BP 108/64; TEMP 96.8; O2SAT 100
[2023-04-14] MEDS: MEROPENEM 1 G in IV NS 0.9% 100 ML IV SCH ×2 (05:15→16:27)
[2023-04-14] MEDS: IV NS 0.9% 1,000 ML IV PRN ×2 (05:20→18:14)
[2023-04-14 07:04] LABS: BASOPHILS % (AUTO) 0.2 % (0.0-2.0); EOSINOPHILS # (AUTO) 0.2 K/uL (0.0-0.7); EOSINOPHILS % (AUTO) 2.1 % (0.0-6.0); HEMATOCRIT 25 % (39-51); HEMOGLOBIN 7.8 g/dL (13.5-17.5); LYMPHOCYTES # (AUTO) 1.5 K/uL (0.8-4.8); LYMPHOCYTES % (AUTO) 17.7 % (20.0-44.0); MEAN CORPUSCULAR HEMOGLOBIN 27 PG (26.0-33.0); MEAN CORPUSCULAR HGB CONC 31 g/dl (31.0-36.0); MEAN CORPUSCULAR VOLUME 88 fL (80-96); MONOCYTES # (AUTO) 0.8 K/uL (0.1-1.30); MONOCYTES % (AUTO) 8.8 % (2.0-12.0); NEUTROPHILS # (AUTO) 6.1 K/uL (1.8-8.9); NEUTROPHILS % (AUTO) 71.2 % (43.0-81.0); PLATELET COUNT (AUTO) 634 K/uL (150-450); RED BLOOD CELL COUNT(AUTO) 2.88 MIL/uL (4.5-6.0); RED CELL DISTRIBUTION WIDTH 18.4 % (11.5-15.0); WHITE BLOOD COUNT (AUTO) 8.6 K/uL (4.3-11.0)
[2023-04-14 07:43] LABS: BILIRUBIN,TOTAL 0.2 mg/dL (0.2-1.0); CALCIUM, SERUM 11.2 mg/dL (8.5-10.1); CREATININE 1.6 mg/dL (0.6-1.3); MAGNESIUM 2.3 mg/dL (1.8-2.4); PHOSPHORUS 3.4 mg/dL (2.5-4.9); POTASSIUM 3.6 mmol/L (3.5-5.1); TOTAL PROTEIN, SERUM 9.3 g/dL (6.4-8.2)
[2023-04-14] MEDS: PANTOPRAZOLE 40 MG/PACK PACK GT SCH (07:47)
[2023-04-14 08:00] VITALS: BP 105/71; TEMP 99.5; O2SAT 100
[2023-04-14 08:06] LABS: ALBUMIN 1.2 g/dL (3.4-5.0)
[2023-04-14 08:07] LABS: *SPE A/G RATIO 0.2 (0.7-1.7); *SPE ALBUMIN 1.7 g/dL (2.9-4.4); *SPE ALPHA-1-GLOBULIN 0.4 g/dL (0.0-0.4); *SPE ALPHA-2-GLOBULIN 0.9 g/dL (0.4-1.0); *SPE BETA GLOBULIN 1.3 g/dL (0.7-1.3); *SPE GLOBULIN, TOTAL 7.3 g/dL (2.2-3.9); *SPE M-SPIKE Not Observed g/dL (Not Observed); *SPEGAMMA GLOBULIN 4.7 g/dL (0.4-1.8)
[2023-04-14] MEDS ORDERED: VANCOMYCIN 1 GM in IV D5W 250ml IV SCH (09:00)
[2023-04-14] MEDS: ZINC SULFATE 220 MG CAPSULE GT SCH (09:05)
[2023-04-14] MEDS: VIT B CMPLX 3/FA/VIT C/BIOTIN 1 TAB TABLET GT SCH (09:05)
[2023-04-14] MEDS: ASPIRIN 81 MG TAB.CHEW GT SCH (09:05)
[2023-04-14] MEDS: DAKINS QUARTER STRENGTH (0.125%) 480 ML BOTTLE TOP SCH (09:06)
[2023-04-14] MEDS: FERROUS SULFATE (325 MG) 325 MG/TAB TABLET GT SCH ×2 (09:06→16:27)
[2023-04-14] MEDS: THERAHONEY GEL 1.5 OZ TUBE TP SCH (09:07)
[2023-04-14 12:00] VITALS: BP 96/60; TEMP 98.9; O2SAT 100
[2023-04-14] MEDS: PROSOURCE / PROSTAT (PYXIS) 30 ML UDC GT SCH ×2 (12:12→16:27)
[2023-04-14 16:00] VITALS: BP 107/72; TEMP 98.8; O2SAT 100
[2023-04-14 20:00] VITALS: BP 106/70; TEMP 97.8; O2SAT 100
[2023-04-14] MEDS: ENOXAPARIN SODIUM 40 MG/0.4 ML DISP.SYRIN SQ SCH (20:52)
[2023-04-15] VITALS: BP 104/70; TEMP 97.9; O2SAT 100
[2023-04-15] MEDS: NEPRO 1,000 ML BOTTLE GT PRN (03:22)
[2023-04-15] MEDS: MEROPENEM 1 G in IV NS 0.9% 100 ML IV SCH ×2 (04:16→16:10)
[2023-04-15 06:30] VITALS: BP 100/65; TEMP 97.9; O2SAT 100
[2023-04-15 06:49] LABS: BASOPHILS % (AUTO) 0.4 % (0.0-2.0); EOSINOPHILS # (AUTO) 0.2 K/uL (0.0-0.7); EOSINOPHILS % (AUTO) 2.5 % (0.0-6.0); HEMATOCRIT 28 % (39-51); HEMOGLOBIN 8.4 g/dL (13.5-17.5); LYMPHOCYTES # (AUTO) 1.5 K/uL (0.8-4.8); LYMPHOCYTES % (AUTO) 19.9 % (20.0-44.0); MEAN CORPUSCULAR HEMOGLOBIN 27 PG (26.0-33.0); MEAN CORPUSCULAR HGB CONC 30 g/dl (31.0-36.0); MEAN CORPUSCULAR VOLUME 89 fL (80-96); MONOCYTES # (AUTO) 0.5 K/uL (0.1-1.30); MONOCYTES % (AUTO) 6.2 % (2.0-12.0); NEUTROPHILS # (AUTO) 5.3 K/uL (1.8-8.9); PLATELET COUNT (AUTO) 596 K/uL (150-450); RED BLOOD CELL COUNT(AUTO) 3.13 MIL/uL (4.5-6.0); WHITE BLOOD COUNT (AUTO) 7.5 K/uL (4.3-11.0)
[2023-04-15] MEDS ORDERED: LIDOCAINE 1%-EPI 1:200,000 SDV 10 ML VIAL IJ ONE (07:30)
[2023-04-15] MEDS ORDERED: SILVER NITRATE APPLICATOR 1 EA BOX TP PRN (07:30)
[2023-04-15 07:39] LABS: BILIRUBIN,TOTAL 0.2 mg/dL (0.2-1.0); CALCIUM, SERUM 10.6 mg/dL (8.5-10.1); CREATININE 1.3 mg/dL (0.6-1.3); MAGNESIUM 2.3 mg/dL (1.8-2.4); PHOSPHORUS 2.9 mg/dL (2.5-4.9); POTASSIUM 3.4 mmol/L (3.5-5.1)
[2023-04-15 08:00] VITALS: BP 104/72; TEMP 98.2; O2SAT 100
[2023-04-15] MEDS: VIT B CMPLX 3/FA/VIT C/BIOTIN 1 TAB TABLET GT SCH (08:08)
[2023-04-15] MEDS: PANTOPRAZOLE 40 MG/PACK PACK GT SCH (08:08)
[2023-04-15] MEDS: FERROUS SULFATE (325 MG) 325 MG/TAB TABLET GT SCH ×2 (08:08→16:10)
[2023-04-15] MEDS: ZINC SULFATE 220 MG CAPSULE GT SCH (08:08)
[2023-04-15] MEDS: ASPIRIN 81 MG TAB.CHEW GT SCH (08:08)
[2023-04-15] MEDS: PROSOURCE / PROSTAT (PYXIS) 30 ML UDC GT SCH ×3 (08:09→16:52)
[2023-04-15] MEDS: THERAHONEY GEL 1.5 OZ TUBE TP SCH (08:20)
[2023-04-15] MEDS: DAKINS QUARTER STRENGTH (0.125%) 480 ML BOTTLE TOP SCH ×2 (08:20)
[2023-04-15 08:36] LABS: ALBUMIN 1.1 g/dL (3.4-5.0)
[2023-04-15] MEDS: IV NS 0.9% 1,000 ML IV PRN (09:21)
[2023-04-15] MEDS ORDERED: POTASSIUM CHLORIDE 20 MEQ POWDER PACKET NG SCH (10:30)
[2023-04-15 12:00] VITALS: BP 98/68; TEMP 97.5; O2SAT 100
[2023-04-15] MEDS ORDERED: IV NS 0.9% 1,000 ML IV PRN (12:44)
[2023-04-15 16:00] VITALS: BP 97/79; TEMP 97.6; O2SAT 100
[2023-04-15] MEDS ORDERED: FERROUS SULFATE (325 MG) 325 MG/TAB TABLET GT SCH (17:00)
[2023-04-15] MEDS ORDERED: ALBUTEROL FS 2.5 MG/3 ML VIAL.NEB NEB PRN (17:00)
[2023-04-15] MEDS: ARGININE/GLUTAMINE/CALCIUM BMB 1 EACH POWD.PACK GT SCH (17:15)
[2023-04-15] MEDS ORDERED: ASCORBIC ACID 500 MG TABLET GT SCH (18:00)
[2023-04-15] MEDS ORDERED: PROSOURCE / PROSTAT (PYXIS) 30 ML UDC GT SCH (18:00)
[2023-04-15] MEDS ORDERED: MULTIVIT W/MINERALS 1 TAB TABLET GT SCH (18:00)
[2023-04-15 20:00] VITALS: BP 106/71; TEMP 98.2; O2SAT 100
[2023-04-15] MEDS: ENOXAPARIN SODIUM 40 MG/0.4 ML DISP.SYRIN SQ SCH (20:34)
[2023-04-15] MEDS: CHLORHEXIDINE GLUCONATE 15 ML UDC MM SCH (20:34)
[2023-04-15] MEDS: MIDODRINE HCL (5MG) 5 MG TABLET GT SCH (20:36)
[2023-04-16] VITALS: BP 111/3; TEMP 98.4; O2SAT 100
[2023-04-16 04:00] VITALS: BP 108/83; TEMP 97.6; O2SAT 100
[2023-04-16] MEDS: MEROPENEM 1 G in IV NS 0.9% 100 ML IV SCH (04:41)
[2023-04-16] MEDS: MIDODRINE HCL (5MG) 5 MG TABLET GT SCH ×2 (04:51→12:32)
[2023-04-16 08:00] VITALS: BP 111/82; TEMP 98.7; O2SAT 100
[2023-04-16] MEDS: PROSOURCE / PROSTAT (PYXIS) 30 ML UDC GT SCH ×2 (08:04→12:32)
[2023-04-16 08:09] LABS: BASOPHILS # (AUTO) 0.1 K/uL (0.0-0.2); BASOPHILS % (AUTO) 0.6 % (0.0-2.0); EOSINOPHILS # (AUTO) 0.2 K/uL (0.0-0.7); EOSINOPHILS % (AUTO) 2.4 % (0.0-6.0); HEMATOCRIT 27 % (39-51); HEMOGLOBIN 8.4 g/dL (13.5-17.5); LYMPHOCYTES # (AUTO) 1.8 K/uL (0.8-4.8); LYMPHOCYTES % (AUTO) 21.1 % (20.0-44.0); MEAN CORPUSCULAR HEMOGLOBIN 27 PG (26.0-33.0); MEAN CORPUSCULAR HGB CONC 31 g/dl (31.0-36.0); MEAN CORPUSCULAR VOLUME 87 fL (80-96); MONOCYTES # (AUTO) 0.6 K/uL (0.1-1.30); MONOCYTES % (AUTO) 6.7 % (2.0-12.0); NEUTROPHILS % (AUTO) 69.2 % (43.0-81.0); PLATELET COUNT (AUTO) 595 K/uL (150-450); RED BLOOD CELL COUNT(AUTO) 3.12 MIL/uL (4.5-6.0); RED CELL DISTRIBUTION WIDTH 18.6 % (11.5-15.0); WHITE BLOOD COUNT (AUTO) 8.7 K/uL (4.3-11.0)
[2023-04-16] MEDS: DAKINS QUARTER STRENGTH (0.125%) 480 ML BOTTLE TOP SCH ×2 (08:09→08:19)
[2023-04-16] MEDS: THERAHONEY GEL 1.5 OZ TUBE TP SCH (08:09)
[2023-04-16 08:13] LABS: CALCIUM, SERUM 10.1 mg/dL (8.5-10.1); CREATININE 1.1 mg/dL (0.6-1.3); POTASSIUM 3.6 mmol/L (3.5-5.1)
[2023-04-16] MEDS: ARGININE/GLUTAMINE/CALCIUM BMB 1 EACH POWD.PACK GT SCH (08:14)
[2023-04-16] MEDS: PANTOPRAZOLE 40 MG/PACK PACK GT SCH (08:15)
[2023-04-16] MEDS: ASPIRIN 81 MG TAB.CHEW GT SCH (08:15)
[2023-04-16] MEDS: FERROUS SULFATE (325 MG) 325 MG/TAB TABLET GT SCH (08:15)
[2023-04-16] MEDS: CHLORHEXIDINE GLUCONATE 15 ML UDC MM SCH (08:15)
[2023-04-16] MEDS: VIT B CMPLX 3/FA/VIT C/BIOTIN 1 TAB TABLET GT SCH (08:15)
[2023-04-16] MEDS ORDERED: ZINC SULFATE 220 MG CAPSULE GT SCH (09:00)
[2023-04-16] MEDS ORDERED: POLYETHYLENE GLYCOL 3350 17 GM POWD.PACK GT SCH (09:00)
[2023-04-16] MEDS ORDERED: VANCOMYCIN 1 GM in IV D5W 250ml IV SCH (09:00)
[2023-04-16 12:32] VITALS: BP 95/65
[2023-04-16] MEDS ORDERED: MERO1VIA23 IV (13:07)
[2023-04-16] MEDS ORDERED: VANC1PLA9 IV (13:07)
[2023-04-16] MEDS ORDERED: EPOETIN ALFA-EPBX 2,000 UNIT/ML VIAL SQ SCH (15:00)
[2023-04-16 17:06] LABS: IMMUNOGLOBULIN M, SERUM 103 mg/dL (20-172)
== END 2023-04-16 14:57 | DRG 710 ==
LOC: ER 14:18 → TELE1 16:11
PROVIDERS: ATTEND Nurse Practitioner Family
PROC: 5A1955Z Respiratory Ventilation, Greater than 96 Consecutive Hours (ICD-10-PCS; principal; 2023-04-09)
PROC: 0KBR0ZZ Excision of Left Upper Leg Muscle, Open Approach (ICD-10-PCS; 2023-04-10)
PROC: 0KBN0ZZ Excision of Right Hip Muscle, Open Approach (ICD-10-PCS; 2023-04-15)
PROC: 0QB10ZZ Excision of Sacrum, Open Approach (ICD-10-PCS; 2023-04-15)
PROC: 0KBR0ZZ Excision of Left Upper Leg Muscle, Open Approach (ICD-10-PCS; 2023-04-15)
PROC: 0KBT0ZZ Excision of Left Lower Leg Muscle, Open Approach (ICD-10-PCS; 2023-04-15)
PROC: 0JBM0ZZ Excision of Left Upper Leg Subcutaneous Tissue and Fascia, Open Approach (ICD-10-PCS; 2023-04-15)
DX: A41.02 Sepsis due to Methicillin resistant Staphylococcus aureus (principal); N17.0 Acute kidney failure with tubular necrosis; G93.40 Encephalopathy, unspecified; E43 Unspecified severe protein-calorie malnutrition; L89.154 Pressure ulcer of sacral region, stage 4; J15.6 Pneumonia due to other Gram-negative bacteria; J90 Pleural effusion, not elsewhere classified; R64 Cachexia; L89.224 Pressure ulcer of left hip, stage 4; L89.214 Pressure ulcer of right hip, stage 4; L89.310 Pressure ulcer of right buttock, unstageable; D68.59 Other primary thrombophilia; R53.2 Functional quadriplegia; J96.10 Chronic respiratory failure, unspecified whether with hypoxia or hypercapnia; Z93.0 Tracheostomy status; Z99.11 Dependence on respirator [ventilator] status; L02.416 Cutaneous abscess of left lower limb; Z20.822 Contact with and (suspected) exposure to COVID-19; Z87.820 Personal history of traumatic brain injury; Z93.1 Gastrostomy status; R13.10 Dysphagia, unspecified; Z74.01 Bed confinement status; R26.9 Unspecified abnormalities of gait and mobility; M62.50 Muscle wasting and atrophy, not elsewhere classified, unspecified site; M62.40 Contracture of muscle, unspecified site; M19.90 Unspecified osteoarthritis, unspecified site; Z88.8 Allergy status to other drugs, medicaments and biological substances; Z79.899 Other long term (current) drug therapy; Z79.51 Long term (current) use of inhaled steroids; F09 Unspecified mental disorder due to known physiological condition; E88.09 Other disorders of plasma-protein metabolism, not elsewhere classified; Z87.442 Personal history of urinary calculi; N20.0 Calculus of kidney; I12.9 Hypertensive chronic kidney disease with stage 1 through stage 4 chronic kidney disease, or unspecified chronic kidney disease; D64.9 Anemia, unspecified; D75.839 Thrombocytosis, unspecified; D73.5 Infarction of spleen; K80.20 Calculus of gallbladder without cholecystitis without obstruction; M86.48 Chronic osteomyelitis with draining sinus, other site; E86.9 Volume depletion, unspecified; N39.0 Urinary tract infection, site not specified; E83.39 Other disorders of phosphorus metabolism; E83.41 Hypermagnesemia; E87.1 Hypo-osmolality and hyponatremia; M89.8X9 Other specified disorders of bone, unspecified site; N18.9 Chronic kidney disease, unspecified; Z87.19 Personal history of other diseases of the digestive system; R33.9 Retention of urine, unspecified; B96.89 Other specified bacterial agents as the cause of diseases classified elsewhere; B95.62 Methicillin resistant Staphylococcus aureus infection as the cause of diseases classified elsewhere; L89.890 Pressure ulcer of other site, unstageable; J98.11 Atelectasis
CPT/HCPCS: 31720; 36415; 71045-TC; 71250-TC; 76770-TC; 80048-TC; 80053-TC; 80061-TC; 80076-TC; 80202-TC; 81001; 82040-TC; 82306; 82378; 82570-TC; 82607-TC; 82728-TC; 82784; 83540-TC; 83605-TC; 83735-TC; 83970; 84100-TC; 84155; 84165; 84300-TC; 84443-TC; 84484-TC; 85025-TC; 85730-TC; 86334; 87040-TC; 87081-TC; 87086-TC; 93307-TC; 94002-TC; 94003-TC; 94760-TC; 94762-TC; 94799-TC; 99082-TC; A4217; A4223; A6253; A6403; G0378; J0690; J0692; J0885; J1650; J2185; J2430; J2543; J3370; J3490; J7030; J7040; J7060

== ENCOUNTER 2023-07-30 13:07 | Inpatient (IN) | payer OTHER ==
[~2023-07-30] VITALS: Ht 182.9 cm; Wt 59.0 kg
[~2023-07-30 13:07] MED LIST changes: +ACET650S26 GT; -AMLO5TAB4 GT; -ASCO500C17 GT; +ASCO500T10 GT; +CALCIUM ALGINATE TD; +CRAN3875 GT; +FURO-145 GT; -LACT250L14 GT; +MERO1VIA23 IV; +MIDO5TAB4 GT; +NUTR250L50 GT; +PANT40SU2 GT; +POLY17PO4 GT; +POVI3780 TP; +SODI480S2 TOP; +VANC1PLA9 IV
[2023-07-30 14:25] LABS: BASOPHILS % (AUTO) 0.1 % (0.0-2.0); EOSINOPHILS # (AUTO) 0.1 K/uL (0.0-0.7); EOSINOPHILS % (AUTO) 0.3 % (0.0-6.0); HEMATOCRIT 27 % (39-51); HEMOGLOBIN 8.8 g/dL (13.5-17.5); LYMPHOCYTES # (AUTO) 1.3 K/uL (0.8-4.8); LYMPHOCYTES % (AUTO) 5.9 % (20.0-44.0); MEAN CORPUSCULAR HEMOGLOBIN 29 PG (26.0-33.0); MEAN CORPUSCULAR HGB CONC 32 g/dl (31.0-36.0); MEAN CORPUSCULAR VOLUME 90 fL (80-96); MONOCYTES % (AUTO) 4.6 % (2.0-12.0); NEUTROPHILS # (AUTO) 19.7 K/uL (1.8-8.9); NEUTROPHILS % (AUTO) 89.1 % (43.0-81.0); PLATELET COUNT (AUTO) 509 K/uL (150-450); RED BLOOD CELL COUNT(AUTO) 3.03 MIL/uL (4.5-6.0); RED CELL DISTRIBUTION WIDTH 18.1 % (11.5-15.0); WHITE BLOOD COUNT (AUTO) 22.1 K/uL (4.3-11.0)
[2023-07-30 14:58] LABS: CREATININE 2.4 mg/dL (0.6-1.3); POTASSIUM 4.5 mmol/L (3.5-5.1)
[2023-07-30] MEDS ORDERED: FERR220S2 GT (14:58)
[2023-07-30] MEDS ORDERED: GEL100GE TP (14:58)
[2023-07-30] MEDS ORDERED: BISA10SU11 RC (14:58)
[2023-07-30] MEDS ORDERED: DOCU100T2 GT (14:58)
[2023-07-30] MEDS ORDERED: PETR113O TP (14:58)
[2023-07-30] MEDS ORDERED: ALBU2.5V38 IH (14:58)
[2023-07-30] MEDS ORDERED: LACT100027 GT (14:58)
[2023-07-30] MEDS ORDERED: COLL30OI TP (14:58)
[2023-07-30] MEDS ORDERED: ALBU2.5V38 NEB (14:58)
[2023-07-30] MEDS ORDERED: ACET650S26 GT ×2 (14:58)
[2023-07-30] MEDS ORDERED: COLLAGEN POWDER TP (14:58)
[2023-07-30 15:07] LABS: CALCIUM, SERUM 14.1 mg/dL (8.5-10.1)
[2023-07-30 15:15] LABS: BILIRUBIN,DIRECT 0.2 mg/dL (0.0-0.2); BILIRUBIN,TOTAL 0.4 mg/dL (0.2-1.0)
[2023-07-30 15:16] LABS: ALBUMIN 1.4 g/dL (3.4-5.0); TOTAL PROTEIN, SERUM 10.4 g/dL (6.4-8.2)
[2023-07-30] MEDS ORDERED: IV NS 0.9% 1,000 ML BAG IV ONE (16:00)
[2023-07-30] MEDS ORDERED: AZITHROMYCIN 500 MG in IV D5W 250 ML IV ONE (16:00)
[2023-07-30] MEDS ORDERED: PIPERACILLIN /TAZOBACTAM 3.375 G in IV D5W 50 ML IV ONE (16:00)
[2023-07-30] MEDS ORDERED: VANCOMYCIN 1 GM in IV D5W 250 ML IV ONE (16:00)
[2023-07-30 20:00] VITALS: BP 93/56; TEMP 97.9; O2SAT 100
[2023-07-30 21:07] LABS: BAND % (MANUAL) 1 % (0.0-5.0); EOSINOPHILS % (MANUAL) 1 % (0-4); LYMPHOCYTES % (MANUAL) 6 % (16-48); MONOCYTES % (MANUAL) 2 % (0-11.0); NEUTROPHILS % (MANUAL) 90 (42-76); PLATELET ESTIMATE INCREASED
[2023-07-30] MEDS ORDERED: ONDANSETRON HCL/PF 4 MG/2 ML VIAL IVP PRN (21:30)
[2023-07-30] MEDS ORDERED: Z GUARD REMEDY 4 OZ OINT TP PRN (21:30)
[2023-07-30] MEDS ORDERED: MORPHINE SULFATE INJ 2 MG/ML DISP.SYRIN IV PRN (21:30)
[2023-07-30] MEDS ORDERED: hydrALAZINE HCL IV 20 MG VIAL IV PRN (21:30)
[2023-07-30] MEDS ORDERED: ALBUTEROL FS 2.5 MG/0.5 ML VIAL.NEB NEB PRN (21:30)
[2023-07-30] MEDS ORDERED: EPOETIN ALFA-EPBX 10,000 UNIT/ML VIAL SQ SCH (21:30)
[2023-07-30] MEDS ORDERED: TRAMADOL HCL 50 MG TABLET GT PRN (21:30)
[2023-07-30] MEDS ORDERED: CEFEPIME 1 GM in IV D5W 50 ML IV ONE (22:00)
[2023-07-30] MEDS ORDERED: CEFEPIME 1 GM VIAL ONE (23:35)
[2023-07-31] VITALS (80 sets, daily range): BP systolic 79–125; BP diastolic 40–83; TEMP 98–101.2; O2SAT 85–100
[2023-07-31] MEDS ORDERED: IPRATROPIUM/ALBUTEROL INHALER IH SCH
[2023-07-31] MEDS ORDERED: IV NS 0.9% 1,000 ML BAG IV ONE (00:12)
[2023-07-31] MEDS: ACETAMINOPHEN 325 MG TABLET PO PRN ×3 (00:32→21:17)
[2023-07-31] MEDS: IPRATROPIUM NEB FS 0.5 MG/2.5 ML AMPUL.NEB IH SCH ×4 (01:41→19:42)
[2023-07-31] MEDS: ALBUTEROL FS 2.5 MG/0.5 ML VIAL.NEB NEB SCH ×4 (01:41→19:42)
[2023-07-31] MEDS: NOREPINEPHRINE 8 MG in IV NS 0.9% 242 ML IV PRN ×2 (02:28→20:12)
[2023-07-31] MEDS ORDERED: JEVITY 1.2 CAL 1,000 ML BOTTLE GT PRN (03:00)
[2023-07-31] MEDS ORDERED: NOREPINEPHRINE 8MG/250ML RTU 250 ML IV ONE (03:01)
[2023-07-31 04:29] LABS: BASOPHILS % (AUTO) 0.2 % (0.0-2.0); HEMATOCRIT 23 % (39-51); HEMOGLOBIN 7.6 g/dL (13.5-17.5); LYMPHOCYTES # (AUTO) 1.4 K/uL (0.8-4.8); LYMPHOCYTES % (AUTO) 5.9 % (20.0-44.0); MEAN CORPUSCULAR HEMOGLOBIN 29 PG (26.0-33.0); MEAN CORPUSCULAR HGB CONC 33 g/dl (31.0-36.0); MEAN CORPUSCULAR VOLUME 87 fL (80-96); MONOCYTES # (AUTO) 1.2 K/uL (0.1-1.30); MONOCYTES % (AUTO) 4.9 % (2.0-12.0); NEUTROPHILS # (AUTO) 20.8 K/uL (1.8-8.9); PLATELET COUNT (AUTO) 534 K/uL (150-450); RED BLOOD CELL COUNT(AUTO) 2.63 MIL/uL (4.5-6.0); RED CELL DISTRIBUTION WIDTH 18.5 % (11.5-15.0); WHITE BLOOD COUNT (AUTO) 23.4 K/uL (4.3-11.0)
[2023-07-31 04:45] LABS: BILIRUBIN,TOTAL 0.7 mg/dL (0.2-1.0); CALCIUM, SERUM 12.6 mg/dL (8.5-10.1); CREATININE 2.2 mg/dL (0.6-1.3); MAGNESIUM 2.2 mg/dL (1.8-2.4); PHOSPHORUS 3.4 mg/dL (2.5-4.9); POTASSIUM 3.5 mmol/L (3.5-5.1); TOTAL PROTEIN, SERUM 9.1 g/dL (6.4-8.2)
[2023-07-31 05:15] LABS: ALBUMIN 1.2 g/dL (3.4-5.0)
[2023-07-31] MEDS: MIDODRINE HCL (5MG) 5 MG TABLET GT SCH ×3 (05:28→21:16)
[2023-07-31] MEDS: DOCUSATE SODIUM LIQ 100 MG/10 ML UDC PO SCH ×2 (08:58→17:26)
[2023-07-31] MEDS: CHLORHEXIDINE GLUCONATE 15 ML UDC MM SCH ×2 (08:59→21:16)
[2023-07-31] MEDS: PANTOPRAZOLE 40 MG/PACK PACK GT SCH ×2 (08:59→17:26)
[2023-07-31] MEDS: POLYETHYLENE GLYCOL 3350 17 GM POWD.PACK PO SCH (08:59)
[2023-07-31] MEDS ORDERED: HEPARIN SODIUM, PORCINE 5000 UNITS/1 ML VIAL SQ SCH (09:00)
[2023-07-31] MEDS ORDERED: FUROSEMIDE 20 MG TABLET GT SCH (09:00)
[2023-07-31] MEDS ORDERED: FERROUS SULFATE - FOR SA ONLY 330 MG/7.5 ML UDC GT SCH (09:00)
[2023-07-31] MEDS: THERAHONEY GEL 1.5 OZ TUBE TP SCH ×3 (09:06→21:17)
[2023-07-31] MEDS: DAKINS QUARTER STRENGTH (0.125%) 480 ML BOTTLE TOP SCH ×2 (09:06→14:41)
[2023-07-31] MEDS: CEFEPIME 2 GM in IV D5W 100 ML IV SCH ×2 (09:08→20:12)
[2023-07-31] MEDS: FERROUS SULFATE UDC 300 MG/5 ML UDC GT SCH ×2 (09:17→17:26)
[2023-07-31] MEDS: IV NS 0.9% 1,000 ML IV SCH ×2 (10:05→22:23)
[2023-07-31] MEDS: VANCOMYCIN 1 GM in IV D5W 250 ML IV SCH (14:41)
[2023-07-31] MEDS ORDERED: EPOETIN ALFA-EPBX 2,000 UNIT/ML VIAL SQ SCH (15:00)
[2023-07-31 21:10] LABS: APPEARANCE,URINE CLOUDY (CLEAR); BILIRUBIN,URINE NEGATIVE (NEGATIVE); BLOOD, URINE 2+ Ery/uL (NEGATIVE); COLOR,URINE YELLOW (YELLOW); KETONES,URINE NEGATIVE (NEGATIVE); LEUKOCYTE ESTERASE ,URINE 3+ (NEGATIVE); NITRITE, URINE NEGATIVE (NEGATIVE); PROTEIN,URINE 2+ mg/dl (NEGATIVE); UGLUCOSE NEGATIVE (NEGATIVE); UROBILINOGEN,URINE 0.2 EU/dL (0.2)
[2023-07-31 21:20] LABS: CREATININE, URINE 27.4 MG/DL (30.0-125.0); URINE TOTAL PROTEIN 176.1 mg/dL (0-11.9)
[2023-07-31 21:36] LABS: ADD URINE CULTURE YES; BACTERIA,URINE 4+ /HPF (None Seen); SQUAMOUS EPITHELIAL CELL,UR None Seen /HPF (None Seen); WBC,URINE TOO NUMEROUS TO COUN /HPF (0-3)
[2023-07-31 21:37] LABS: CALCIUM OXALATE CRYSTALS,UR Moderate /HPF (None Seen); MUCUS,URINE Moderate /LPF (None Seen)
[2023-07-31 22:44] LABS: EOSINOPHIL,URINE None Seen
[2023-08-01] VITALS (94 sets, daily range): BP systolic 92–114; BP diastolic 57–73; TEMP 99.6–100.5; O2SAT 97–100
[2023-08-01] MEDS: IPRATROPIUM NEB FS 0.5 MG/2.5 ML AMPUL.NEB IH SCH ×4 (01:25→19:37)
[2023-08-01] MEDS: ALBUTEROL FS 2.5 MG/0.5 ML VIAL.NEB NEB SCH ×4 (01:26→19:37)
[2023-08-01 05:05] LABS: BILIRUBIN,TOTAL 0.5 mg/dL (0.2-1.0); CALCIUM, SERUM 12.4 mg/dL (8.5-10.1); CREATININE 2.1 mg/dL (0.6-1.3); MAGNESIUM 2.3 mg/dL (1.8-2.4); PHOSPHORUS 3.8 mg/dL (2.5-4.9); POTASSIUM 3.5 mmol/L (3.5-5.1)
[2023-08-01] MEDS: MIDODRINE HCL (5MG) 5 MG TABLET GT SCH ×2 (05:12→12:42)
[2023-08-01] MEDS: ACETAMINOPHEN 325 MG TABLET PO PRN (05:13)
[2023-08-01 05:24] LABS: BASOPHILS % (AUTO) 0.1 % (0.0-2.0); EOSINOPHILS # (AUTO) 0.1 K/uL (0.0-0.7); EOSINOPHILS % (AUTO) 0.4 % (0.0-6.0); HEMATOCRIT 24 % (39-51); HEMOGLOBIN 7.5 g/dL (13.5-17.5); LYMPHOCYTES # (AUTO) 1.5 K/uL (0.8-4.8); LYMPHOCYTES % (AUTO) 6.2 % (20.0-44.0); MEAN CORPUSCULAR HEMOGLOBIN 28 PG (26.0-33.0); MEAN CORPUSCULAR HGB CONC 32 g/dl (31.0-36.0); MEAN CORPUSCULAR VOLUME 89 fL (80-96); MONOCYTES # (AUTO) 1.4 K/uL (0.1-1.30); MONOCYTES % (AUTO) 5.9 % (2.0-12.0); NEUTROPHILS # (AUTO) 21.5 K/uL (1.8-8.9); NEUTROPHILS % (AUTO) 87.4 % (43.0-81.0); PLATELET COUNT (AUTO) 556 K/uL (150-450); RED BLOOD CELL COUNT(AUTO) 2.65 MIL/uL (4.5-6.0); RED CELL DISTRIBUTION WIDTH 17.9 % (11.5-15.0); WHITE BLOOD COUNT (AUTO) 24.6 K/uL (4.3-11.0)
[2023-08-01 05:26] LABS: ALBUMIN 1.2 g/dL (3.4-5.0)
[2023-08-01] MEDS: CEFEPIME 2 GM in IV D5W 100 ML IV SCH (08:49)
[2023-08-01] MEDS: CHLORHEXIDINE GLUCONATE 15 ML UDC MM SCH (08:50)
[2023-08-01] MEDS: PANTOPRAZOLE 40 MG/PACK PACK GT SCH ×2 (08:50→17:19)
[2023-08-01] MEDS: POLYETHYLENE GLYCOL 3350 17 GM POWD.PACK PO SCH (08:50)
[2023-08-01] MEDS: DOCUSATE SODIUM LIQ 100 MG/10 ML UDC PO SCH ×2 (08:50→17:20)
[2023-08-01] MEDS: FERROUS SULFATE UDC 300 MG/5 ML UDC GT SCH ×2 (08:50→17:20)
[2023-08-01] MEDS: DAKINS QUARTER STRENGTH (0.125%) 480 ML BOTTLE TOP SCH ×2 (08:51→08:56)
[2023-08-01] MEDS ORDERED: THERAHONEY GEL 1.5 OZ TUBE TP SCH (09:00)
[2023-08-01] MEDS ORDERED: FUROSEMIDE 40 MG TABLET GT SCH (09:00)
[2023-08-01] MEDS: THERAHONEY GEL 1.5 OZ TUBE TP SCH ×2 (09:00)
[2023-08-01] MEDS ORDERED: IV NS 0.9% 1,000 ML IV PRN (09:21)
[2023-08-01] MEDS: VANCOMYCIN 1 GM in IV D5W 250 ML IV SCH (14:46)
[2023-08-01] MEDS ORDERED: ARGININE/GLUTAMINE/CALCIUM BMB 1 EACH POWD.PACK GT SCH (17:00)
[2023-08-01] MEDS ORDERED: PROSOURCE / PROSTAT (PYXIS) 30 ML UDC GT SCH (17:00)
[2023-08-01] MEDS: MORPHINE SULFATE PF DRIP 100 MG in IV D5W 96 ML IV PRN (21:05)
[2023-08-02] VITALS (36 sets, daily range): BP systolic 68–90; BP diastolic 48–64; TEMP 97–99.4; O2SAT 92–100
[2023-08-02] MEDS: MORPHINE SULFATE PF DRIP 100 MG in IV D5W 96 ML IV PRN ×2 (08:38→18:20)
[2023-08-02 11:40] LABS: PTH, INTACT 9 pg/mL (15-65)
[2023-08-02] MEDS ORDERED: KEY,NONCONTROL,TO KEEP IN PYXI 1 EA MC ONE ×2 (18:03→22:46)
[2023-08-03] VITALS (10 sets, daily range): BP systolic 69–76; BP diastolic 50–53; TEMP 97.4–98; O2SAT 94–99
[2023-08-03] MEDS ORDERED: KEY,NONCONTROL,TO KEEP IN PYXI 1 EA MC ONE ×3 (04:11→18:28)
[2023-08-03] MEDS: MORPHINE SULFATE PF DRIP 100 MG in IV D5W 96 ML IV PRN ×2 (04:15→15:04)
[2023-08-04] VITALS (10 sets, daily range): BP systolic 96–100; BP diastolic 67–73; TEMP 96.8–97.2; O2SAT 80–100
[2023-08-04] MEDS ORDERED: KEY,NONCONTROL,TO KEEP IN PYXI 1 EA MC ONE ×3 (03:33→20:12)
[2023-08-04] MEDS: MORPHINE SULFATE PF DRIP 100 MG in IV D5W 96 ML IV PRN ×2 (03:40→15:12)
[2023-08-04 12:44] LABS: *SPE A/G RATIO 0.2 (0.7-1.7); *SPE ALBUMIN 1.5 g/dL (2.9-4.4); *SPE ALPHA-1-GLOBULIN 0.4 g/dL (0.0-0.4); *SPE ALPHA-2-GLOBULIN 0.8 g/dL (0.4-1.0); *SPE BETA GLOBULIN 2.9 g/dL (0.7-1.3); *SPE GLOBULIN, TOTAL 7.1 g/dL (2.2-3.9); *SPE M-SPIKE Not Observed g/dL (Not Observed); *SPE PROTEIN TOTAL 8.6 g/dL (6.0-8.5)
[2023-08-05] VITALS: BP 110/70; TEMP 98.2; O2SAT 98
[2023-08-05 02:00] VITALS: BP 95/75; TEMP 96.5; O2SAT 100
[2023-08-05] MEDS ORDERED: KEY,NONCONTROL,TO KEEP IN PYXI 1 EA MC ONE ×2 (05:00→06:52)
== END 2023-08-05 07:00 | DRG 720 ==
LOC: ER 13:10 → MEDSG1 16:24 → TELE1 17:02 → ICU 07-31 01:47 → MEDSG1 08-02 11:38
PROVIDERS: ADMIT Internal Medicine; ATTEND Nurse Practitioner Family
PROC: 5A1945Z Respiratory Ventilation, 24-96 Consecutive Hours (ICD-10-PCS; principal; 2023-07-30)
DX: A41.9 Sepsis, unspecified organism (principal); N17.0 Acute kidney failure with tubular necrosis; R65.21 Severe sepsis with septic shock; M72.6 Necrotizing fasciitis; G93.40 Encephalopathy, unspecified; E43 Unspecified severe protein-calorie malnutrition; J15.69 Pneumonia due to other Gram-negative bacteria; L89.814 Pressure ulcer of head, stage 4; L89.154 Pressure ulcer of sacral region, stage 4; L89.894 Pressure ulcer of other site, stage 4; L89.523 Pressure ulcer of left ankle, stage 3; J96.10 Chronic respiratory failure, unspecified whether with hypoxia or hypercapnia; D75.838 Other thrombocytosis; E87.1 Hypo-osmolality and hyponatremia; R53.2 Functional quadriplegia; Z99.11 Dependence on respirator [ventilator] status; Z93.0 Tracheostomy status; Z93.1 Gastrostomy status; Z87.820 Personal history of traumatic brain injury; Z51.5 Encounter for palliative care; Z66 Do not resuscitate; Z86.711 Personal history of pulmonary embolism; Z87.442 Personal history of urinary calculi; K21.9 Gastro-esophageal reflux disease without esophagitis; M62.82 Rhabdomyolysis; Z87.39 Personal history of other diseases of the musculoskeletal system and connective tissue; Z86.14 Personal history of Methicillin resistant Staphylococcus aureus infection; Z79.899 Other long term (current) drug therapy; Z88.8 Allergy status to other drugs, medicaments and biological substances; Z79.51 Long term (current) use of inhaled steroids; D64.9 Anemia, unspecified; E83.52 Hypercalcemia; E86.9 Volume depletion, unspecified; Z74.09 Other reduced mobility; E88.09 Other disorders of plasma-protein metabolism, not elsewhere classified; G40.909 Epilepsy, unspecified, not intractable, without status epilepticus; I12.9 Hypertensive chronic kidney disease with stage 1 through stage 4 chronic kidney disease, or unspecified chronic kidney disease; M24.561 Contracture, right knee; M24.562 Contracture, left knee; M89.8X9 Other specified disorders of bone, unspecified site; N18.30 Chronic kidney disease, stage 3 unspecified; N49.3 Fournier gangrene; R13.10 Dysphagia, unspecified; Y95 Nosocomial condition; S31.103A Unspecified open wound of abdominal wall, right lower quadrant without penetration into peritoneal cavity, initial encounter; S71.102A Unspecified open wound, left thigh, initial encounter; Y92.9 Unspecified place or not applicable; X58.XXXA Exposure to other specified factors, initial encounter; R74.8 Abnormal levels of other serum enzymes; M46.28 Osteomyelitis of vertebra, sacral and sacrococcygeal region
CPT/HCPCS: 31720; 36415; 71045-TC; 72192-TC; 76770-TC; 80048-TC; 80053-TC; 80076-TC; 81001; 82533; 82550-TC; 82570-TC; 83735-TC; 83970; 84100-TC; 84155; 84165; 84300-TC; 85025-TC; 87040-TC; 87081-TC; 87086-TC; 94003-TC; 94640-TC; 94664-TC; 94762-TC; 94799-TC; 99082-TC; A4223; A4623; A6403; A7526; G0378; J0456; J0692; J0885; J1644; J2274; J2543; J3370; J7030; J7050; J7060